=== PATIENT | male | born 1950 | race Caucasian/White ===

== ENCOUNTER → 2016-08-26 | Outpatient (CLI) | payer MEDICARE, MEDICAID ==
[2016-08-26 11:09] LABS: Basophils # (auto) 0.1 uL; Basophils % (auto) 0.9 % (0.0-2.0); Eosinophils # (auto) 0.3 uL; Eosinophils % (auto) 3.8 % (0.0-7.0); Hematocrit 42.1 % (41.0-53.0); Hemoglobin 13.3 g/dL (13.5-17.5); Lymphocytes # (auto) 1.5 uL; Lymphocytes % (auto) 18.2 % (10.0-50.0); Mean Corpuscular Hemoglobin 29.6 pg (28.0-32.0); Mean Corpuscular Hgb Conc. 31.5 g/dL (32.0-36.0); Mean Corpuscular Volume 93.8 fL (80.0-100.0); Mean Platelet Volume 7.8 fL (7.4-10.4); Monocytes # (auto) 0.8 uL; Neutrophils # (auto) 5.8 uL; Neutrophils % (auto) 68.1 % (37.0-80.0); Platelet Count (auto) 348 10^3/uL (140-450); Red Cell Distribution Width 14.5 % (11.6-16.0); White Blood Cell 8.5 10^3/uL (4.4-10.8)
[2016-08-26 11:50] LABS: Albumin 3.7 g/dL (3.4-5.0); BUN/Creatinine Ratio 9.9; Bilirubin, Total 0.2 mg/dL (0.2-1.0); Calcium 9.6 mg/dL (8.5-10.1); Potassium 4.1 mmol/L (3.5-5.1); Total Protein 7.8 g/dL (6.4-8.2)
[2016-08-26 11:52] LABS: Vitamin B12 > 2000 pg/mL (211-911)
== END | disposition home or self-care (01) ==
LOC: LAB 10:38
PROVIDERS: ATTEND Internal Medicine
DX: C61 Malignant neoplasm of prostate (principal); D61.818 Other pancytopenia
CPT/HCPCS: 36415; 80053; 82306; 82607; 83615; 84153; 85025

== ENCOUNTER → 2017-02-28 | Outpatient (CLI) | payer MEDICARE, MEDICAID ==
[~2017-02-28] MED LIST: CARB200T4 PO; CHOL20007 OR; CLOP75TA41 PO; DULO20CA PO; LEVO200I5 IV; LITH300C3 PO; LUBI24CA6 PO; NITR0.4S29 SL; RANI150C11 PO; RIS1T PO; SIMV-13 PO; TEMA30CA PO; TRIA0.5C10 TOP
[2017-02-28 09:09] LABS: Basophils # (auto) 0.1 uL; Basophils % (auto) 0.9 % (0.0-2.0); CONDITION Y; Eosinophils # (auto) 0.3 uL; Hematocrit 35.9 % (41.0-53.0); Hemoglobin 11.9 g/dL (13.5-17.5); Lymphocytes # (auto) 1.4 uL; Mean Corpuscular Hemoglobin 32.1 pg (28.0-32.0); Mean Corpuscular Hgb Conc. 33.3 g/dL (32.0-36.0); Mean Corpuscular Volume 96.5 fL (80.0-100.0); Mean Platelet Volume 8.2 fL (7.4-10.4); Monocytes # (auto) 0.6 uL; Monocytes % (auto) 8.5 % (0.0-12.0); Neutrophils # (auto) 4.3 uL; Neutrophils % (auto) 65.6 % (37.0-80.0); Platelet Count (auto) 268 10^3/uL (140-450); Red Cell Distribution Width 15.5 % (11.6-16.0); White Blood Cell 6.6 10^3/uL (4.4-10.8)
[2017-02-28 17:37] LABS: Potassium 3.8 mmol/L (3.5-5.1)
[2017-02-28 17:54] LABS: Albumin 3.4 g/dL (3.4-5.0); BUN/Creatinine Ratio 7.7; Calcium 8.8 mg/dL (8.5-10.1)
[2017-02-28 17:58] LABS: Bilirubin, Total 0.3 mg/dL (0.2-1.0); Total Protein 6.7 g/dL (6.4-8.2)
== END | disposition home or self-care (01) ==
LOC: LAB 08:11
PROVIDERS: ATTEND Internal Medicine
DX: C61 Malignant neoplasm of prostate (principal); D61.818 Other pancytopenia; E55.9 Vitamin D deficiency, unspecified
CPT/HCPCS: 36415; 80053; 82306; 83615; 84153; 85025

== ENCOUNTER → 2017-04-25 | Outpatient (CLI) | payer MEDICARE, MEDICAID | END | disposition home or self-care (01) | LOC: LAB 06:41 | PROVIDERS: ATTEND Internal Medicine | DX: C61 Malignant neoplasm of prostate (principal); D64.9 Anemia, unspecified; Z85.9 Personal history of malignant neoplasm, unspecified | CPT/HCPCS: 84153 ==

== ENCOUNTER → 2017-07-29 | Outpatient (CLI) | payer MEDICARE, MEDICAID ==
[2017-07-29 12:22] LABS: Basophils # (auto) 0.1 uL; Basophils % (auto) 0.8 % (0.0-2.0); Eosinophils # (auto) 0.1 uL; Eosinophils % (auto) 2.1 % (0.0-7.0); Hematocrit 39.6 % (41.0-53.0); Mean Corpuscular Hemoglobin 31.6 pg (28.0-32.0); Mean Corpuscular Hgb Conc. 32.8 g/dL (32.0-36.0); Mean Corpuscular Volume 96.5 fL (80.0-100.0); Monocytes # (auto) 0.7 uL; Neutrophils % (auto) 73.1 % (37.0-80.0); Platelet Count (auto) 258 10^3/uL (140-450); Red Blood Cells 4.11 10^6/uL (4.5-5.90); Red Cell Distribution Width 13.9 % (11.8-14.3); White Blood Cell 6.9 10^3/uL (4.4-10.8)
[2017-07-29 13:36] LABS: Albumin 3.6 g/dL (3.4-5.0); BUN/Creatinine Ratio 9.3; Bilirubin, Total 0.3 mg/dL (0.2-1.0); Potassium 3.9 mmol/L (3.5-5.1); Total Protein 7.6 g/dL (6.4-8.2)
== END | disposition home or self-care (01) ==
LOC: LAB 11:07
PROVIDERS: ATTEND Internal Medicine
DX: C61 Malignant neoplasm of prostate (principal)
CPT/HCPCS: 36415; 80053; 83615; 84153; 85025

== ENCOUNTER → 2017-09-27 | Outpatient (CLI) | payer MEDICARE, MEDICAID ==
[2017-09-27 08:23] LABS: Basophils # (auto) 0.1 uL; Basophils % (auto) 1.3 % (0.0-2.0); Eosinophils # (auto) 0.3 uL; Eosinophils % (auto) 6.4 % (0.0-7.0); Hematocrit 39.1 % (41.0-53.0); Hemoglobin 12.9 g/dL (13.5-17.5); Lymphocytes # (auto) 0.8 uL; Mean Corpuscular Hemoglobin 31.7 pg (28.0-32.0); Monocytes # (auto) 0.6 uL; Monocytes % (auto) 12.3 % (0.0-12.0); Neutrophils # (auto) 3.1 uL; Nucleated Red Blood Cells % 0.1 %; Platelet Count (auto) 251 10^3/uL (140-450); Red Blood Cells 4.07 10^6/uL (4.5-5.90); Red Cell Distribution Width 14.1 % (11.8-14.3); White Blood Cell 4.9 10^3/uL (4.4-10.8)
[2017-09-27 09:06] LABS: Albumin 3.5 g/dL (3.4-5.0); BUN/Creatinine Ratio 15.1; Calcium 8.9 mg/dL (8.5-10.1); Potassium 4.4 mmol/L (3.5-5.1)
[2017-09-27 09:09] LABS: Bilirubin, Total 0.2 mg/dL (0.2-1.0); Total Protein 7.2 g/dL (6.4-8.2)
== END | disposition home or self-care (01) ==
LOC: LAB 07:39
PROVIDERS: ATTEND Internal Medicine
DX: C61 Malignant neoplasm of prostate (principal); D61.818 Other pancytopenia; R79.89 Other specified abnormal findings of blood chemistry; I10 Essential (primary) hypertension; F31.9 Bipolar disorder, unspecified; Z79.899 Other long term (current) drug therapy
CPT/HCPCS: 36415; 80053; 82105; 82668; 83615; 84153; 85025

== ENCOUNTER → 2018-04-27 | Outpatient (CLI) | payer MEDICARE, MEDICAID ==
[2018-04-27 15:05] LABS: Basophils # (auto) 0.1 uL; Basophils % (auto) 1.3 % (0.0-2.0); Eosinophils # (auto) 0.2 uL; Eosinophils % (auto) 4.8 % (0.0-7.0); Hemoglobin 13.2 g/dL (13.5-17.5); Lymphocytes # (auto) 0.8 uL; Lymphocytes % (auto) 15.3 % (10.0-50.0); Mean Corpuscular Hemoglobin 32.7 pg (28.0-32.0); Mean Corpuscular Hgb Conc. 33.7 g/dL (32.0-36.0); Monocytes # (auto) 0.5 uL; Monocytes % (auto) 9.9 % (0.0-12.0); Neutrophils # (auto) 3.4 uL; Neutrophils % (auto) 68.7 % (37.0-80.0); Platelet Count (auto) 243 10^3/uL (140-450); Red Blood Cells 4.02 10^6/uL (4.5-5.90); Red Cell Distribution Width 13.3 % (11.8-14.3)
[2018-04-27 15:12] LABS: Albumin 3.6 g/dL (3.4-5.0); BUN/Creatinine Ratio 9.2; Potassium 4.3 mmol/L (3.5-5.1)
[2018-04-27 15:15] LABS: Bilirubin, Total 0.3 mg/dL (0.2-1.0); Total Protein 7.6 g/dL (6.4-8.2)
[2018-04-27 15:20] LABS: Prostate Specific Antigen 0.05 ng/mL (0.0-4.0)
== END | disposition home or self-care (01) ==
LOC: LAB 14:11
PROVIDERS: ATTEND Internal Medicine
DX: C61 Malignant neoplasm of prostate (principal)
CPT/HCPCS: 36415; 80053; 82607; 83615; 84153; 85025

== ENCOUNTER → 2018-08-30 | Outpatient (CLI) | payer MEDICARE, MEDICAID ==
[2018-08-30 13:31] LABS: Basophils # (auto) 0 uL; Eosinophils # (auto) 0.2 uL; Eosinophils % (auto) 4.1 % (0.0-7.0); Hematocrit 39.2 % (41.0-53.0); Lymphocytes # (auto) 0.9 uL; Lymphocytes % (auto) 20.2 % (10.0-50.0); Mean Corpuscular Hemoglobin 32.3 pg (28.0-32.0); Mean Corpuscular Volume 97.9 fL (80.0-100.0); Monocytes # (auto) 0.5 uL; Monocytes % (auto) 11.1 % (0.0-12.0); Neutrophils # (auto) 2.8 uL; Neutrophils % (auto) 63.6 % (37.0-80.0); Platelet Count (auto) 261 10^3/uL (140-450); Red Blood Cells 4.01 10^6/uL (4.5-5.90); Red Cell Distribution Width 13.6 % (11.8-14.3); White Blood Cell 4.4 10^3/uL (4.4-10.8)
[2018-08-30 15:15] LABS: Albumin 3.6 g/dL (3.4-5.0); Calcium 9.6 mg/dL (8.5-10.1); Potassium 4.4 mmol/L (3.5-5.1)
[2018-08-30 15:19] LABS: BUN/Creatinine Ratio 12.1; Bilirubin, Total 0.3 mg/dL (0.2-1.0); Total Protein 7.5 g/dL (6.4-8.2)
== END | disposition home or self-care (01) ==
LOC: LAB 13:17
PROVIDERS: ATTEND Internal Medicine
DX: C61 Malignant neoplasm of prostate (principal); D61.818 Other pancytopenia; G89.3 Neoplasm related pain (acute) (chronic)
CPT/HCPCS: 36415; 80053; 83615; 84153; 85025

== ENCOUNTER 2018-10-11 15:00 | Day surgery (SDC) | payer MEDICARE, MEDICAID ==
[~2018-10-11] VITALS: Ht 175.3 cm; Wt 81.6 kg
[2018-10-11] MEDS ORDERED: ATROPINE SULFATE 1 MG/1 ML VIAL ONE (15:07)
[2018-10-11] MEDS ORDERED: ANGIOMAX 250 MG VIAL IV ONE (15:07)
[2018-10-11] MEDS ORDERED: SODIUM CHL 0.9% 50 ML ONE (15:08)
[2018-10-11] MEDS ORDERED: fentaNYL CITRATE 100 MCG/2 ML VL ONE (15:08)
[2018-10-11] MEDS ORDERED: EPINEPHrine HCL 1 MG/10 ML SYRG ONE (15:08)
[2018-10-11] MEDS ORDERED: EPTIFIBATIDE INJ (2MG/ML) 10ML VIAL IV ONE (15:08)
[2018-10-11] MEDS ORDERED: DOPamine 1600MCG/ML D5W 0 ML IV ONE (15:08)
[2018-10-11] MEDS ORDERED: NITROGLYCERIN 50MG/250ML 0 ML IV ONE (15:08)
[2018-10-11] MEDS ORDERED: MIDAZOLAM HCL 1MG/1ML-2 ML VIAL ONE (15:08)
[2018-10-11] MEDS ORDERED: LIDOCAINE 2%HCL (LOCAL ANESTH.) INJ 20ML MDV ONE (15:09)
[2018-10-11] MEDS ORDERED: IOHEXOL 350 MG/ML 100ML IJ ONE (15:09)
[2018-10-11] MEDS ORDERED: MORPHINE SULFATE 4 MG/ML SYR/VIAL IV ONE (15:15)
[2018-10-11] MEDS ORDERED: HEPARIN 1,000 UNITS/ml 1ML VIAL IV ONE (15:15)
[2018-10-11 15:29] VITALS: BP 134/105
[2018-10-11 15:54] LABS: Basophils # (auto) 0 uL; Basophils % (auto) 0.8 % (0.0-2.0); Eosinophils # (auto) 0.1 uL; Eosinophils % (auto) 2.9 % (0.0-7.0); Hematocrit 34.8 % (41.0-53.0); Hemoglobin 11.7 g/dL (13.5-17.5); Lymphocytes % (auto) 19.7 % (10.0-50.0); Mean Corpuscular Hemoglobin 33.2 pg (28.0-32.0); Mean Corpuscular Hgb Conc. 33.6 g/dL (32.0-36.0); Mean Corpuscular Volume 98.7 fL (80.0-100.0); Monocytes # (auto) 0.5 uL; Monocytes % (auto) 10.8 % (0.0-12.0); Neutrophils # (auto) 3.2 uL; Neutrophils % (auto) 65.8 % (37.0-80.0); Platelet Count (auto) 229 10^3/uL (140-450); Red Blood Cells 3.53 10^6/uL (4.5-5.90); Red Cell Distribution Width 13.8 % (11.8-14.3); White Blood Cell 4.9 10^3/uL (4.4-10.8)
[2018-10-11 16:01] LABS: Chloride 108 mmol/L (98-107); Potassium 4.2 mmol/L (3.5-5.1); Sodium 139 mmol/L (136-145)
[2018-10-11 16:03] LABS: INR 0.93 (0.9-1.15); Partial Thromboplastin Time 24.9 sec (23.78-33.04)
[2018-10-11 16:14] LABS: Alanine Aminotransferase 62 U/L (16-61); Albumin 3.5 g/dL (3.4-5.0); Alkaline Phosphatase 107 U/L (45-117); Anion Gap 2 (5-15); Aspartate Aminotransferase 22 U/L (15-37); Bilirubin, Total 0.3 mg/dL (0.2-1.0); Blood Urea Nitrogen 12 mg/dL (7-18); Calcium 9.1 mg/dL (8.5-10.1); Carbon Dioxide 29 mmol/L (21-32); GFR African American 106 mL/min; GFR Non-African American 87 mL/min; Glucose 98 mg/dL (74-106); Magnesium 2.5 mg/dL (1.6-2.6)
[2018-10-11] MEDS ORDERED: SODIUM CHLORIDE 0.9% 1,000 ML IV SCH (16:40)
== END 2018-10-11 18:20 | disposition home or self-care (01) ==
LOC: EDBD 15:00 → ER 15:03 → CATH 15:18
PROVIDERS: ATTEND Internal Medicine Cardiovascular Disease
DX: I25.10 Atherosclerotic heart disease of native coronary artery without angina pectoris (principal); R29.818 Other symptoms and signs involving the nervous system; E78.00 Pure hypercholesterolemia, unspecified; I10 Essential (primary) hypertension; F41.9 Anxiety disorder, unspecified; F31.9 Bipolar disorder, unspecified; F20.89 Other schizophrenia; E11.9 Type 2 diabetes mellitus without complications; J43.8 Other emphysema; Z88.8 Allergy status to other drugs, medicaments and biological substances; Z86.73 Personal history of transient ischemic attack (TIA), and cerebral infarction without residual deficits; Z95.5 Presence of coronary angioplasty implant and graft; Z98.890 Other specified postprocedural states
CPT/HCPCS: 36415; 71045; 80053; 83735; 84484; 85025; 85610; 85730; 93458; A6257; C1760; C1887; C1894; J1644; J2270; J7030; Q9967; 99152; 99153; J0461; J2250

== ENCOUNTER → 2019-01-08 | Outpatient (CLI) | payer MEDICARE ==
[~2019-01-08] MED LIST changes: +BENZ1TAB2 PO; +DOCU-94 PO; +FERR-20 PO; +KEP500T PO; -LEVO200I5 IV; +LEVO200I5 PO; +LITH150C6 PO; +LURA40TA PO; +PERCOT PO; +VALB80CA PO
[2019-01-08 11:56] LABS: Basophils # (auto) 0.1 uL; Basophils % (auto) 1.5 % (0.0-2.0); Eosinophils # (auto) 0.1 uL; Eosinophils % (auto) 1.7 % (0.0-7.0); Hematocrit 42.4 % (41.0-53.0); Hemoglobin 14.2 g/dL (13.5-17.5); Lymphocytes % (auto) 21.8 % (10.0-50.0); Mean Corpuscular Hemoglobin 32.4 pg (28.0-32.0); Mean Corpuscular Hgb Conc. 33.5 g/dL (32.0-36.0); Mean Corpuscular Volume 96.7 fL (80.0-100.0); Monocytes # (auto) 0.3 uL; Monocytes % (auto) 7.7 % (0.0-12.0); Neutrophils # (auto) 2.9 uL; Neutrophils % (auto) 67.3 % (37.0-80.0); Platelet Count (auto) 277 10^3/uL (140-450); Red Blood Cells 4.38 10^6/uL (4.5-5.90); Red Cell Distribution Width 13.8 % (11.8-14.3); White Blood Cell 4.4 10^3/uL (4.4-10.8)
[2019-01-08 12:22] LABS: Albumin 3.5 g/dL (3.4-5.0); Calcium 9.8 mg/dL (8.5-10.1); Potassium 3.7 mmol/L (3.5-5.1)
[2019-01-08 12:25] LABS: BUN/Creatinine Ratio 10.4; Bilirubin, Total 0.3 mg/dL (0.2-1.0); Total Protein 7.2 g/dL (6.4-8.2)
== END | disposition home or self-care (01) ==
LOC: LAB 10:29
PROVIDERS: ATTEND Internal Medicine
DX: D61.818 Other pancytopenia (principal); Z85.46 Personal history of malignant neoplasm of prostate
CPT/HCPCS: 36415; 80053; 83615; 84153; 85025

== ENCOUNTER → 2019-01-29 | Outpatient (CLI) | payer MEDICARE ==
[~2019-01-29] MED LIST changes: +CYAN100056 PO; +LEUP45IN2 IM; +POLYSOL2 EACHEYE
== END | disposition home or self-care (01) ==
LOC: LAB 10:41
PROVIDERS: ATTEND Internal Medicine
DX: A04.71 Enterocolitis due to Clostridium difficile, recurrent (principal)
CPT/HCPCS: 82270; 87045; 87899

== ENCOUNTER 2019-02-02 23:13 | Inpatient (IN) | payer MEDICARE, MEDICAID | END 2019-02-09 21:37 | disposition home or self-care (01) | LOC: ER 23:13 → TELE 23:14 → CENTRAL 02-08 21:15 → TELE-CENTR 02-03 10:03 | PROC: 0DH63UZ Insertion of Feeding Device into Stomach, Percutaneous Approach (ICD-10-PCS; principal; 2019-02-07 11:07) | DX: A41.9 Sepsis, unspecified organism (principal); G93.41 Metabolic encephalopathy; N39.0 Urinary tract infection, site not specified; E87.0 Hyperosmolality and hypernatremia; G40.89 Other seizures; E44.0 Moderate protein-calorie malnutrition; E87.1 Hypo-osmolality and hyponatremia; N17.9 Acute kidney failure, unspecified; R13.10 Dysphagia, unspecified; G20 Parkinson's disease; E86.0 Dehydration; R62.7 Adult failure to thrive; E78.00 Pure hypercholesterolemia, unspecified; F31.9 Bipolar disorder, unspecified; I10 Essential (primary) hypertension; G24.01 Drug induced subacute dyskinesia; E78.5 Hyperlipidemia, unspecified; R26.9 Unspecified abnormalities of gait and mobility; T43.595A Adverse effect of other antipsychotics and neuroleptics, initial encounter; Z86.73 Personal history of transient ischemic attack (TIA), and cerebral infarction without residual deficits; E03.9 Hypothyroidism, unspecified; K44.9 Diaphragmatic hernia without obstruction or gangrene ==

== ENCOUNTER → 2019-05-01 | Outpatient (CLI) | payer MEDICARE, MEDICAID ==
[~2019-05-01] MED LIST changes: -LITH150C6 PO
[2019-05-01 10:52] LABS: Basophils # (auto) 0.1 uL; Basophils % (auto) 1.4 % (0.0-2.0); Eosinophils # (auto) 0.2 uL; Eosinophils % (auto) 3.7 % (0.0-7.0); Hematocrit 36.9 % (41.0-53.0); Hemoglobin 12.1 g/dL (13.5-17.5); Lymphocytes # (auto) 1.1 uL; Lymphocytes % (auto) 25.8 % (10.0-50.0); Mean Corpuscular Hemoglobin 32.7 pg (28.0-32.0); Mean Corpuscular Hgb Conc. 32.9 g/dL (32.0-36.0); Mean Corpuscular Volume 99.3 fL (80.0-100.0); Monocytes # (auto) 0.6 uL; Monocytes % (auto) 13.3 % (0.0-12.0); Neutrophils # (auto) 2.4 uL; Neutrophils % (auto) 55.8 % (37.0-80.0); Nucleated Red Blood Cells % 0.1 %; Platelet Count (auto) 195 10^3/uL (140-450); Red Blood Cells 3.72 10^6/uL (4.5-5.90); Red Cell Distribution Width 13.2 % (11.8-14.3); White Blood Cell 4.3 10^3/uL (4.4-10.8)
[2019-05-01 11:17] LABS: Albumin 3.4 g/dL (3.4-5.0); BUN/Creatinine Ratio 25.3; Calcium 9.1 mg/dL (8.5-10.1); Potassium 4.2 mmol/L (3.5-5.1)
[2019-05-01 11:20] LABS: Bilirubin, Total 0.1 mg/dL (0.2-1.0); Total Protein 7.3 g/dL (6.4-8.2)
[2019-05-01 11:28] LABS: Prostate Specific Antigen 0.05 ng/mL (0.0-4.0)
== END | disposition home or self-care (01) ==
LOC: LAB 10:00
PROVIDERS: ATTEND Internal Medicine
DX: C61 Malignant neoplasm of prostate (principal); D61.818 Other pancytopenia; G89.3 Neoplasm related pain (acute) (chronic)
CPT/HCPCS: 36415; 80053; 82607; 83615; 84153; 85025

== ENCOUNTER → 2019-08-28 | Outpatient (CLI) | payer MEDICARE ==
[2019-08-28 09:59] LABS: Basophils # (auto) 0.1 uL; Basophils % (auto) 1.2 % (0.0-2.0); Eosinophils # (auto) 0.5 uL; Eosinophils % (auto) 10.7 % (0.0-7.0); Hematocrit 37.7 % (41.0-53.0); Hemoglobin 12.7 g/dL (13.5-17.5); Lymphocytes % (auto) 21.9 % (10.0-50.0); Mean Corpuscular Hgb Conc. 33.7 g/dL (32.0-36.0); Mean Corpuscular Volume 97.7 fL (80.0-100.0); Monocytes # (auto) 0.5 uL; Monocytes % (auto) 10.3 % (0.0-12.0); Neutrophils # (auto) 2.6 uL; Neutrophils % (auto) 55.9 % (37.0-80.0); Nucleated Red Blood Cells % 0.1 %; Platelet Count (auto) 249 10^3/uL (140-450); Red Blood Cells 3.86 10^6/uL (4.5-5.90); Red Cell Distribution Width 13.2 % (11.8-14.3); White Blood Cell 4.6 10^3/uL (4.4-10.8)
[2019-08-28 10:24] LABS: Calcium 9.4 mg/dL (8.5-10.1); Potassium 4.1 mmol/L (3.5-5.1)
[2019-08-28 10:29] LABS: Albumin 3.4 g/dL (3.4-5.0); BUN/Creatinine Ratio 19.8; Bilirubin, Total 0.2 mg/dL (0.2-1.0); Total Protein 7.5 g/dL (6.4-8.2)
[2019-08-28 10:42] LABS: Prostate Specific Antigen 0.03 ng/mL (0.0-4.0)
== END | disposition home or self-care (01) ==
LOC: LAB 09:40
PROVIDERS: ATTEND Internal Medicine
DX: D61.818 Other pancytopenia (principal); C61 Malignant neoplasm of prostate
CPT/HCPCS: 36415; 80053; 82607; 83615; 84153; 85025

== ENCOUNTER 2020-06-25 10:34 | Emergency (ER) | payer MEDICARE, MEDICAID ==
[~2020-06-25] VITALS: Ht 180.3 cm; Wt 79.4 kg
[~2020-06-25 10:34] MED LIST changes: +TRIA0.5C TOP; -TRIA0.5C10 TOP
[2020-06-25 10:42] VITALS: BP 115/87
[2020-06-25 13:32] LABS: Basophils # (auto) 0 10 ^3/uL (0-0.2); Eosinophils # (auto) 0.1 10 ^3/uL (0-0.8); Eosinophils % (auto) 1.2 % (0.0-7.0); Hematocrit 38.3 % (41.0-53.0); Hemoglobin 12.8 g/dL (13.5-17.5); Lymphocytes # (auto) 0.6 10 ^3/uL (0.4-5.4); Lymphocytes % (auto) 13.7 % (10.0-50.0); Mean Corpuscular Hemoglobin 32.5 pg (28.0-32.0); Mean Corpuscular Hgb Conc. 33.5 g/dL (32.0-36.0); Mean Corpuscular Volume 96.9 fL (80.0-100.0); Monocytes # (auto) 0.4 10 ^3/uL (0-1.3); Monocytes % (auto) 8.9 % (0.0-12.0); Neutrophils # (auto) 3.5 10 ^3/uL (1.6-8.6); Neutrophils % (auto) 75.2 % (37.0-80.0); Platelet Count (auto) 278 10^3/uL (140-450); Red Blood Cells 3.95 10^6/uL (4.5-5.90); Red Cell Distribution Width 13.4 % (11.8-14.3); White Blood Cell 4.7 10^3/uL (4.4-10.8)
[2020-06-25 13:52] LABS: Albumin 3.4 g/dL (3.4-5.0); Calcium 9.3 mg/dL (8.5-10.1); Potassium 4.2 mmol/L (3.5-5.1)
[2020-06-25 13:56] LABS: INR 0.97 (0.9-1.15); Partial Thromboplastin Time 24.5 sec (23.0-31.2)
[2020-06-25 13:58] LABS: Bilirubin, Total 0.3 mg/dL (0.2-1.0); Total Protein 7.4 g/dL (6.4-8.2)
== END 2020-06-25 16:25 | disposition left against medical advice (07) ==
LOC: ER 10:34
DX: K94.23 Gastrostomy malfunction (principal); E11.9 Type 2 diabetes mellitus without complications; I10 Essential (primary) hypertension; Z90.49 Acquired absence of other specified parts of digestive tract; Z79.899 Other long term (current) drug therapy; Z98.61 Coronary angioplasty status; Z20.828 Contact with and (suspected) exposure to other viral communicable diseases
CPT/HCPCS: 36415; 80053; 85025; 85610; 85730; 99283; C9803; U0003

== ENCOUNTER → 2020-06-27 | Day surgery (SDC) | payer MEDICARE, MEDICAID ==
[~2020-06-27] MED LIST changes: +LIDOCAINE VISCOUS 2% 15ML UD ONE; +MIDAZOLAM HCL 5 MG/ML-1ML VIAL ONE; +SODIUM CHLORIDE LOCK 10 ML ONE; +ceFAZolin 1GM 2 GM in D5W 5% 100 ML IV ONE; +ceFAZolin 1GM/50ML 50 ML IV ONE; +diphenhdrAMINE HCL 50 MG/1 ML VL ONE; +fentaNYL CITRATE 100 MCG/2 ML VL ONE
[2020-06-27 13:50] VITALS: BP 163/64
== END | disposition home or self-care (01) ==
LOC: GI 11:27
PROVIDERS: ATTEND Internal Medicine Gastroenterology
DX: K94.23 Gastrostomy malfunction (principal); K29.50 Unspecified chronic gastritis without bleeding; G40.909 Epilepsy, unspecified, not intractable, without status epilepticus; J43.9 Emphysema, unspecified; I25.10 Atherosclerotic heart disease of native coronary artery without angina pectoris; F20.9 Schizophrenia, unspecified; F41.9 Anxiety disorder, unspecified; F17.200 Nicotine dependence, unspecified, uncomplicated; F31.9 Bipolar disorder, unspecified; Z98.890 Other specified postprocedural states; Z79.899 Other long term (current) drug therapy; Z95.5 Presence of coronary angioplasty implant and graft; Z85.46 Personal history of malignant neoplasm of prostate; Z80.0 Family history of malignant neoplasm of digestive organs; Z88.8 Allergy status to other drugs, medicaments and biological substances
CPT/HCPCS: 43239; 43246; 82962; 88305; 88342; B4087; J0690; J1200; J2250; J3010; J7030; J7060; 99153; G0500

== ENCOUNTER → 2021-10-16 | Day surgery (SDC) | payer MEDICARE, MEDICAID ==
[2021-10-14 09:14] LABS: Basophils # (auto) 0.1 10 ^3/uL (0-0.2); Eosinophils # (auto) 0.5 10 ^3/uL (0-0.8); Eosinophils % (auto) 8.5 % (0.0-7.0); Hematocrit 35.8 % (41.0-53.0); Hemoglobin 12.7 g/dL (13.5-17.5); Lymphocytes # (auto) 0.9 10 ^3/uL (0.4-5.4); Lymphocytes % (auto) 14.6 % (10.0-50.0); Mean Corpuscular Hemoglobin 33.7 pg (28.0-32.0); Mean Corpuscular Hgb Conc. 35.6 g/dL (32.0-36.0); Mean Corpuscular Volume 94.8 fL (80.0-100.0); Monocytes # (auto) 0.5 10 ^3/uL (0-1.3); Monocytes % (auto) 7.8 % (0.0-12.0); Neutrophils # (auto) 4.2 10 ^3/uL (1.6-8.6); Neutrophils % (auto) 68.1 % (37.0-80.0); Nucleated Red Blood Cells % 0.1 %; Red Blood Cells 3.78 10^6/uL (4.5-5.90); Red Cell Distribution Width 13.2 % (11.8-14.3); White Blood Cell 6.2 10^3/uL (4.4-10.8)
[2021-10-14 09:41] LABS: INR 0.94 (0.9-1.15); Partial Thromboplastin Time 24.7 sec (23.6-33.0)
[2021-10-14 09:50] LABS: Albumin 3.5 g/dL (3.4-5.0); Calcium 9.2 mg/dL (8.5-10.1); Potassium 4.4 mmol/L (3.5-5.1)
[2021-10-14 09:55] LABS: Bilirubin, Total 0.3 mg/dL (0.2-1.0); Total Protein 7.3 g/dL (6.4-8.2)
[~2021-10-16] VITALS: Ht 175.3 cm; Wt 79.8 kg
[~2021-10-16] MED LIST changes: +ARTISOL13 EACHEYE; +ATOR20TA PO; -BENZ1TAB2 PO; +CARB10TA5 PO; -CARB200T4 PO; +CARB200T5 PO; -CLOP75TA41 PO; +CLOP75TA70 PO; -DULO20CA PO; +DULO60CA PO; -FERR-20 PO; +KETO2AER3 EX; -LEUP45IN2 IM; -LIDOCAINE VISCOUS 2% 15ML UD ONE; +PANT40TA2 PO; -RANI150C11 PO; -RIS1T PO; -SIMV-13 PO; -SODIUM CHLORIDE LOCK 10 ML ONE; -TEMA30CA PO; -TRIA0.5C TOP; -ceFAZolin 1GM 2 GM in D5W 5% 100 ML IV ONE; -ceFAZolin 1GM/50ML 50 ML IV ONE
[2021-10-16 14:10] VITALS: BP 132/69
== END | disposition home or self-care (01) ==
LOC: GI 12:42
PROVIDERS: ATTEND Internal Medicine Gastroenterology
DX: R19.5 Other fecal abnormalities (principal); K59.04 Chronic idiopathic constipation; J43.9 Emphysema, unspecified; G47.30 Sleep apnea, unspecified; I25.10 Atherosclerotic heart disease of native coronary artery without angina pectoris; I25.2 Old myocardial infarction; I10 Essential (primary) hypertension; E03.9 Hypothyroidism, unspecified; F32.9 Major depressive disorder, single episode, unspecified; F41.9 Anxiety disorder, unspecified; F17.200 Nicotine dependence, unspecified, uncomplicated; Z95.5 Presence of coronary angioplasty implant and graft; Z98.890 Other specified postprocedural states; Z85.46 Personal history of malignant neoplasm of prostate; Z80.0 Family history of malignant neoplasm of digestive organs; Z20.822 Contact with and (suspected) exposure to COVID-19
CPT/HCPCS: 36415; 45330; 80053; 85025; 85610; 85730; J1200; J2250; J3010; J7030; U0003; 45378

== ENCOUNTER → 2021-11-04 | Outpatient (CLI) | payer OTHER, MEDICAID, MEDICARE ==
[~2021-11-04] MED LIST changes: -MIDAZOLAM HCL 5 MG/ML-1ML VIAL ONE; -diphenhdrAMINE HCL 50 MG/1 ML VL ONE; -fentaNYL CITRATE 100 MCG/2 ML VL ONE
[2021-11-04 11:49] LABS: Basophils # (auto) 0.1 10 ^3/uL (0-0.2); Basophils % (auto) 1.8 % (0.0-2.0); Eosinophils # (auto) 0.5 10 ^3/uL (0-0.8); Eosinophils % (auto) 7.1 % (0.0-7.0); Hematocrit 37.4 % (41.0-53.0); Hemoglobin 12.5 g/dL (13.5-17.5); Lymphocytes # (auto) 0.8 10 ^3/uL (0.4-5.4); Lymphocytes % (auto) 12.2 % (10.0-50.0); Mean Corpuscular Hemoglobin 32.2 pg (28.0-32.0); Mean Corpuscular Hgb Conc. 33.5 g/dL (32.0-36.0); Mean Corpuscular Volume 96.2 fL (80.0-100.0); Monocytes # (auto) 0.6 10 ^3/uL (0-1.3); Monocytes % (auto) 8.4 % (0.0-12.0); Neutrophils # (auto) 4.7 10 ^3/uL (1.6-8.6); Neutrophils % (auto) 70.5 % (37.0-80.0); Nucleated Red Blood Cells % 0.1 %; Red Blood Cells 3.89 10^6/uL (4.5-5.90); Red Cell Distribution Width 13.3 % (11.8-14.3); White Blood Cell 6.6 10^3/uL (4.4-10.8)
[2021-11-04 12:17] LABS: Albumin 3.6 g/dL (3.4-5.0); Calcium 9.3 mg/dL (8.5-10.1); Potassium 4.9 mmol/L (3.5-5.1)
[2021-11-04 12:22] LABS: BUN/Creatinine Ratio 16.4; Bilirubin, Total 0.4 mg/dL (0.2-1.0); Total Protein 7.7 g/dL (6.4-8.2)
== END | disposition home or self-care (01) ==
LOC: LAB 11:32
PROVIDERS: ATTEND Internal Medicine Gastroenterology
DX: K59.02 Outlet dysfunction constipation (principal); R13.19 Other dysphagia; R94.5 Abnormal results of liver function studies; Z86.010 Personal history of colon polyps
CPT/HCPCS: 36415; 80053; 82378; 85025

== ENCOUNTER 2022-02-05 12:36 | Day surgery (SDC) | payer MEDICARE, MEDICAID ==
[2022-02-02 10:23] LABS: Basophils # (auto) 0.1 10 ^3/uL (0-0.2); Eosinophils # (auto) 0.3 10 ^3/uL (0-0.8); Eosinophils % (auto) 4.8 % (0.0-7.0); Hematocrit 37.6 % (41.0-53.0); Hemoglobin 12.3 g/dL (13.5-17.5); Lymphocytes % (auto) 16.3 % (10.0-50.0); Mean Corpuscular Hgb Conc. 32.6 g/dL (32.0-36.0); Mean Corpuscular Volume 95.1 fL (80.0-100.0); Monocytes # (auto) 0.5 10 ^3/uL (0-1.3); Monocytes % (auto) 8.1 % (0.0-12.0); Neutrophils # (auto) 4.5 10 ^3/uL (1.6-8.6); Neutrophils % (auto) 69.8 % (37.0-80.0); Nucleated Red Blood Cells % 0.1 %; Red Blood Cells 3.96 10^6/uL (4.5-5.90); Red Cell Distribution Width 13.5 % (11.8-14.3); White Blood Cell 6.4 10^3/uL (4.4-10.8)
[2022-02-02 10:41] LABS: Potassium 4.3 mmol/L (3.5-5.1)
[2022-02-02 10:44] LABS: INR 0.9 (0.9-1.15); Partial Thromboplastin Time 25.5 sec (24.6-33.4)
[2022-02-02 10:49] LABS: Albumin 3.6 g/dL (3.4-5.0); BUN/Creatinine Ratio 14.8; Bilirubin, Total 0.4 mg/dL (0.2-1.0); Calcium 9.2 mg/dL (8.5-10.1); Total Protein 7.8 g/dL (6.4-8.2)
[~2022-02-05] VITALS: Ht 175.3 cm; Wt 83.0 kg
[~2022-02-05 12:36] MED LIST changes: +CLOB0.055 EX; +FLUO0.059 EX; +HYD25TP TOP; +LACT10SO3 PO; +LEV100T PO; -LEVO200I5 PO
[2022-02-05] MEDS ORDERED: FLUMAZENIL 0.1 MG/ML INJ 10ML MDV IV ONE (13:55)
[2022-02-05] MEDS ORDERED: SODIUM CHLORIDE LOCK 10 ML ONE (13:55)
[2022-02-05] MEDS ORDERED: NALOXONE HCL 0.4 MG/ML VIAL ONE (13:55)
[2022-02-05] MEDS ORDERED: diphenhdrAMINE HCL 50 MG/1 ML VL ONE (13:56)
[2022-02-05] MEDS: fentaNYL CITRATE 100 MCG/2 ML VL ONE ×3 (15:06→15:35)
[2022-02-05] MEDS: MIDAZOLAM HCL 5 MG/ML-1ML VIAL ONE ×2 (15:06→15:17)
[2022-02-05] MEDS ORDERED: ACCU-CHEK COMFORT CURVE STRIP VI ONE (16:15)
[2022-02-05 16:30] VITALS: BP 157/67
== END 2022-02-05 17:00 | disposition home or self-care (01) ==
LOC: GI 12:36
PROVIDERS: ATTEND Internal Medicine Gastroenterology
DX: R97.0 Elevated carcinoembryonic antigen [CEA] (principal); D12.3 Benign neoplasm of transverse colon; Q43.8 Other specified congenital malformations of intestine; K64.8 Other hemorrhoids; K59.09 Other constipation; I25.2 Old myocardial infarction; E11.9 Type 2 diabetes mellitus without complications; G20 Parkinson's disease; E03.9 Hypothyroidism, unspecified; J43.9 Emphysema, unspecified; G47.30 Sleep apnea, unspecified; F31.9 Bipolar disorder, unspecified; Z86.010 Personal history of colon polyps; Z98.890 Other specified postprocedural states; Z79.899 Other long term (current) drug therapy; Z88.8 Allergy status to other drugs, medicaments and biological substances; Z20.822 Contact with and (suspected) exposure to COVID-19; Z95.5 Presence of coronary angioplasty implant and graft; Z80.0 Family history of malignant neoplasm of digestive organs; Z83.42 Family history of familial hypercholesterolemia; Z82.69 Family history of other diseases of the musculoskeletal system and connective tissue; Z81.1 Family history of alcohol abuse and dependence
CPT/HCPCS: 36415; 45385; 80053; 82962; 85025; 85610; 85730; 88305; J1200; J2250; J2310; J3010; J7030; U0003; 99152; 99153

== ENCOUNTER 2022-12-28 18:30 | Inpatient (IN) | payer MEDICARE, MEDICAID ==
[~2022-12-28] VITALS: Ht 170.2 cm; Wt 94.9 kg
[~2022-12-28 18:30] MED LIST changes: +CARB-87 PO; -CARB10TA5 PO; -DULO60CA PO; +DULO60CA41 PO; +FLUO-381 EX; -FLUO0.059 EX; -LURA40TA PO; +LURA40TA2 PO
[2022-12-28 19:12] LABS: Basophils # (auto) 0.1 10 ^3/uL (0-0.2); Basophils % (auto) 0.6 % (0.0-2.0); Eosinophils # (auto) 0.4 10 ^3/uL (0-0.8); Eosinophils % (auto) 3.1 % (0.0-7.0); Hematocrit 40.3 % (41.0-53.0); Hemoglobin 12.9 g/dL (13.5-17.5); Lymphocytes # (auto) 1.2 10 ^3/uL (0.4-5.4); Lymphocytes % (auto) 10.5 % (10.0-50.0); Mean Corpuscular Hemoglobin 31.2 pg (28.0-32.0); Mean Corpuscular Volume 97.4 fL (80.0-100.0); Monocytes # (auto) 0.8 10 ^3/uL (0-1.3); Monocytes % (auto) 7.3 % (0.0-12.0); Neutrophils # (auto) 8.9 10 ^3/uL (1.6-8.6); Neutrophils % (auto) 78.5 % (37.0-80.0); Nucleated Red Blood Cells % 0.1 %; Red Blood Cells 4.14 10^6/uL (4.5-5.90); Red Cell Distribution Width 14.1 % (11.8-14.3); White Blood Cell 11.3 10^3/uL (4.4-10.8)
[2022-12-28 19:34] LABS: Albumin 3.3 g/dL (3.4-5.0); Calcium 9.9 mg/dL (8.5-10.1)
[2022-12-28 19:42] LABS: BUN/Creatinine Ratio 24.1 (10.0-20.0); Bilirubin, Total 0.4 mg/dL (0.2-1.0); Total Protein 8.1 g/dL (6.4-8.2)
[2022-12-28] MEDS ORDERED: AZITHROMYCIN 500MG/ 250ML 250 ML IV ONE (22:30)
[2022-12-28] MEDS ORDERED: cefTRIAXone 1GM/50ML D5W 50 ML IV ONE (22:30)
[2022-12-28 23:00] LABS: Lactic Acid w/Reflex 3.4 mmol/L (0.4-2.0)
[2022-12-29] MEDS ORDERED: levETIRAcetam 500 MG/5ML INJ IV ONE (01:52)
[2022-12-29 04:01] LABS: Urine Bacteria NONE SEEN /hpf (None Seen); Urine Blood 1+ /uL (Negative); Urine Hyaline Cast FEW /lpf (0 - 2); Urine Mucus FEW (None Seen); Urine Specific Gravity 1.023 (1.001-1.035); Urine WBC 3 /hpf (0 - 3)
[2022-12-29] MEDS ORDERED: ONDANSETRON HCL 4 MG/2 ML VIAL IV PRN (04:30)
[2022-12-29] MEDS ORDERED: ACETAMINOPHEN 325 MG TAB PO PRN (04:30)
[2022-12-29] MEDS ORDERED: SODIUM CHLORIDE 0.9% 1,000 ML IV ONE ×2 (04:30→14:15)
[2022-12-29] MEDS: carBAMazepine 200 MG TAB PO SCH ×3 (06:29→23:34)
[2022-12-29] MEDS: levETIRAcetam 500 MG TAB PO SCH ×3 (06:29→23:31)
[2022-12-29] MEDS: LEVOTHYROXINE SODIUM 88 MCG TAB PO SCH (09:50)
[2022-12-29] MEDS: CLOPIDOGREL BISULFATE 75 MG TAB PO SCH (09:51)
[2022-12-29] MEDS: PANTOPRAZOLE 40 MG TAB PO SCH (09:51)
[2022-12-29] MEDS: MEMANTINE HCL 5 MG TAB PO SCH ×2 (09:59→23:32)
[2022-12-29] MEDS ORDERED: LISINOPRIL 10 MG TAB PO SCH (10:00)
[2022-12-29] MEDS ORDERED: VANCOMYCIN PER PHARMACY 0 MG IV SCH (14:15)
[2022-12-29] MEDS ORDERED: VANCOMYCIN 1GM/250ML 250 ML IV ONE (14:45)
[2022-12-29] MEDS: D5W/SOD CHLO 0.9% 1,000 ML IV SCH (15:07)
[2022-12-29] MEDS: LACTULOSE 20Gm/30ML SOLN PEG SCH ×2 (18:57→23:30)
[2022-12-29] MEDS: ATORVASTATIN 20 MG TAB PO SCH (23:32)
[2022-12-30] MEDS: cefTRIAXone 1GM/50ML D5W 50 ML IV SCH ×2 (02:40→22:25)
[2022-12-30] MEDS: D5W/SOD CHLO 0.9% 1,000 ML IV SCH ×4 (02:51→22:39)
[2022-12-30] MEDS: LACTULOSE 20Gm/30ML SOLN PEG SCH ×2 (03:03→07:13)
[2022-12-30] MEDS: AZITHROMYCIN 500MG/ 250ML 250 ML IV SCH ×2 (03:03→22:26)
[2022-12-30 07:04] LABS: Basophils # (auto) 0 10 ^3/uL (0-0.2); Basophils % (auto) 0.3 % (0.0-2.0); Eosinophils # (auto) 0.2 10 ^3/uL (0-0.8); Lymphocytes # (auto) 0.8 10 ^3/uL (0.4-5.4); Mean Corpuscular Volume 103.6 fL (80.0-100.0); Neutrophils # (auto) 10.1 10 ^3/uL (1.6-8.6)
[2022-12-30 07:06] LABS: Eosinophils % (auto) 1.4 % (0.0-7.0); Hematocrit 36.6 % (41.0-53.0); Hemoglobin 10.9 g/dL (13.5-17.5); Lymphocytes % (auto) 6.2 % (10.0-50.0); Mean Corpuscular Hemoglobin 30.9 pg (28.0-32.0); Mean Corpuscular Hgb Conc. 29.8 g/dL (32.0-36.0); Monocytes # (auto) 1.3 10 ^3/uL (0-1.3); Monocytes % (auto) 10.3 % (0.0-12.0); Neutrophils % (auto) 81.8 % (37.0-80.0); Red Blood Cells 3.53 10^6/uL (4.5-5.90); Red Cell Distribution Width 15.2 % (11.8-14.3); White Blood Cell 12.4 10^3/uL (4.4-10.8)
[2022-12-30] MEDS: levETIRAcetam 500 MG TAB PO SCH ×3 (07:15→22:24)
[2022-12-30] MEDS: carBAMazepine 200 MG TAB PO SCH ×3 (07:16→22:24)
[2022-12-30] MEDS: LEVOTHYROXINE SODIUM 88 MCG TAB PO SCH (07:16)
[2022-12-30 07:39] LABS: Potassium 4.1 mmol/L (3.5-5.1)
[2022-12-30 07:56] LABS: Albumin 2.7 g/dL (3.4-5.0); BUN/Creatinine Ratio 26.8 (10.0-20.0); Bilirubin, Total 0.3 mg/dL (0.2-1.0); Calcium 8.8 mg/dL (8.5-10.1); Total Protein 6.5 g/dL (6.4-8.2)
[2022-12-30] MEDS: CLOPIDOGREL BISULFATE 75 MG TAB PO SCH (11:09)
[2022-12-30] MEDS: PANTOPRAZOLE 40 MG TAB PO SCH (11:09)
[2022-12-30] MEDS: MEMANTINE HCL 5 MG TAB PO SCH ×2 (11:09→22:24)
[2022-12-30] MEDS ORDERED: VANCOMYCIN 1GM/250ML 250 ML IV SCH (15:00)
[2022-12-30 17:26] VITALS: BP 121/67
[2022-12-30 20:00] VITALS: BP 153/61
[2022-12-30 22:00] VITALS: BP 153/61
[2022-12-30] MEDS: ATORVASTATIN 20 MG TAB PO SCH (22:24)
[2022-12-30] MEDS: LINEZOLID 600MG/300ML 300 ML IV SCH (23:03)
[2022-12-31 05:00] VITALS: BP 143/62
[2022-12-31] MEDS: carBAMazepine 200 MG TAB PO SCH ×3 (06:11→22:00)
[2022-12-31] MEDS: LEVOTHYROXINE SODIUM 88 MCG TAB PO SCH (06:12)
[2022-12-31] MEDS: D5W/SOD CHLO 0.9% 1,000 ML IV SCH (06:12)
[2022-12-31] MEDS: levETIRAcetam 500 MG TAB PO SCH (06:12)
[2022-12-31 06:31] LABS: Basophils # (auto) 0 10 ^3/uL (0-0.2); Basophils % (auto) 0.2 % (0.0-2.0); Eosinophils # (auto) 0 10 ^3/uL (0-0.8); Eosinophils % (auto) 0.2 % (0.0-7.0); Hematocrit 32.7 % (41.0-53.0); Hemoglobin 10.5 g/dL (13.5-17.5); Lymphocytes # (auto) 0.5 10 ^3/uL (0.4-5.4); Lymphocytes % (auto) 4.6 % (10.0-50.0); Mean Corpuscular Hemoglobin 31.5 pg (28.0-32.0); Mean Corpuscular Volume 98.6 fL (80.0-100.0); Monocytes # (auto) 1.4 10 ^3/uL (0-1.3); Monocytes % (auto) 11.8 % (0.0-12.0); Neutrophils # (auto) 9.8 10 ^3/uL (1.6-8.6); Neutrophils % (auto) 83.2 % (37.0-80.0); Red Blood Cells 3.32 10^6/uL (4.5-5.90); Red Cell Distribution Width 14.5 % (11.8-14.3); White Blood Cell 11.8 10^3/uL (4.4-10.8)
[2022-12-31 06:47] LABS: Calcium 9.3 mg/dL (8.5-10.1); Potassium 3.6 mmol/L (3.5-5.1)
[2022-12-31 06:50] LABS: BUN/Creatinine Ratio 22.2 (10.0-20.0)
[2022-12-31 08:00] VITALS: BP 117/65
[2022-12-31 09:00] VITALS: BP 117/65
[2022-12-31] MEDS: SOD CHL 0.45% 1,000 ML IV SCH ×2 (11:29→23:50)
[2022-12-31] MEDS: LINEZOLID 600MG/300ML 300 ML IV SCH (11:29)
[2022-12-31] MEDS: PANTOPRAZOLE 40 MG/10 ML VIAL INJ IV SCH (11:30)
[2022-12-31] MEDS: CLOPIDOGREL BISULFATE 75 MG TAB PO SCH (11:34)
[2022-12-31] MEDS: MEMANTINE HCL 5 MG TAB PO SCH ×2 (11:34→22:00)
[2022-12-31] MEDS: FREE WATER GT SCH ×3 (12:44→23:52)
[2022-12-31 13:00] VITALS: BP 147/58
[2022-12-31] MEDS: levETIRAcetam 500 MG/5ML ORAL SOLN UD GT SCH ×2 (14:00→23:52)
[2022-12-31] MEDS: Jevity 1.2 Cal/Fiber 1 Liter GT SCH (17:44)
[2022-12-31] MEDS: cefTRIAXone 1GM/50ML D5W 50 ML IV SCH (21:16)
[2022-12-31 22:00] VITALS: BP 135/59
[2022-12-31] MEDS: AZITHROMYCIN 500MG/ 250ML 250 ML IV SCH (23:53)
[2023-01-01] MEDS: ATORVASTATIN 20 MG TAB PEG SCH ×2 (00:07→22:47)
[2023-01-01] MEDS: LINEZOLID 600MG/300ML 300 ML IV SCH ×3 (00:45→10:28)
[2023-01-01] MEDS: FREE WATER GT SCH ×6 (02:10→22:46)
[2023-01-01 05:18] VITALS: BP 128/64
[2023-01-01 05:42] LABS: Albumin 2.2 g/dL (3.4-5.0); Calcium 9.4 mg/dL (8.5-10.1)
[2023-01-01 05:44] LABS: BUN/Creatinine Ratio 17.9 (10.0-20.0)
[2023-01-01 05:46] LABS: Bilirubin, Total 0.3 mg/dL (0.2-1.0); Total Protein 6.2 g/dL (6.4-8.2)
[2023-01-01] MEDS: carBAMazepine 200 MG TAB PO SCH ×3 (06:00→22:00)
[2023-01-01 06:09] LABS: Basophils # (auto) 0 10 ^3/uL (0-0.2); Basophils % (auto) 0.4 % (0.0-2.0); Eosinophils # (auto) 0.2 10 ^3/uL (0-0.8); Eosinophils % (auto) 1.8 % (0.0-7.0); Hematocrit 33.1 % (41.0-53.0); Hemoglobin 10.5 g/dL (13.5-17.5); Lymphocytes # (auto) 1.1 10 ^3/uL (0.4-5.4); Lymphocytes % (auto) 10.3 % (10.0-50.0); Mean Corpuscular Hemoglobin 31.4 pg (28.0-32.0); Mean Corpuscular Hgb Conc. 31.8 g/dL (32.0-36.0); Mean Corpuscular Volume 98.7 fL (80.0-100.0); Monocytes # (auto) 1.3 10 ^3/uL (0-1.3); Monocytes % (auto) 12.2 % (0.0-12.0); Neutrophils # (auto) 7.8 10 ^3/uL (1.6-8.6); Neutrophils % (auto) 75.3 % (37.0-80.0); Nucleated Red Blood Cells % 0.1 %; Red Blood Cells 3.36 10^6/uL (4.5-5.90); Red Cell Distribution Width 14.5 % (11.8-14.3); White Blood Cell 10.4 10^3/uL (4.4-10.8)
[2023-01-01] MEDS: LEVOTHYROXINE SODIUM 88 MCG TAB PO SCH (06:22)
[2023-01-01] MEDS: levETIRAcetam 500 MG/5ML ORAL SOLN UD GT SCH ×2 (06:23→22:46)
[2023-01-01 08:00] VITALS: BP 112/68
[2023-01-01 09:00] VITALS: BP 136/65
[2023-01-01] MEDS: MEMANTINE HCL 5 MG TAB PO SCH (10:27)
[2023-01-01] MEDS: PANTOPRAZOLE 40 MG/10 ML VIAL INJ IV SCH (10:27)
[2023-01-01] MEDS: CLOPIDOGREL BISULFATE 75 MG TAB PEG SCH (10:27)
[2023-01-01 13:00] VITALS: BP 133/64
[2023-01-01 17:00] VITALS: BP 141/70
[2023-01-01] MEDS: cefTRIAXone 1GM/50ML D5W 50 ML IV SCH (21:22)
[2023-01-01 22:00] VITALS: BP 132/66
[2023-01-01] MEDS ORDERED: ATORVASTATIN 20 MG TAB PEG SCH (22:00)
[2023-01-01] MEDS: AZITHROMYCIN 500MG/ 250ML 250 ML IV SCH (22:47)
[2023-01-01] MEDS: Jevity 1.2 Cal/Fiber 1 Liter GT SCH (23:06)
[2023-01-02] MEDS: FREE WATER GT SCH ×6 (02:00→21:40)
[2023-01-02 05:00] VITALS: BP 129/66
[2023-01-02] MEDS: carBAMazepine 200 MG TAB PO SCH (06:00)
[2023-01-02] MEDS: LEVOTHYROXINE SODIUM 88 MCG TAB PO SCH (06:17)
[2023-01-02 06:31] LABS: Alanine Aminotransferase 56 U/L (16-61); Albumin 2.1 g/dL (3.4-5.0); Anion Gap 5 (5-15); Aspartate Aminotransferase 75 U/L (15-37); BUN/Creatinine Ratio 18.4 (10.0-20.0); Blood Urea Nitrogen 18 mg/dL (7-18); Calcium 8.9 mg/dL (8.5-10.1); Carbon Dioxide 23 mmol/L (21-32); Chloride 124 mmol/L (98-107); GFR African American 97 mL/min; GFR Non-African American 80 mL/min; Glucose 99 mg/dL (74-106); Potassium 4.1 mmol/L (3.5-5.1); Sodium 152 mmol/L (136-145)
[2023-01-02 06:33] LABS: Alkaline Phosphatase 81 U/L (45-117); Bilirubin, Total 0.2 mg/dL (0.2-1.0); Total Protein 6.1 g/dL (6.4-8.2)
[2023-01-02 06:38] LABS: Basophils # (auto) 0.1 10 ^3/uL (0-0.2); Basophils % (auto) 0.8 % (0.0-2.0); Eosinophils # (auto) 0.4 10 ^3/uL (0-0.8); Eosinophils % (auto) 4.2 % (0.0-7.0); Hematocrit 31.3 % (41.0-53.0); Hemoglobin 10.2 g/dL (13.5-17.5); Lymphocytes % (auto) 11.4 % (10.0-50.0); Mean Corpuscular Hemoglobin 32.5 pg (28.0-32.0); Mean Corpuscular Hgb Conc. 32.5 g/dL (32.0-36.0); Monocytes % (auto) 10.7 % (0.0-12.0); Neutrophils # (auto) 6.6 10 ^3/uL (1.6-8.6); Neutrophils % (auto) 72.9 % (37.0-80.0); Nucleated Red Blood Cells % 0.1 %; Red Blood Cells 3.13 10^6/uL (4.5-5.90); Red Cell Distribution Width 14.9 % (11.8-14.3)
[2023-01-02 09:16] VITALS: BP 134/78
[2023-01-02] MEDS: PANTOPRAZOLE 40 MG/10 ML VIAL INJ IV SCH (09:48)
[2023-01-02] MEDS: CLOPIDOGREL BISULFATE 75 MG TAB PEG SCH (09:48)
[2023-01-02] MEDS: LINEZOLID 600MG/300ML 300 ML IV SCH ×2 (09:49→21:33)
[2023-01-02] MEDS: levETIRAcetam 500 MG/5ML ORAL SOLN UD GT SCH ×2 (09:49→21:40)
[2023-01-02 12:30] VITALS: BP 134/76
[2023-01-02] MEDS: carBAMazepine 200 MG/10 ML Ud ORAL Susp GT SCH ×2 (14:49→21:41)
[2023-01-02 17:00] VITALS: BP 128/70
[2023-01-02] MEDS: cefTRIAXone 1GM/50ML D5W 50 ML IV SCH (20:11)
[2023-01-02] MEDS: AZITHROMYCIN 500MG/ 250ML 250 ML IV SCH (21:31)
[2023-01-02] MEDS: ATORVASTATIN 20 MG TAB PEG SCH (21:39)
[2023-01-02 22:00] VITALS: BP 124/68
[2023-01-03] MEDS: FREE WATER GT SCH ×6 (01:45→22:23)
[2023-01-03 05:00] VITALS: BP 116/60
[2023-01-03] MEDS: Jevity 1.2 Cal/Fiber 1 Liter GT SCH (06:00)
[2023-01-03] MEDS: LEVOTHYROXINE SODIUM 88 MCG TAB PO SCH (06:00)
[2023-01-03 06:15] LABS: Basophils # (auto) 0.1 10 ^3/uL (0-0.2); Basophils % (auto) 0.6 % (0.0-2.0); Eosinophils # (auto) 0.5 10 ^3/uL (0-0.8); Eosinophils % (auto) 5.8 % (0.0-7.0); Hematocrit 30.1 % (41.0-53.0); Hemoglobin 9.9 g/dL (13.5-17.5); Lymphocytes # (auto) 1.3 10 ^3/uL (0.4-5.4); Lymphocytes % (auto) 13.6 % (10.0-50.0); Mean Corpuscular Hgb Conc. 32.9 g/dL (32.0-36.0); Mean Corpuscular Volume 97.1 fL (80.0-100.0); Monocytes # (auto) 0.9 10 ^3/uL (0-1.3); Monocytes % (auto) 9.4 % (0.0-12.0); Neutrophils # (auto) 6.5 10 ^3/uL (1.6-8.6); Neutrophils % (auto) 70.6 % (37.0-80.0); Nucleated Red Blood Cells % 0.1 %; Red Cell Distribution Width 14.1 % (11.8-14.3); White Blood Cell 9.2 10^3/uL (4.4-10.8)
[2023-01-03 06:33] LABS: Calcium 8.6 mg/dL (8.5-10.1); Potassium 3.8 mmol/L (3.5-5.1)
[2023-01-03 06:35] LABS: BUN/Creatinine Ratio 19.4 (10.0-20.0)
[2023-01-03] MEDS: carBAMazepine 200 MG/10 ML Ud ORAL Susp GT SCH ×3 (07:10→22:22)
[2023-01-03 09:00] VITALS: BP 134/62
[2023-01-03] MEDS: LINEZOLID 600MG/300ML 300 ML IV SCH ×2 (09:33→22:19)
[2023-01-03] MEDS: PANTOPRAZOLE 40 MG/10 ML VIAL INJ IV SCH (09:33)
[2023-01-03] MEDS: CLOPIDOGREL BISULFATE 75 MG TAB PEG SCH (09:33)
[2023-01-03] MEDS: levETIRAcetam 500 MG/5ML ORAL SOLN UD GT SCH ×3 (09:34→22:30)
[2023-01-03 12:30] VITALS: BP 143/80
[2023-01-03 16:41] VITALS: BP 146/75
[2023-01-03] MEDS: cefTRIAXone 1GM/50ML D5W 50 ML IV SCH (20:19)
[2023-01-03 22:00] VITALS: BP 137/71
[2023-01-03] MEDS: AZITHROMYCIN 500MG/ 250ML 250 ML IV SCH (22:19)
[2023-01-03] MEDS: ATORVASTATIN 20 MG TAB PEG SCH (22:21)
[2023-01-04] MEDS: Jevity 1.2 Cal/Fiber 1 Liter GT SCH ×2 (00:54→20:42)
[2023-01-04] MEDS: FREE WATER GT SCH ×6 (00:56→22:09)
[2023-01-04 05:00] VITALS: BP 132/57
[2023-01-04 05:47] LABS: Basophils # (auto) 0 10 ^3/uL (0-0.2); Basophils % (auto) 0.7 % (0.0-2.0); Eosinophils # (auto) 0.3 10 ^3/uL (0-0.8); Eosinophils % (auto) 4.3 % (0.0-7.0); Hematocrit 29.4 % (41.0-53.0); Hemoglobin 9.7 g/dL (13.5-17.5); Lymphocytes # (auto) 0.8 10 ^3/uL (0.4-5.4); Lymphocytes % (auto) 11.9 % (10.0-50.0); Mean Corpuscular Hemoglobin 31.7 pg (28.0-32.0); Mean Corpuscular Hgb Conc. 32.9 g/dL (32.0-36.0); Mean Corpuscular Volume 96.5 fL (80.0-100.0); Monocytes # (auto) 0.8 10 ^3/uL (0-1.3); Monocytes % (auto) 11.1 % (0.0-12.0); Red Blood Cells 3.05 10^6/uL (4.5-5.90); Red Cell Distribution Width 14.3 % (11.8-14.3); White Blood Cell 6.9 10^3/uL (4.4-10.8)
[2023-01-04] MEDS: LEVOTHYROXINE SODIUM 88 MCG TAB PO SCH (06:07)
[2023-01-04] MEDS: levETIRAcetam 500 MG/5ML ORAL SOLN UD GT SCH ×3 (06:13→22:09)
[2023-01-04] MEDS: carBAMazepine 200 MG/10 ML Ud ORAL Susp GT SCH ×3 (06:14→22:09)
[2023-01-04 06:17] LABS: Calcium 8.6 mg/dL (8.5-10.1); Potassium 3.9 mmol/L (3.5-5.1)
[2023-01-04 10:57] VITALS: BP 143/59
[2023-01-04] MEDS: CLOPIDOGREL BISULFATE 75 MG TAB PEG SCH (11:08)
[2023-01-04] MEDS: PANTOPRAZOLE 40 MG/10 ML VIAL INJ IV SCH (11:09)
[2023-01-04] MEDS: LINEZOLID 600MG/300ML 300 ML IV SCH ×2 (11:11→22:00)
[2023-01-04 13:00] VITALS: BP 142/82
[2023-01-04 17:00] VITALS: BP 130/73
[2023-01-04] MEDS: cefTRIAXone 1GM/50ML D5W 50 ML IV SCH (20:42)
[2023-01-04] MEDS: AZITHROMYCIN 500MG/ 250ML 250 ML IV SCH (21:59)
[2023-01-04 22:00] VITALS: BP 111/55
[2023-01-04] MEDS: ATORVASTATIN 20 MG TAB PEG SCH (22:02)
[2023-01-05] MEDS: FREE WATER GT SCH ×6 (02:26→22:05)
[2023-01-05 05:00] VITALS: BP 128/40
[2023-01-05] MEDS: carBAMazepine 200 MG/10 ML Ud ORAL Susp GT SCH ×3 (05:12→22:05)
[2023-01-05] MEDS: levETIRAcetam 500 MG/5ML ORAL SOLN UD GT SCH ×3 (05:12→22:05)
[2023-01-05 05:37] LABS: Basophils # (auto) 0.1 10 ^3/uL (0-0.2); Eosinophils # (auto) 0.5 10 ^3/uL (0-0.8); Eosinophils % (auto) 6.4 % (0.0-7.0); Hematocrit 29.7 % (41.0-53.0); Hemoglobin 9.8 g/dL (13.5-17.5); Lymphocytes # (auto) 0.9 10 ^3/uL (0.4-5.4); Lymphocytes % (auto) 10.3 % (10.0-50.0); Mean Corpuscular Hemoglobin 31.8 pg (28.0-32.0); Mean Corpuscular Volume 96.3 fL (80.0-100.0); Monocytes # (auto) 0.7 10 ^3/uL (0-1.3); Monocytes % (auto) 8.2 % (0.0-12.0); Neutrophils # (auto) 6.2 10 ^3/uL (1.6-8.6); Neutrophils % (auto) 74.1 % (37.0-80.0); Nucleated Red Blood Cells % 0.1 %; Red Blood Cells 3.09 10^6/uL (4.5-5.90); Red Cell Distribution Width 14.4 % (11.8-14.3); White Blood Cell 8.4 10^3/uL (4.4-10.8)
[2023-01-05] MEDS: LEVOTHYROXINE SODIUM 88 MCG TAB PO SCH (05:43)
[2023-01-05 05:53] LABS: Calcium 8.9 mg/dL (8.5-10.1); Potassium 4.4 mmol/L (3.5-5.1)
[2023-01-05 06:26] LABS: BUN/Creatinine Ratio 19.4 (10.0-20.0)
[2023-01-05 09:00] VITALS: BP 98/64
[2023-01-05] MEDS ORDERED: DOXY-346 GT (09:56)
[2023-01-05] MEDS: CLOPIDOGREL BISULFATE 75 MG TAB PEG SCH (10:38)
[2023-01-05] MEDS: PANTOPRAZOLE 40 MG/10 ML VIAL INJ IV SCH (10:39)
[2023-01-05] MEDS: LINEZOLID 600MG/300ML 300 ML IV SCH ×2 (10:40→22:05)
[2023-01-05 14:58] VITALS: BP 107/65
[2023-01-05 17:00] VITALS: BP 116/60
[2023-01-05 22:00] VITALS: BP 127/67
[2023-01-05] MEDS: ATORVASTATIN 20 MG TAB PEG SCH (22:05)
[2023-01-05] MEDS: cefTRIAXone 1GM/50ML D5W 50 ML IV SCH (22:05)
[2023-01-05] MEDS: AZITHROMYCIN 500MG/ 250ML 250 ML IV SCH (22:05)
[2023-01-06] MEDS: FREE WATER GT SCH ×5 (02:00→18:00)
[2023-01-06 05:00] VITALS: BP 139/65
[2023-01-06] MEDS: levETIRAcetam 500 MG/5ML ORAL SOLN UD GT SCH ×2 (06:03→14:53)
[2023-01-06] MEDS: carBAMazepine 200 MG/10 ML Ud ORAL Susp GT SCH ×2 (06:03→14:53)
[2023-01-06] MEDS: LEVOTHYROXINE SODIUM 88 MCG TAB PO SCH (06:03)
[2023-01-06 09:51] VITALS: BP 124/68
[2023-01-06] MEDS: LINEZOLID 600MG/300ML 300 ML IV SCH (11:01)
[2023-01-06] MEDS: PANTOPRAZOLE 40 MG/10 ML VIAL INJ IV SCH (11:01)
[2023-01-06] MEDS: CLOPIDOGREL BISULFATE 75 MG TAB PEG SCH (11:02)
[2023-01-06] MEDS ORDERED: GASTROGRAFIN 30 ML SOL XX ONE (12:30)
[2023-01-06 13:00] VITALS: BP 132/64
[2023-01-06] MEDS ORDERED: GASTROGRAFIN 30 ML SOL ONE (13:24)
[2023-01-06 16:42] VITALS: BP 145/61
[2023-01-06 22:00] VITALS: BP 135/66
[2023-01-07] MEDS: ATORVASTATIN 20 MG TAB PEG SCH (00:33)
[2023-01-07] MEDS: carBAMazepine 200 MG/10 ML Ud ORAL Susp GT SCH ×3 (00:34→15:01)
[2023-01-07] MEDS: levETIRAcetam 500 MG/5ML ORAL SOLN UD GT SCH ×3 (00:34→15:01)
[2023-01-07] MEDS: cefTRIAXone 1GM/50ML D5W 50 ML IV SCH (00:35)
[2023-01-07] MEDS: LINEZOLID 600MG/300ML 300 ML IV SCH ×2 (00:35→11:19)
[2023-01-07] MEDS: FREE WATER GT SCH ×6 (00:51→17:49)
[2023-01-07] MEDS: AZITHROMYCIN 500MG/ 250ML 250 ML IV SCH (01:25)
[2023-01-07] MEDS: Jevity 1.2 Cal/Fiber 1 Liter GT SCH (03:12)
[2023-01-07 05:00] VITALS: BP 133/61
[2023-01-07] MEDS: LEVOTHYROXINE SODIUM 88 MCG TAB PO SCH (07:53)
[2023-01-07 08:59] VITALS: BP 146/83
[2023-01-07] MEDS: CLOPIDOGREL BISULFATE 75 MG TAB PEG SCH (11:19)
[2023-01-07] MEDS: PANTOPRAZOLE 40 MG/10 ML VIAL INJ IV SCH (11:19)
[2023-01-07 13:00] VITALS: BP 113/74
[2023-01-07 17:00] VITALS: BP 105/76
[2023-01-07 22:00] VITALS: BP 124/58
[2023-01-08] MEDS: cefTRIAXone 1GM/50ML D5W 50 ML IV SCH ×2 (00:42→21:12)
[2023-01-08] MEDS: FREE WATER GT SCH ×7 (00:54→21:14)
[2023-01-08] MEDS: levETIRAcetam 500 MG/5ML ORAL SOLN UD GT SCH ×4 (00:55→21:13)
[2023-01-08] MEDS: carBAMazepine 200 MG/10 ML Ud ORAL Susp GT SCH ×4 (00:56→21:13)
[2023-01-08] MEDS: LINEZOLID 600MG/300ML 300 ML IV SCH ×2 (00:56→10:04)
[2023-01-08] MEDS: ATORVASTATIN 20 MG TAB PEG SCH ×2 (01:06→21:12)
[2023-01-08] MEDS: AZITHROMYCIN 500MG/ 250ML 250 ML IV SCH ×2 (01:24→22:14)
[2023-01-08] MEDS: Jevity 1.2 Cal/Fiber 1 Liter GT SCH (02:43)
[2023-01-08 05:00] VITALS: BP 116/72
[2023-01-08] MEDS: LEVOTHYROXINE SODIUM 88 MCG TAB PO SCH (08:32)
[2023-01-08 09:00] VITALS: BP 119/67
[2023-01-08] MEDS: CLOPIDOGREL BISULFATE 75 MG TAB PEG SCH (10:04)
[2023-01-08] MEDS: PANTOPRAZOLE 40 MG/10 ML VIAL INJ IV SCH (10:04)
[2023-01-08 13:03] VITALS: BP 114/53
[2023-01-08 17:00] VITALS: BP 130/65
[2023-01-08 22:00] VITALS: BP 124/53
[2023-01-09] MEDS: LINEZOLID 600MG/300ML 300 ML IV SCH ×3 (00:29→21:16)
[2023-01-09] MEDS: MORPHINE SULFATE INJ 2 MG/ml SYRG IV PRN ×2 (01:00→06:10)
[2023-01-09] MEDS: FREE WATER GT SCH ×6 (02:00→21:21)
[2023-01-09 05:00] VITALS: BP 118/72
[2023-01-09] MEDS: levETIRAcetam 500 MG/5ML ORAL SOLN UD GT SCH ×3 (06:10→21:21)
[2023-01-09] MEDS: carBAMazepine 200 MG/10 ML Ud ORAL Susp GT SCH ×3 (06:10→21:22)
[2023-01-09] MEDS: Jevity 1.2 Cal/Fiber 1 Liter GT SCH (06:10)
[2023-01-09] MEDS: LEVOTHYROXINE SODIUM 88 MCG TAB PO SCH (06:10)
[2023-01-09 09:00] VITALS: BP 118/44
[2023-01-09] MEDS: PANTOPRAZOLE 40 MG/10 ML VIAL INJ IV SCH (10:46)
[2023-01-09] MEDS: CLOPIDOGREL BISULFATE 75 MG TAB PEG SCH (10:46)
[2023-01-09 13:00] VITALS: BP 132/66
[2023-01-09 17:01] VITALS: BP 124/65
[2023-01-09] MEDS: cefTRIAXone 1GM/50ML D5W 50 ML IV SCH (20:10)
[2023-01-09] MEDS: ATORVASTATIN 20 MG TAB PEG SCH (21:16)
[2023-01-09 22:00] VITALS: BP 131/70
[2023-01-09] MEDS: AZITHROMYCIN 500MG/ 250ML 250 ML IV SCH (23:03)
[2023-01-10] MEDS: FREE WATER GT SCH ×6 (02:00→21:16)
[2023-01-10 05:00] VITALS: BP 103/65
[2023-01-10] MEDS: levETIRAcetam 500 MG/5ML ORAL SOLN UD GT SCH ×3 (05:44→21:16)
[2023-01-10] MEDS: Jevity 1.2 Cal/Fiber 1 Liter GT SCH (05:44)
[2023-01-10] MEDS: LEVOTHYROXINE SODIUM 88 MCG TAB PO SCH (05:44)
[2023-01-10] MEDS: carBAMazepine 200 MG/10 ML Ud ORAL Susp GT SCH ×3 (05:44→21:16)
[2023-01-10] MEDS: PANTOPRAZOLE 40 MG/10 ML VIAL INJ IV SCH ×2 (08:52→10:46)
[2023-01-10 09:00] VITALS: BP 125/61
[2023-01-10] MEDS: LINEZOLID 600MG/300ML 300 ML IV SCH ×2 (10:45→22:29)
[2023-01-10] MEDS: CLOPIDOGREL BISULFATE 75 MG TAB PEG SCH (10:46)
[2023-01-10 12:05] LABS: Basophils # (auto) 0.1 10 ^3/uL (0-0.2); Basophils % (auto) 1.2 % (0.0-2.0); Eosinophils # (auto) 0.3 10 ^3/uL (0-0.8); Eosinophils % (auto) 3.7 % (0.0-7.0); Hematocrit 31.5 % (41.0-53.0); Hemoglobin 10.1 g/dL (13.5-17.5); Lymphocytes # (auto) 1.2 10 ^3/uL (0.4-5.4); Lymphocytes % (auto) 16.5 % (10.0-50.0); Mean Corpuscular Hemoglobin 30.6 pg (28.0-32.0); Mean Corpuscular Hgb Conc. 32.2 g/dL (32.0-36.0); Mean Corpuscular Volume 95.1 fL (80.0-100.0); Monocytes # (auto) 0.8 10 ^3/uL (0-1.3); Monocytes % (auto) 10.7 % (0.0-12.0); Neutrophils % (auto) 67.9 % (37.0-80.0); Nucleated Red Blood Cells % 0.1 %; Red Blood Cells 3.31 10^6/uL (4.5-5.90); Red Cell Distribution Width 14.5 % (11.8-14.3); White Blood Cell 7.4 10^3/uL (4.4-10.8)
[2023-01-10 12:26] LABS: BUN/Creatinine Ratio 12.2 (10.0-20.0); Calcium 8.9 mg/dL (8.5-10.1); Potassium 4.3 mmol/L (3.5-5.1)
[2023-01-10 13:00] VITALS: BP 113/72
[2023-01-10] MEDS: OXYCODONE W/ ACETAMINOPHEN 5/325MG TABLET PO PRN (16:54)
[2023-01-10] MEDS: CARBIDOPA W LEVODOPA 25/250mg TABLET PO SCH ×2 (16:55→21:18)
[2023-01-10 17:00] VITALS: BP 133/72
[2023-01-10] MEDS: cefTRIAXone 1GM/50ML D5W 50 ML IV SCH (21:08)
[2023-01-10] MEDS: ATORVASTATIN 20 MG TAB PEG SCH (21:16)
[2023-01-10 22:00] VITALS: BP 147/94
[2023-01-10] MEDS: AZITHROMYCIN 500MG/ 250ML 250 ML IV SCH (23:57)
[2023-01-11] MEDS: FREE WATER GT SCH ×4 (02:00→18:51)
[2023-01-11 05:00] VITALS: BP 110/51
[2023-01-11] MEDS: CARBIDOPA W LEVODOPA 25/250mg TABLET PO SCH ×2 (06:14→18:50)
[2023-01-11] MEDS: carBAMazepine 200 MG/10 ML Ud ORAL Susp GT SCH ×2 (06:15→18:51)
[2023-01-11] MEDS: levETIRAcetam 500 MG/5ML ORAL SOLN UD GT SCH ×2 (06:15→18:52)
[2023-01-11] MEDS: LEVOTHYROXINE SODIUM 88 MCG TAB PO SCH (06:15)
[2023-01-11] MEDS: LINEZOLID 600MG/300ML 300 ML IV SCH (07:45)
[2023-01-11] MEDS: OXYCODONE W/ ACETAMINOPHEN 5/325MG TABLET PO PRN (07:46)
[2023-01-11] MEDS: CLOPIDOGREL BISULFATE 75 MG TAB PEG SCH (08:00)
[2023-01-11 09:00] VITALS: BP 111/64
[2023-01-11 13:00] VITALS: BP 118/77
[2023-01-11 17:00] VITALS: BP 122/62
== END 2023-01-11 19:40 | disposition home health service (06) | DRG 871 ==
LOC: ER 18:38 → OVERFLOW 12-29 05:17 → EAST 12-30 16:00
PROVIDERS: ADMIT Nurse Practitioner; ATTEND Nurse Practitioner Acute Care
DX: A41.9 Sepsis, unspecified organism (principal); G93.41 Metabolic encephalopathy; J96.01 Acute respiratory failure with hypoxia; N17.0 Acute kidney failure with tubular necrosis; J15.6 Pneumonia due to other Gram-negative bacteria; E87.1 Hypo-osmolality and hyponatremia; E11.9 Type 2 diabetes mellitus without complications; I10 Essential (primary) hypertension; E03.9 Hypothyroidism, unspecified; E78.5 Hyperlipidemia, unspecified; F20.9 Schizophrenia, unspecified; F31.9 Bipolar disorder, unspecified; G20 Parkinson's disease; G40.909 Epilepsy, unspecified, not intractable, without status epilepticus; I25.10 Atherosclerotic heart disease of native coronary artery without angina pectoris; R13.10 Dysphagia, unspecified; Z88.8 Allergy status to other drugs, medicaments and biological substances; Z86.73 Personal history of transient ischemic attack (TIA), and cerebral infarction without residual deficits; Z98.61 Coronary angioplasty status; Z82.49 Family history of ischemic heart disease and other diseases of the circulatory system; I25.2 Old myocardial infarction; Z82.0 Family history of epilepsy and other diseases of the nervous system; Z90.49 Acquired absence of other specified parts of digestive tract; Z80.0 Family history of malignant neoplasm of digestive organs; Z83.42 Family history of familial hypercholesterolemia; Z79.899 Other long term (current) drug therapy; Z79.02 Long term (current) use of antithrombotics/antiplatelets
CPT/HCPCS: 36415; 36600; 70450; 70551; 71045; 71250; 72148; 74018; 74176; 80048; 80053; 80178; 81001; 82140; 82306; 82607; 82805; 82962; 83605; 83690; 84443; 84484; 85025; 87040; 87086; 93005; 93306; 95819; 96361; 96365; 96368; 97110; 97116; 97163; 97530; C9113; G0378; J0696; J7042; J7060

== ENCOUNTER 2023-06-17 14:54 | Inpatient (IN) | payer MEDICARE, MEDICAID ==
[~2023-06-17] VITALS: Ht 175.3 cm; Wt 79.6 kg
[~2023-06-17 14:54] MED LIST changes: +DOXY-346 GT
[2023-06-17] MEDS ORDERED: ACCU-CHEK COMFORT CURVE STRIP VI ONE (15:45)
[2023-06-17 16:30] LABS: Basophils # (auto) 0.1 10 ^3/uL (0-0.2); Basophils % (auto) 0.9 % (0.0-2.0); Eosinophils # (auto) 0.3 10 ^3/uL (0-0.8); Eosinophils % (auto) 3.8 % (0.0-7.0); Hematocrit 37.3 % (41.0-53.0); Hemoglobin 12.2 g/dL (13.5-17.5); Lymphocytes # (auto) 1.5 10 ^3/uL (0.4-5.4); Lymphocytes % (auto) 19.8 % (10.0-50.0); Mean Corpuscular Hemoglobin 30.7 pg (28.0-32.0); Mean Corpuscular Hgb Conc. 32.6 g/dL (32.0-36.0); Mean Corpuscular Volume 94.4 fL (80.0-100.0); Monocytes # (auto) 0.7 10 ^3/uL (0-1.3); Monocytes % (auto) 8.9 % (0.0-12.0); Neutrophils # (auto) 4.9 10 ^3/uL (1.6-8.6); Neutrophils % (auto) 66.6 % (37.0-80.0); Nucleated Red Blood Cells % 0.1 %; Red Blood Cells 3.96 10^6/uL (4.5-5.90); Red Cell Distribution Width 14.8 % (11.8-14.3); White Blood Cell 7.3 10^3/uL (4.4-10.8)
[2023-06-17] MEDS ORDERED: SODIUM CHLORIDE 0.9% 1,000 ML IV ONE (16:45)
[2023-06-17 16:52] LABS: Alanine Aminotransferase 14 U/L (7-40); Albumin 4.6 g/dL (3.2-4.8); Alkaline Phosphatase 105 U/L (46-116); Anion Gap 5 (5-15); Aspartate Aminotransferase 54 U/L (13-40); BUN/Creatinine Ratio 12.7 (10.0-20.0); Blood Urea Nitrogen 19 mg/dL (9-23); Calcium 9.7 mg/dL (8.7-10.4); Carbon Dioxide 25 mmol/L (20-30); Chloride 106 mmol/L (98-107); Glucose 119 mg/dL (74-106); Potassium 4.5 mmol/L (3.5-5.1); Sodium 136 mmol/L (136-145)
[2023-06-17 16:53] LABS: Bilirubin, Total 0.3 mg/dL (0.2-1.0); Total Protein 7.5 g/dL (5.7-8.2)
[2023-06-17] MEDS ORDERED: HYDROcodone-ACET 5/325MG TAB PO PRN (20:30)
[2023-06-17] MEDS ORDERED: ACETAMINOPHEN 325 MG TAB PO PRN (20:30)
[2023-06-17] MEDS ORDERED: DEXTROSE (50%) 50ML SYRG IV PRN (20:30)
[2023-06-17] MEDS ORDERED: ONDANSETRON HCL 4 MG/2 ML VIAL IV PRN (20:30)
[2023-06-17] MEDS ORDERED: DOCUSATE SOD 100 MG CAP PO PRN (20:30)
[2023-06-17 20:45] VITALS: PULSE 70; RESP 14; O2SAT 96
[2023-06-17] MEDS ORDERED: ATORVASTATIN 20 MG TAB PO SCH (22:00)
[2023-06-17] MEDS ORDERED: CARBIDOPA W LEVODOPA 25/100mg TABLET PO SCH (22:00)
[2023-06-17] MEDS: SODIUM CHLORIDE 0.9% 1,000 ML IV SCH (22:37)
[2023-06-17] MEDS: ACCU-CHEK COMFORT CURVE STRIP VI SCH (22:55)
[2023-06-17] MEDS: InsuLIN REG 1unit/0.01ml Soln (100units/ml) SC SCH (22:56)
[2023-06-17] MEDS ORDERED: ATORVASTATIN 20 MG TAB GT SCH (23:15)
[2023-06-17] MEDS ORDERED: HYDROcodone-ACET 5/325MG TAB GT PRN (23:15)
[2023-06-17] MEDS: CARBIDOPA W LEVODOPA 25/100mg TABLET GT SCH (23:37)
[2023-06-17] MEDS: levETIRAcetam 500 MG TAB GT SCH (23:46)
[2023-06-18] VITALS (8 sets, daily range): BP systolic 109–123; BP diastolic 51–65; PULSE 59–64; RESP 14–20; TEMP 98.2–99.1; O2SAT 92–97
[2023-06-18] MEDS ORDERED: NITROGLYCERIN 0.4 MG SL TAB SL PRN
[2023-06-18] MEDS ORDERED: MORPHINE SULFATE INJ 2 MG/ml SYRG IV PRN
[2023-06-18 00:30] LABS: Urine Bacteria FEW /hpf (None Seen); Urine Blood Negative /uL (Negative); Urine Clarity Clear (Clear); Urine Color Yellow (Yellow); Urine Hyaline Cast FEW /lpf (0 - 2); Urine Protein, UAD Negative (Negative); Urine Specific Gravity 1.011 (1.001-1.035); Urine Urobilinogen Normal (Negative); Urine WBC 2 /hpf (0 - 3)
[2023-06-18] MEDS: levETIRAcetam 500 MG TAB GT SCH ×2 (06:23→13:17)
[2023-06-18] MEDS: CARBIDOPA W LEVODOPA 25/100mg TABLET GT SCH ×2 (06:23→13:17)
[2023-06-18] MEDS: ACCU-CHEK COMFORT CURVE STRIP VI SCH ×4 (07:00→21:58)
[2023-06-18] MEDS ORDERED: LEVOTHYROXINE SODIUM 100 MCG TAB GT SCH (07:00)
[2023-06-18] MEDS ORDERED: LEVOTHYROXINE SODIUM 100 MCG TAB PO SCH (07:00)
[2023-06-18] MEDS: InsuLIN REG 1unit/0.01ml Soln (100units/ml) SC SCH ×4 (07:00→21:58)
[2023-06-18 07:33] LABS: Alanine Aminotransferase 15 U/L (7-40); Albumin 3.8 g/dL (3.2-4.8); Alkaline Phosphatase 87 U/L (46-116); Anion Gap 5 (5-15); Aspartate Aminotransferase 41 U/L (13-40); BUN/Creatinine Ratio 14.5 (10.0-20.0); Bilirubin, Total 0.3 mg/dL (0.2-1.0); Blood Urea Nitrogen 19 mg/dL (9-23); Calcium 9.2 mg/dL (8.5-10.1); Carbon Dioxide 26 mmol/L (20-30); Chloride 107 mmol/L (98-107); Glucose 95 mg/dL (74-106); Potassium 3.9 mmol/L (3.5-5.1); Sodium 138 mmol/L (136-145); Total Protein 6.1 g/dL (5.7-8.2)
[2023-06-18 07:36] LABS: Basophils # (auto) 0.1 10 ^3/uL (0-0.2); Eosinophils # (auto) 0.2 10 ^3/uL (0-0.8); Eosinophils % (auto) 2.9 % (0.0-7.0); Hematocrit 31.3 % (41.0-53.0); Hemoglobin 10.2 g/dL (13.5-17.5); Lymphocytes # (auto) 1.2 10 ^3/uL (0.4-5.4); Lymphocytes % (auto) 20.8 % (10.0-50.0); Mean Corpuscular Hemoglobin 30.5 pg (28.0-32.0); Mean Corpuscular Hgb Conc. 32.6 g/dL (32.0-36.0); Mean Corpuscular Volume 93.4 fL (80.0-100.0); Monocytes # (auto) 0.7 10 ^3/uL (0-1.3); Monocytes % (auto) 11.3 % (0.0-12.0); Neutrophils # (auto) 3.8 10 ^3/uL (1.6-8.6); Nucleated Red Blood Cells % 0.1 %; Red Blood Cells 3.35 10^6/uL (4.5-5.90); Red Cell Distribution Width 14.6 % (11.8-14.3); White Blood Cell 5.9 10^3/uL (4.4-10.8)
[2023-06-18] MEDS ORDERED: LURA40TA2 PO (09:41)
[2023-06-18] MEDS ORDERED: HYDR2TAB3 PO (09:41)
[2023-06-18] MEDS ORDERED: CLOP75TA28 PO (09:41)
[2023-06-18] MEDS ORDERED: LUBI24CA6 PO (09:41)
[2023-06-18] MEDS ORDERED: ARTISOL13 EACHEYE (09:41)
[2023-06-18] MEDS ORDERED: PANT1INJ3 PO (09:41)
[2023-06-18] MEDS ORDERED: VALB60CA PO (09:41)
[2023-06-18] MEDS ORDERED: CYA100I PO (09:41)
[2023-06-18] MEDS ORDERED: POLYSOL2 EACHEYE (09:41)
[2023-06-18] MEDS ORDERED: DOCU-94 PO (09:41)
[2023-06-18] MEDS ORDERED: CARB25TA77 PO (09:41)
[2023-06-18] MEDS ORDERED: CHOL20007 PO (09:41)
[2023-06-18] MEDS ORDERED: LEVO88TA4 PO (09:41)
[2023-06-18] MEDS ORDERED: CARB100C3 PO (09:41)
[2023-06-18] MEDS ORDERED: DULO20CA PO (09:41)
[2023-06-18] MEDS ORDERED: KETO2CRE4 TOP (09:41)
[2023-06-18] MEDS ORDERED: FLUO-381 TOP (09:41)
[2023-06-18] MEDS ORDERED: NITR0.4S29 SL (09:41)
[2023-06-18] MEDS ORDERED: HYD25TP TOP (09:41)
[2023-06-18] MEDS ORDERED: KEP500T PO (09:41)
[2023-06-18] MEDS ORDERED: POLY335015 PO (09:41)
[2023-06-18] MEDS ORDERED: LITH300C3 PO (09:41)
[2023-06-18] MEDS ORDERED: LACT10SO3 PO (09:41)
[2023-06-18] MEDS ORDERED: ATOR20TA50 PO (09:41)
[2023-06-18] MEDS ORDERED: CLOPIDOGREL BISULFATE 75 MG TAB PO SCH (10:00)
[2023-06-18] MEDS ORDERED: CLOPIDOGREL BISULFATE 75 MG TAB GT SCH (10:00)
[2023-06-18] MEDS: SODIUM CHLORIDE 0.9% 1,000 ML IV SCH (13:10)
[2023-06-18] MEDS: LITHIUM CARBONATE 300 MG TAB PO SCH (17:29)
[2023-06-18] MEDS: HYDROcodone-ACET 5/325MG TAB PO PRN (17:29)
[2023-06-18] MEDS ORDERED: HALOPERIDOL LACTATE 5 MG/ML INJ VIAL ONE (17:54)
[2023-06-18] MEDS: ATORVASTATIN 20 MG TAB PO SCH (20:34)
[2023-06-18] MEDS: CARBIDOPA W LEVODOPA 25/100mg TABLET PO SCH (20:35)
[2023-06-18] MEDS: levETIRAcetam 500 MG TAB PO SCH (20:36)
[2023-06-18] MEDS: INGREZZA PO SCH (20:38)
[2023-06-18] MEDS: DULoxetine HCL 30 MG CAP PO SCH (20:39)
[2023-06-19] VITALS (7 sets, daily range): BP systolic 121–159; BP diastolic 50–69; PULSE 61–83; RESP 16–20; TEMP 98.1–98.9; O2SAT 93–99
[2023-06-19] MEDS: CARBIDOPA W LEVODOPA 25/100mg TABLET PO SCH ×3 (05:42→22:07)
[2023-06-19] MEDS: LEVOTHYROXINE SODIUM 100 MCG TAB PO SCH (05:43)
[2023-06-19] MEDS: DULoxetine HCL 30 MG CAP PO SCH ×3 (05:43→22:04)
[2023-06-19] MEDS: levETIRAcetam 500 MG TAB PO SCH ×3 (05:44→22:05)
[2023-06-19] MEDS: SODIUM CHLORIDE 0.9% 1,000 ML IV SCH (05:44)
[2023-06-19] MEDS: InsuLIN REG 1unit/0.01ml Soln (100units/ml) SC SCH ×4 (05:50→22:00)
[2023-06-19] MEDS: ACCU-CHEK COMFORT CURVE STRIP VI SCH ×4 (05:50→22:09)
[2023-06-19] MEDS: CLOPIDOGREL BISULFATE 75 MG TAB PO SCH (09:04)
[2023-06-19] MEDS: PANTOPRAZOLE 40 MG TAB PO SCH (09:04)
[2023-06-19] MEDS: LATUDA 60 MG PO SCH (09:05)
[2023-06-19] MEDS: carBAMazepine 200 MG TAB PO SCH (09:05)
[2023-06-19] MEDS: HYDROcodone-ACET 5/325MG TAB PO PRN (17:52)
[2023-06-19] MEDS: LITHIUM CARBONATE 300 MG TAB PO SCH (17:52)
[2023-06-19] MEDS: ATORVASTATIN 20 MG TAB PO SCH (22:06)
[2023-06-19] MEDS: INGREZZA PO SCH (22:06)
[2023-06-20] VITALS (7 sets, daily range): BP systolic 127–149; BP diastolic 61–70; PULSE 63–84; RESP 16–22; TEMP 36.7; O2SAT 93–98
[2023-06-20] MEDS: SODIUM CHLORIDE 0.9% 1,000 ML IV SCH ×2 (00:29→16:35)
[2023-06-20 05:05] LABS: Chloride 113 mmol/L (98-107); Potassium 4.3 mmol/L (3.5-5.1); Sodium 142 mmol/L (136-145)
[2023-06-20 05:06] LABS: Anion Gap 6 (5-15); Calcium 9.1 mg/dL (8.7-10.4); Carbon Dioxide 23 mmol/L (20-30)
[2023-06-20 05:11] LABS: BUN/Creatinine Ratio 11.8 (10.0-20.0); Blood Urea Nitrogen 13 mg/dL (9-23); Glucose 81 mg/dL (74-106)
[2023-06-20] MEDS: CARBIDOPA W LEVODOPA 25/100mg TABLET PO SCH ×4 (05:16→23:00)
[2023-06-20] MEDS: DULoxetine HCL 30 MG CAP PO SCH ×3 (05:17→22:59)
[2023-06-20] MEDS: LEVOTHYROXINE SODIUM 100 MCG TAB PO SCH (05:46)
[2023-06-20] MEDS: ACCU-CHEK COMFORT CURVE STRIP VI SCH ×4 (05:46→22:00)
[2023-06-20] MEDS: levETIRAcetam 500 MG TAB PO SCH ×3 (05:46→22:58)
[2023-06-20] MEDS: InsuLIN REG 1unit/0.01ml Soln (100units/ml) SC SCH ×4 (05:53→22:00)
[2023-06-20] MEDS ORDERED: GASTROGRAFIN 120 ML SOL ONE (09:05)
[2023-06-20] MEDS: LATUDA 60 MG PO SCH (10:00)
[2023-06-20] MEDS: PANTOPRAZOLE 40 MG TAB PO SCH (12:04)
[2023-06-20] MEDS: carBAMazepine 200 MG TAB PO SCH (12:04)
[2023-06-20] MEDS: CLOPIDOGREL BISULFATE 75 MG TAB PO SCH (12:04)
[2023-06-20] MEDS: LITHIUM CARBONATE 300 MG TAB PO SCH (17:32)
[2023-06-20] MEDS: ATORVASTATIN 20 MG TAB PO SCH (22:59)
[2023-06-20] MEDS: INGREZZA PO SCH (23:01)
[2023-06-21] VITALS (7 sets, daily range): BP systolic 144–162; BP diastolic 70–77; PULSE 63–85; RESP 18–22; TEMP 98.1–99.7; O2SAT 92–95
[2023-06-21 05:38] LABS: Basophils # (auto) 0 10 ^3/uL (0-0.2); Basophils % (auto) 0.6 % (0.0-2.0); Eosinophils # (auto) 0 10 ^3/uL (0-0.8); Eosinophils % (auto) 0.7 % (0.0-7.0); Hemoglobin 10.8 g/dL (13.5-17.5); Lymphocytes # (auto) 0.4 10 ^3/uL (0.4-5.4); Lymphocytes % (auto) 7.5 % (10.0-50.0); Mean Corpuscular Hemoglobin 30.8 pg (28.0-32.0); Mean Corpuscular Hgb Conc. 32.7 g/dL (32.0-36.0); Mean Corpuscular Volume 94.3 fL (80.0-100.0); Monocytes # (auto) 0.9 10 ^3/uL (0-1.3); Monocytes % (auto) 16.3 % (0.0-12.0); Neutrophils # (auto) 4.3 10 ^3/uL (1.6-8.6); Neutrophils % (auto) 74.9 % (37.0-80.0); Nucleated Red Blood Cells % 0.1 %; White Blood Cell 5.7 10^3/uL (4.4-10.8)
[2023-06-21] MEDS: CARBIDOPA W LEVODOPA 25/100mg TABLET PO SCH ×3 (06:24→22:43)
[2023-06-21] MEDS: DULoxetine HCL 30 MG CAP PO SCH ×3 (06:24→22:42)
[2023-06-21] MEDS: levETIRAcetam 500 MG TAB PO SCH ×3 (06:25→22:42)
[2023-06-21] MEDS: ACCU-CHEK COMFORT CURVE STRIP VI SCH ×3 (06:26→17:00)
[2023-06-21] MEDS: InsuLIN REG 1unit/0.01ml Soln (100units/ml) SC SCH ×4 (06:26→22:00)
[2023-06-21] MEDS: LEVOTHYROXINE SODIUM 100 MCG TAB PO SCH (06:26)
[2023-06-21] MEDS: SODIUM CHLORIDE 0.9% 1,000 ML IV SCH ×2 (07:50→09:49)
[2023-06-21] MEDS: CLOPIDOGREL BISULFATE 75 MG TAB PO SCH (09:42)
[2023-06-21] MEDS: PANTOPRAZOLE 40 MG TAB PO SCH (09:42)
[2023-06-21] MEDS: carBAMazepine 200 MG TAB PO SCH (09:42)
[2023-06-21] MEDS: LATUDA 60 MG PO SCH (09:51)
[2023-06-21 16:32] LABS: COVID19 ANTIGEN SOFIA FIA POSITIVE (NEGATIVE)
[2023-06-21] MEDS: LITHIUM CARBONATE 300 MG TAB PO SCH (18:18)
[2023-06-21] MEDS: INGREZZA PO SCH (22:42)
[2023-06-21] MEDS: ATORVASTATIN 20 MG TAB PO SCH (22:43)
[2023-06-22] MEDS: ACCU-CHEK COMFORT CURVE STRIP VI SCH ×4 (02:58→17:43)
[2023-06-22 05:00] VITALS: BP 140/69; PULSE 80; RESP 21; TEMP 98.4; O2SAT 96
[2023-06-22 06:33] LABS: Hematocrit 34.6 % (41.0-53.0); Hemoglobin 11.2 g/dL (13.5-17.5); Mean Corpuscular Hemoglobin 30.5 pg (28.0-32.0); Mean Corpuscular Hgb Conc. 32.5 g/dL (32.0-36.0); Mean Corpuscular Volume 93.6 fL (80.0-100.0); Red Blood Cells 3.69 10^6/uL (4.5-5.90); Red Cell Distribution Width 15.1 % (11.8-14.3); White Blood Cell 4.5 10^3/uL (4.4-10.8)
[2023-06-22] MEDS: levETIRAcetam 500 MG TAB PO SCH ×3 (06:38→23:42)
[2023-06-22] MEDS: LEVOTHYROXINE SODIUM 100 MCG TAB PO SCH (06:39)
[2023-06-22] MEDS: CARBIDOPA W LEVODOPA 25/100mg TABLET PO SCH ×3 (06:39→23:42)
[2023-06-22] MEDS: DULoxetine HCL 30 MG CAP PO SCH ×3 (06:39→23:49)
[2023-06-22] MEDS: InsuLIN REG 1unit/0.01ml Soln (100units/ml) SC SCH ×4 (06:56→22:00)
[2023-06-22 07:13] LABS: Band Neutrophils % (manual) 0; Basophils % (manual) 0 (0.0-2.0); Blast Cells 0; Metamyelocytes % 0; Myelocytes % 0; Promyelocytes % 0; Reactive Lymphocytes 0
[2023-06-22 09:00] VITALS: BP 146/67; PULSE 77; RESP 19; TEMP 99; O2SAT 91
[2023-06-22] MEDS: CLOPIDOGREL BISULFATE 75 MG TAB PO SCH (09:05)
[2023-06-22] MEDS: MICAFUNGIN SODIUM 100 MG in SODIUM CHL 0.9% 100 ML IV SCH (09:05)
[2023-06-22] MEDS: PANTOPRAZOLE 40 MG TAB PO SCH (09:05)
[2023-06-22] MEDS: carBAMazepine 200 MG TAB PO SCH (09:05)
[2023-06-22] MEDS: LATUDA 60 MG PO SCH (09:06)
[2023-06-22 10:04] LABS: Eosinophils % (manual) 1 (0-7); Lymphocytes % (manual) 18 (10.0-50.0); Monocytes % (manual) 14 (0-12); Platelet Estimate Adequate
[2023-06-22] MEDS ORDERED: DexAMETHasone SOD PHOS 10MG/1ML VIAL INJ IV ONE (12:00)
[2023-06-22] MEDS ORDERED: REMDESIVIR PER PHARMACY 0 ML IV SCH (12:00)
[2023-06-22 13:00] VITALS: BP 152/64; PULSE 79; RESP 19; TEMP 99.2; O2SAT 90
[2023-06-22] MEDS: CHOLECALCIFEROL (VITD3) 2,000 UNIT CAP/TAB PO SCH (14:03)
[2023-06-22] MEDS: ZINC SULFATE 220mg CAP or TAB PO SCH (14:03)
[2023-06-22] MEDS: ASCORBIC ACID 500 MG TAB PO SCH (14:08)
[2023-06-22] MEDS ORDERED: REMDESIVIR 200 MG in NS 210ml LOADING DOSE ADULT IV ONE (15:00)
[2023-06-22 17:00] VITALS: BP 151/75; PULSE 93; RESP 19; TEMP 100.5; O2SAT 99
[2023-06-22] MEDS: SODIUM CHLORIDE 0.9% 1,000 ML IV SCH (17:42)
[2023-06-22] MEDS: LITHIUM CARBONATE 300 MG TAB PO SCH (17:43)
[2023-06-22 20:00] VITALS: PULSE 93; O2SAT 92
[2023-06-22 22:00] VITALS: BP 159/81; PULSE 92; RESP 20; TEMP 99.9; O2SAT 92
[2023-06-22] MEDS: ATORVASTATIN 20 MG TAB PO SCH (23:43)
[2023-06-22] MEDS: INGREZZA PO SCH (23:53)
[2023-06-23] MEDS: ACCU-CHEK COMFORT CURVE STRIP VI SCH ×5 (02:17→21:09)
[2023-06-23 04:44] VITALS: BP 169/78; PULSE 85; RESP 14; TEMP 97.9; O2SAT 89
[2023-06-23] MEDS: InsuLIN REG 1unit/0.01ml Soln (100units/ml) SC SCH ×4 (07:00→21:09)
[2023-06-23] MEDS: CARBIDOPA W LEVODOPA 25/100mg TABLET PO SCH ×3 (07:02→21:08)
[2023-06-23] MEDS: DULoxetine HCL 30 MG CAP PO SCH ×3 (07:02→21:08)
[2023-06-23] MEDS: LEVOTHYROXINE SODIUM 100 MCG TAB PO SCH (07:02)
[2023-06-23] MEDS: levETIRAcetam 500 MG TAB PO SCH ×3 (07:02→21:08)
[2023-06-23 07:18] LABS: Basophils # (auto) 0 10 ^3/uL (0-0.2); Basophils % (auto) 0.3 % (0.0-2.0); Eosinophils # (auto) 0 10 ^3/uL (0-0.8); Hematocrit 36.8 % (41.0-53.0); Hemoglobin 12.1 g/dL (13.5-17.5); Lymphocytes # (auto) 0.8 10 ^3/uL (0.4-5.4); Lymphocytes % (auto) 10.8 % (10.0-50.0); Mean Corpuscular Hemoglobin 30.9 pg (28.0-32.0); Mean Corpuscular Hgb Conc. 32.8 g/dL (32.0-36.0); Mean Corpuscular Volume 94.1 fL (80.0-100.0); Monocytes % (auto) 14.2 % (0.0-12.0); Neutrophils # (auto) 5.4 10 ^3/uL (1.6-8.6); Neutrophils % (auto) 74.7 % (37.0-80.0); Nucleated Red Blood Cells % 0.1 %; Red Blood Cells 3.91 10^6/uL (4.5-5.90); Red Cell Distribution Width 15.3 % (11.8-14.3); White Blood Cell 7.3 10^3/uL (4.4-10.8)
[2023-06-23 07:41] LABS: Alanine Aminotransferase 47 U/L (7-40); Albumin 4.2 g/dL (3.2-4.8); Alkaline Phosphatase 74 U/L (46-116); Anion Gap 9 (5-15); Aspartate Aminotransferase 112 U/L (13-40); BUN/Creatinine Ratio 16.7 (10.0-20.0); Blood Urea Nitrogen 20 mg/dL (9-23); Calcium 9.5 mg/dL (8.5-10.1); Carbon Dioxide 21 mmol/L (20-30); Chloride 118 mmol/L (98-107); Glucose 89 mg/dL (74-106); Potassium 4.2 mmol/L (3.5-5.1)
[2023-06-23 07:42] LABS: Bilirubin, Total < 0.2 mg/dL (0.2-1.0); Total Protein 6.8 g/dL (5.7-8.2)
[2023-06-23 07:49] LABS: Sodium 148 mmol/L (136-145)
[2023-06-23 08:00] VITALS: PULSE 84
[2023-06-23] MEDS: DexAMETHasone SOD PHOS 10MG/1ML VIAL INJ IV SCH (08:57)
[2023-06-23] MEDS: ZINC SULFATE 220mg CAP or TAB PO SCH (08:59)
[2023-06-23] MEDS: carBAMazepine 200 MG TAB PO SCH (08:59)
[2023-06-23] MEDS: CLOPIDOGREL BISULFATE 75 MG TAB PO SCH (08:59)
[2023-06-23] MEDS: ASCORBIC ACID 500 MG TAB PO SCH (09:00)
[2023-06-23] MEDS: CHOLECALCIFEROL (VITD3) 2,000 UNIT CAP/TAB PO SCH (09:00)
[2023-06-23] MEDS: PANTOPRAZOLE 40 MG TAB PO SCH (09:00)
[2023-06-23] MEDS: LATUDA 60 MG PO SCH (09:01)
[2023-06-23] MEDS: MICAFUNGIN SODIUM 100 MG in SODIUM CHL 0.9% 100 ML IV SCH (09:03)
[2023-06-23] MEDS: SODIUM CHLORIDE 0.9% 1,000 ML IV SCH (09:50)
[2023-06-23] MEDS: FREE WATER GT SCH ×2 (12:00→18:00)
[2023-06-23] MEDS: ENSURE CLEAR Mixed Berry 8oz Carton GT SCH ×2 (12:00→18:00)
[2023-06-23] MEDS ORDERED: Glucerna 1.2 Cal 1Liter BOTTLE GT SCH (12:30)
[2023-06-23 13:00] VITALS: BP 147/77; PULSE 80; RESP 16; TEMP 98.8; O2SAT 98
[2023-06-23] MEDS: DOXYCYCLINE 100MG/250ML 250 ML IV SCH (13:25)
[2023-06-23] MEDS: REMDESIVIR 100mg 100 MG in SODIUM CHL 0.9% 230 ML IV SCH (16:19)
[2023-06-23 17:00] VITALS: BP 120/65; PULSE 65; RESP 16; TEMP 97.9; O2SAT 100
[2023-06-23] MEDS: LITHIUM CARBONATE 300 MG TAB PO SCH (18:00)
[2023-06-23 20:00] VITALS: PULSE 59
[2023-06-23] MEDS: ATORVASTATIN 20 MG TAB PO SCH (21:08)
[2023-06-23 22:00] VITALS: BP 144/68; PULSE 82; RESP 20; TEMP 98.9; O2SAT 94
[2023-06-24] VITALS (7 sets, daily range): BP systolic 126–146; BP diastolic 68–77; PULSE 66–80; RESP 16–20; TEMP 80.1–98.4; O2SAT 92–99
[2023-06-24] MEDS: SODIUM CHLORIDE 0.9% 1,000 ML IV SCH ×2 (02:30→21:13)
[2023-06-24] MEDS: DOXYCYCLINE 100MG/250ML 250 ML IV SCH (02:57)
[2023-06-24] MEDS: FREE WATER GT SCH ×4 (02:57→17:22)
[2023-06-24] MEDS: INGREZZA PO SCH ×2 (02:58→21:12)
[2023-06-24] MEDS: levETIRAcetam 500 MG TAB PO SCH ×3 (05:26→21:11)
[2023-06-24] MEDS: CARBIDOPA W LEVODOPA 25/100mg TABLET PO SCH ×3 (05:26→21:29)
[2023-06-24] MEDS: DULoxetine HCL 30 MG CAP PO SCH ×3 (05:26→21:12)
[2023-06-24] MEDS: InsuLIN REG 1unit/0.01ml Soln (100units/ml) SC SCH ×4 (06:21→21:31)
[2023-06-24] MEDS: ACCU-CHEK COMFORT CURVE STRIP VI SCH ×4 (06:21→21:30)
[2023-06-24 06:26] LABS: Basophils # (auto) 0 10 ^3/uL (0-0.2); Basophils % (auto) 0.2 % (0.0-2.0); Eosinophils # (auto) 0 10 ^3/uL (0-0.8); Eosinophils % (auto) 0.1 % (0.0-7.0); Hemoglobin 11.8 g/dL (13.5-17.5); Lymphocytes # (auto) 1.4 10 ^3/uL (0.4-5.4); Lymphocytes % (auto) 14.9 % (10.0-50.0); Mean Corpuscular Hemoglobin 30.7 pg (28.0-32.0); Mean Corpuscular Hgb Conc. 31.7 g/dL (32.0-36.0); Mean Corpuscular Volume 96.7 fL (80.0-100.0); Monocytes # (auto) 0.9 10 ^3/uL (0-1.3); Monocytes % (auto) 10.1 % (0.0-12.0); Neutrophils # (auto) 6.8 10 ^3/uL (1.6-8.6); Neutrophils % (auto) 74.7 % (37.0-80.0); Nucleated Red Blood Cells % 0.1 %; Red Blood Cells 3.83 10^6/uL (4.5-5.90); Red Cell Distribution Width 15.9 % (11.8-14.3); White Blood Cell 9.1 10^3/uL (4.4-10.8)
[2023-06-24 06:38] LABS: Alanine Aminotransferase 63 U/L (7-40); Alkaline Phosphatase 64 U/L (46-116); Anion Gap 8 (5-15); BUN/Creatinine Ratio 19.8 (10.0-20.0); Blood Urea Nitrogen 24 mg/dL (9-23); Calcium 9.4 mg/dL (8.7-10.4); Carbon Dioxide 23 mmol/L (20-30); Chloride 117 mmol/L (98-107); Glucose 107 mg/dL (74-106); Potassium 4.3 mmol/L (3.5-5.1); Sodium 148 mmol/L (136-145)
[2023-06-24 06:39] LABS: Albumin 3.8 g/dL (3.2-4.8); Aspartate Aminotransferase 82 U/L (13-40); Bilirubin, Total < 0.2 mg/dL (0.2-1.0); Total Protein 6.3 g/dL (5.7-8.2)
[2023-06-24] MEDS: LEVOTHYROXINE SODIUM 100 MCG TAB PO SCH (07:01)
[2023-06-24] MEDS: ENSURE CLEAR Mixed Berry 8oz Carton GT SCH ×3 (08:00→17:22)
[2023-06-24] MEDS: carBAMazepine 200 MG TAB PO SCH (09:09)
[2023-06-24] MEDS: DexAMETHasone SOD PHOS 10MG/1ML VIAL INJ IV SCH (09:09)
[2023-06-24] MEDS: ASCORBIC ACID 500 MG TAB PO SCH (09:09)
[2023-06-24] MEDS: ZINC SULFATE 220mg CAP or TAB PO SCH (09:09)
[2023-06-24] MEDS: PANTOPRAZOLE 40 MG TAB PO SCH (09:10)
[2023-06-24] MEDS: CLOPIDOGREL BISULFATE 75 MG TAB PO SCH (09:10)
[2023-06-24] MEDS: MICAFUNGIN SODIUM 100 MG in SODIUM CHL 0.9% 100 ML IV SCH (09:10)
[2023-06-24] MEDS: CHOLECALCIFEROL (VITD3) 2,000 UNIT CAP/TAB PO SCH (09:15)
[2023-06-24] MEDS: LATUDA 60 MG PO SCH (10:00)
[2023-06-24] MEDS: ENOXAPARIN SOD 40 MG/0.4 ML SYRINGE SC SCH (14:37)
[2023-06-24] MEDS: REMDESIVIR 100mg 100 MG in SODIUM CHL 0.9% 230 ML IV SCH (17:12)
[2023-06-24] MEDS: LITHIUM CARBONATE 300 MG TAB PO SCH (17:22)
[2023-06-24] MEDS: ATORVASTATIN 20 MG TAB PO SCH (21:11)
[2023-06-24] MEDS: HYDROcodone-ACET 5/325MG TAB PO PRN (21:30)
[2023-06-25] MEDS: FREE WATER GT SCH ×4 (00:27→17:31)
[2023-06-25 01:40] VITALS: BP 124/73; PULSE 59; RESP 18; O2SAT 100
[2023-06-25 05:00] VITALS: BP 137/74; PULSE 59; RESP 15; TEMP 97.9; O2SAT 100
[2023-06-25 05:45] LABS: Urine Bacteria NONE SEEN /hpf (None Seen); Urine Blood Negative /uL (Negative); Urine Clarity Clear (Clear); Urine Color Colorless (Yellow); Urine Protein, UAD Negative (Negative); Urine Specific Gravity 1.009 (1.001-1.035); Urine Urobilinogen Normal (Negative); Urine WBC 1 /hpf (0 - 3)
[2023-06-25] MEDS: CARBIDOPA W LEVODOPA 25/100mg TABLET PO SCH ×3 (06:16→20:56)
[2023-06-25] MEDS: LEVOTHYROXINE SODIUM 100 MCG TAB PO SCH (06:16)
[2023-06-25] MEDS: ACCU-CHEK COMFORT CURVE STRIP VI SCH ×4 (06:16→20:57)
[2023-06-25] MEDS: levETIRAcetam 500 MG TAB PO SCH ×3 (06:16→20:56)
[2023-06-25] MEDS: DULoxetine HCL 30 MG CAP PO SCH ×3 (06:16→20:57)
[2023-06-25] MEDS: SODIUM CHLORIDE 0.9% 1,000 ML IV SCH (06:43)
[2023-06-25] MEDS: InsuLIN REG 1unit/0.01ml Soln (100units/ml) SC SCH ×4 (06:44→21:45)
[2023-06-25] MEDS: ENSURE CLEAR Mixed Berry 8oz Carton GT SCH ×3 (07:42→17:31)
[2023-06-25 08:00] VITALS: BP 123/55; PULSE 65; PULSE 66; RESP 18; TEMP 98.3; O2SAT 98
[2023-06-25 09:00] VITALS: BP 123/55; PULSE 66; RESP 18; TEMP 98.3; O2SAT 98
[2023-06-25] MEDS: MICAFUNGIN SODIUM 100 MG in SODIUM CHL 0.9% 100 ML IV SCH (10:10)
[2023-06-25] MEDS: ENOXAPARIN SOD 40 MG/0.4 ML SYRINGE SC SCH (10:11)
[2023-06-25] MEDS: DexAMETHasone SOD PHOS 10MG/1ML VIAL INJ IV SCH (10:11)
[2023-06-25] MEDS: CHOLECALCIFEROL (VITD3) 2,000 UNIT CAP/TAB PO SCH (10:11)
[2023-06-25] MEDS: PANTOPRAZOLE 40 MG TAB PO SCH (10:11)
[2023-06-25] MEDS: CLOPIDOGREL BISULFATE 75 MG TAB PO SCH (10:11)
[2023-06-25] MEDS: LATUDA 60 MG PO SCH (10:11)
[2023-06-25] MEDS: ZINC SULFATE 220mg CAP or TAB PO SCH (10:11)
[2023-06-25] MEDS: carBAMazepine 200 MG TAB PO SCH (10:11)
[2023-06-25] MEDS: ASCORBIC ACID 500 MG TAB PO SCH (10:11)
[2023-06-25 10:41] LABS: Basophils # (auto) 0 10 ^3/uL (0-0.2); Basophils % (auto) 0.3 % (0.0-2.0); Eosinophils # (auto) 0.1 10 ^3/uL (0-0.8); Eosinophils % (auto) 1.6 % (0.0-7.0); Hematocrit 35.9 % (41.0-53.0); Hemoglobin 11.4 g/dL (13.5-17.5); Lymphocytes # (auto) 1.4 10 ^3/uL (0.4-5.4); Lymphocytes % (auto) 25.8 % (10.0-50.0); Mean Corpuscular Hemoglobin 30.2 pg (28.0-32.0); Mean Corpuscular Hgb Conc. 31.7 g/dL (32.0-36.0); Mean Corpuscular Volume 95.2 fL (80.0-100.0); Monocytes # (auto) 0.4 10 ^3/uL (0-1.3); Monocytes % (auto) 7.8 % (0.0-12.0); Neutrophils # (auto) 3.4 10 ^3/uL (1.6-8.6); Neutrophils % (auto) 64.5 % (37.0-80.0); Red Blood Cells 3.78 10^6/uL (4.5-5.90); Red Cell Distribution Width 15.2 % (11.8-14.3); White Blood Cell 5.3 10^3/uL (4.4-10.8)
[2023-06-25 11:07] LABS: Alanine Aminotransferase 37 U/L (7-40); Alkaline Phosphatase 60 U/L (46-116); Anion Gap 7 (5-15); Aspartate Aminotransferase 58 U/L (13-40); BUN/Creatinine Ratio 25.5 (10.0-20.0); Blood Urea Nitrogen 28 mg/dL (9-23); Calcium 9.3 mg/dL (8.5-10.1); Carbon Dioxide 26 mmol/L (20-30); Chloride 113 mmol/L (98-107); Glucose 90 mg/dL (74-106); Potassium 4.3 mmol/L (3.5-5.1); Sodium 146 mmol/L (136-145)
[2023-06-25 11:08] LABS: Albumin 3.6 g/dL (3.2-4.8); Bilirubin, Total < 0.2 mg/dL (0.2-1.0); Total Protein 5.9 g/dL (5.7-8.2)
[2023-06-25 11:16] LABS: CRP High Sensitivity 3.95 mg/dL (<1.0)
[2023-06-25 12:59] VITALS: BP 127/47; PULSE 115; RESP 16; TEMP 97.6; O2SAT 90
[2023-06-25] MEDS: REMDESIVIR 100mg 100 MG in SODIUM CHL 0.9% 230 ML IV SCH (15:51)
[2023-06-25] MEDS: LITHIUM CARBONATE 300 MG TAB PO SCH (17:50)
[2023-06-25 20:00] VITALS: PULSE 68; RESP 20; O2SAT 96
[2023-06-25] MEDS: ATORVASTATIN 20 MG TAB PO SCH (20:56)
[2023-06-25] MEDS: INGREZZA PO SCH (20:57)
[2023-06-26] MEDS: FREE WATER GT SCH ×4 (00:14→17:37)
[2023-06-26] MEDS: SODIUM CHLORIDE 0.9% 1,000 ML IV SCH ×2 (00:19→21:10)
[2023-06-26 04:40] LABS: Basophils # (auto) 0 10 ^3/uL (0-0.2); Basophils % (auto) 0.3 % (0.0-2.0); Eosinophils # (auto) 0 10 ^3/uL (0-0.8); Eosinophils % (auto) 0.9 % (0.0-7.0); Hematocrit 35.2 % (41.0-53.0); Hemoglobin 11.1 g/dL (13.5-17.5); Lymphocytes # (auto) 1.2 10 ^3/uL (0.4-5.4); Mean Corpuscular Hemoglobin 29.6 pg (28.0-32.0); Mean Corpuscular Hgb Conc. 31.5 g/dL (32.0-36.0); Mean Corpuscular Volume 93.7 fL (80.0-100.0); Monocytes # (auto) 0.4 10 ^3/uL (0-1.3); Monocytes % (auto) 8.4 % (0.0-12.0); Neutrophils # (auto) 3.4 10 ^3/uL (1.6-8.6); Neutrophils % (auto) 66.4 % (37.0-80.0); Nucleated Red Blood Cells % 0.3 %; Red Blood Cells 3.76 10^6/uL (4.5-5.90); White Blood Cell 5.2 10^3/uL (4.4-10.8)
[2023-06-26 05:00] VITALS: BP 141/75; PULSE 68; RESP 16; TEMP 97.6; O2SAT 100
[2023-06-26 05:02] LABS: Albumin 3.5 g/dL (3.2-4.8); Alkaline Phosphatase 60 U/L (46-116); Anion Gap 5 (5-15); Aspartate Aminotransferase 44 U/L (13-40); BUN/Creatinine Ratio 24.8 (10.0-20.0); Bilirubin, Total < 0.2 mg/dL (0.2-1.0); Blood Urea Nitrogen 25 mg/dL (9-23); Calcium 8.7 mg/dL (8.7-10.4); Carbon Dioxide 27 mmol/L (20-30); Chloride 115 mmol/L (98-107); Glucose 89 mg/dL (74-106); Potassium 4.1 mmol/L (3.5-5.1); Sodium 147 mmol/L (136-145); Total Protein 5.8 g/dL (5.7-8.2)
[2023-06-26] MEDS: levETIRAcetam 500 MG TAB PO SCH ×3 (05:38→22:05)
[2023-06-26] MEDS: ACCU-CHEK COMFORT CURVE STRIP VI SCH ×4 (05:39→22:04)
[2023-06-26] MEDS: CARBIDOPA W LEVODOPA 25/100mg TABLET PO SCH ×3 (05:39→22:05)
[2023-06-26] MEDS: LEVOTHYROXINE SODIUM 100 MCG TAB PO SCH (05:39)
[2023-06-26] MEDS: DULoxetine HCL 30 MG CAP PO SCH ×3 (05:39→22:05)
[2023-06-26] MEDS: InsuLIN REG 1unit/0.01ml Soln (100units/ml) SC SCH ×4 (05:59→22:00)
[2023-06-26 06:18] LABS: Alanine Aminotransferase 40 U/L (7-40)
[2023-06-26] MEDS: ENSURE CLEAR Mixed Berry 8oz Carton GT SCH ×3 (07:55→17:37)
[2023-06-26 08:00] VITALS: BP 142/66; PULSE 67; PULSE 68; RESP 18; TEMP 98.1; O2SAT 99
[2023-06-26] MEDS: ZINC SULFATE 220mg CAP or TAB PO SCH (09:34)
[2023-06-26] MEDS: ENOXAPARIN SOD 40 MG/0.4 ML SYRINGE SC SCH (09:34)
[2023-06-26] MEDS: DexAMETHasone SOD PHOS 10MG/1ML VIAL INJ IV SCH (09:34)
[2023-06-26] MEDS: carBAMazepine 200 MG TAB PO SCH (09:34)
[2023-06-26] MEDS: CLOPIDOGREL BISULFATE 75 MG TAB PO SCH (09:34)
[2023-06-26] MEDS: ASCORBIC ACID 500 MG TAB PO SCH (09:34)
[2023-06-26] MEDS: CHOLECALCIFEROL (VITD3) 2,000 UNIT CAP/TAB PO SCH (09:34)
[2023-06-26] MEDS: MICAFUNGIN SODIUM 100 MG in SODIUM CHL 0.9% 100 ML IV SCH (09:34)
[2023-06-26] MEDS: PANTOPRAZOLE 40 MG TAB PO SCH (09:35)
[2023-06-26] MEDS: LATUDA 60 MG PO SCH (09:35)
[2023-06-26 12:00] VITALS: BP 144/67; PULSE 65; RESP 18; TEMP 98.2; O2SAT 100
[2023-06-26 16:00] VITALS: BP 153/75; PULSE 67; RESP 18; TEMP 98.9; O2SAT 99
[2023-06-26] MEDS: REMDESIVIR 100mg 100 MG in SODIUM CHL 0.9% 230 ML IV SCH (16:21)
[2023-06-26] MEDS: LITHIUM CARBONATE 300 MG TAB PO SCH (17:37)
[2023-06-26 20:00] VITALS: PULSE 64; RESP 19; O2SAT 98
[2023-06-26 22:00] VITALS: BP 168/77; PULSE 64; RESP 16; TEMP 98.5; O2SAT 99
[2023-06-26] MEDS: INGREZZA PO SCH (22:05)
[2023-06-26] MEDS: ATORVASTATIN 20 MG TAB PO SCH (22:05)
[2023-06-27 05:00] VITALS: BP 145/75; PULSE 68; RESP 16; TEMP 97.3; O2SAT 94
[2023-06-27] MEDS: CARBIDOPA W LEVODOPA 25/100mg TABLET PO SCH ×3 (06:03→23:19)
[2023-06-27] MEDS: DULoxetine HCL 30 MG CAP PO SCH ×3 (06:03→23:18)
[2023-06-27] MEDS: levETIRAcetam 500 MG TAB PO SCH ×3 (06:04→23:17)
[2023-06-27] MEDS: ACCU-CHEK COMFORT CURVE STRIP VI SCH ×4 (06:04→23:20)
[2023-06-27] MEDS: FREE WATER GT SCH ×5 (06:04→23:32)
[2023-06-27] MEDS: LEVOTHYROXINE SODIUM 100 MCG TAB PO SCH (06:04)
[2023-06-27] MEDS: InsuLIN REG 1unit/0.01ml Soln (100units/ml) SC SCH ×4 (06:23→22:00)
[2023-06-27 07:05] LABS: Basophils # (auto) 0 10 ^3/uL (0-0.2); Basophils % (auto) 0.3 % (0.0-2.0); Eosinophils # (auto) 0.1 10 ^3/uL (0-0.8); Eosinophils % (auto) 1.3 % (0.0-7.0); Hematocrit 35.9 % (41.0-53.0); Hemoglobin 11.6 g/dL (13.5-17.5); Lymphocytes # (auto) 1.1 10 ^3/uL (0.4-5.4); Lymphocytes % (auto) 23.2 % (10.0-50.0); Mean Corpuscular Hemoglobin 30.3 pg (28.0-32.0); Mean Corpuscular Hgb Conc. 32.4 g/dL (32.0-36.0); Mean Corpuscular Volume 93.4 fL (80.0-100.0); Monocytes # (auto) 0.5 10 ^3/uL (0-1.3); Monocytes % (auto) 10.5 % (0.0-12.0); Neutrophils # (auto) 3.2 10 ^3/uL (1.6-8.6); Neutrophils % (auto) 64.7 % (37.0-80.0); Nucleated Red Blood Cells % 0.1 %; Red Blood Cells 3.84 10^6/uL (4.5-5.90); Red Cell Distribution Width 15.3 % (11.8-14.3); White Blood Cell 4.9 10^3/uL (4.4-10.8)
[2023-06-27] MEDS: ENSURE CLEAR Mixed Berry 8oz Carton GT SCH ×3 (07:23→17:44)
[2023-06-27 08:00] VITALS: BP 135/64; PULSE 63; RESP 18; TEMP 97.9; O2SAT 99
[2023-06-27] MEDS: CLOPIDOGREL BISULFATE 75 MG TAB PO SCH (09:36)
[2023-06-27] MEDS: ZINC SULFATE 220mg CAP or TAB PO SCH (09:36)
[2023-06-27] MEDS: ASCORBIC ACID 500 MG TAB PO SCH (09:36)
[2023-06-27] MEDS: CHOLECALCIFEROL (VITD3) 2,000 UNIT CAP/TAB PO SCH (09:36)
[2023-06-27] MEDS: PANTOPRAZOLE 40 MG TAB PO SCH (09:36)
[2023-06-27] MEDS: carBAMazepine 200 MG TAB PO SCH (09:36)
[2023-06-27] MEDS: DexAMETHasone SOD PHOS 10MG/1ML VIAL INJ IV SCH (09:36)
[2023-06-27] MEDS: MICAFUNGIN SODIUM 100 MG in SODIUM CHL 0.9% 100 ML IV SCH (09:37)
[2023-06-27] MEDS: LATUDA 60 MG PO SCH (09:37)
[2023-06-27] MEDS: ENOXAPARIN SOD 40 MG/0.4 ML SYRINGE SC SCH (09:41)
[2023-06-27] MEDS: SODIUM CHLORIDE 0.9% 1,000 ML IV SCH ×2 (11:36→17:45)
[2023-06-27 12:00] VITALS: BP 154/94; PULSE 80; RESP 18; TEMP 99; O2SAT 97
[2023-06-27 16:00] VITALS: BP 147/88; PULSE 58; RESP 18; TEMP 99.4; O2SAT 98
[2023-06-27] MEDS: LITHIUM CARBONATE 300 MG TAB PO SCH (17:45)
[2023-06-27 20:00] VITALS: BP 152/77; PULSE 60; PULSE 70; RESP 16; TEMP 98.9
[2023-06-27 22:00] VITALS: BP 152/77; PULSE 70; RESP 16; TEMP 98.9; O2SAT 97
[2023-06-27] MEDS: HYDROcodone-ACET 5/325MG TAB PO PRN (23:17)
[2023-06-27] MEDS: ATORVASTATIN 20 MG TAB PO SCH (23:19)
[2023-06-27] MEDS: INGREZZA PO SCH (23:23)
[2023-06-28] VITALS (7 sets, daily range): BP systolic 128–151; BP diastolic 66–80; PULSE 59–79; RESP 16–20; TEMP 97.4–98.6; O2SAT 93–99
[2023-06-28] MEDS: levETIRAcetam 500 MG TAB PO SCH ×3 (06:51→21:43)
[2023-06-28] MEDS: DULoxetine HCL 30 MG CAP PO SCH ×3 (06:51→21:43)
[2023-06-28] MEDS: CARBIDOPA W LEVODOPA 25/100mg TABLET PO SCH ×3 (06:52→21:43)
[2023-06-28] MEDS: ACCU-CHEK COMFORT CURVE STRIP VI SCH ×4 (06:52→21:43)
[2023-06-28] MEDS: LEVOTHYROXINE SODIUM 100 MCG TAB PO SCH (06:52)
[2023-06-28] MEDS: FREE WATER GT SCH ×3 (06:53→18:26)
[2023-06-28 06:57] LABS: Basophils # (auto) 0 10 ^3/uL (0-0.2); Basophils % (auto) 0.4 % (0.0-2.0); Eosinophils # (auto) 0.2 10 ^3/uL (0-0.8); Eosinophils % (auto) 3.4 % (0.0-7.0); Hematocrit 36.2 % (41.0-53.0); Hemoglobin 11.9 g/dL (13.5-17.5); Lymphocytes # (auto) 1.2 10 ^3/uL (0.4-5.4); Lymphocytes % (auto) 18.6 % (10.0-50.0); Mean Corpuscular Hemoglobin 30.8 pg (28.0-32.0); Mean Corpuscular Volume 93.2 fL (80.0-100.0); Monocytes # (auto) 0.6 10 ^3/uL (0-1.3); Monocytes % (auto) 9.3 % (0.0-12.0); Neutrophils # (auto) 4.3 10 ^3/uL (1.6-8.6); Neutrophils % (auto) 68.3 % (37.0-80.0); Nucleated Red Blood Cells % 0.1 %; Red Blood Cells 3.88 10^6/uL (4.5-5.90); Red Cell Distribution Width 14.9 % (11.8-14.3); White Blood Cell 6.3 10^3/uL (4.4-10.8)
[2023-06-28] MEDS: InsuLIN REG 1unit/0.01ml Soln (100units/ml) SC SCH ×4 (07:00→21:44)
[2023-06-28 07:09] LABS: Anion Gap 3 (5-15); Carbon Dioxide 31 mmol/L (20-30); Chloride 111 mmol/L (98-107); Potassium 5.4 mmol/L (3.5-5.1); Sodium 145 mmol/L (136-145)
[2023-06-28 07:10] LABS: Calcium 9.3 mg/dL (8.7-10.4)
[2023-06-28 07:15] LABS: BUN/Creatinine Ratio 19.6 (10.0-20.0); Blood Urea Nitrogen 20 mg/dL (9-23); Glucose 98 mg/dL (74-106)
[2023-06-28] MEDS: ENSURE CLEAR Mixed Berry 8oz Carton GT SCH (08:00)
[2023-06-28] MEDS: DexAMETHasone SOD PHOS 10MG/1ML VIAL INJ IV SCH (11:17)
[2023-06-28] MEDS: ENOXAPARIN SOD 40 MG/0.4 ML SYRINGE SC SCH (11:17)
[2023-06-28] MEDS: LATUDA 60 MG PO SCH (11:17)
[2023-06-28] MEDS: CHOLECALCIFEROL (VITD3) 2,000 UNIT CAP/TAB PO SCH (11:18)
[2023-06-28] MEDS: ZINC SULFATE 220mg CAP or TAB PO SCH (11:18)
[2023-06-28] MEDS: ASCORBIC ACID 500 MG TAB PO SCH (11:18)
[2023-06-28] MEDS: CLOPIDOGREL BISULFATE 75 MG TAB PO SCH (11:18)
[2023-06-28] MEDS: PANTOPRAZOLE 40 MG TAB PO SCH (11:18)
[2023-06-28] MEDS: carBAMazepine 200 MG TAB PO SCH (11:18)
[2023-06-28] MEDS ORDERED: SODIUM ZIRCONIUM CYCL 10 GM PAK PO ONE (13:00)
[2023-06-28] MEDS: LITHIUM CARBONATE 300 MG TAB PO SCH (18:00)
[2023-06-28] MEDS: INGREZZA PO SCH (21:43)
[2023-06-28] MEDS: ATORVASTATIN 20 MG TAB PO SCH (21:43)
[2023-06-29] MEDS: FREE WATER GT SCH ×3 (00:34→11:30)
[2023-06-29 05:00] VITALS: BP 126/64; PULSE 87; RESP 17; TEMP 98.8; O2SAT 92
[2023-06-29] MEDS: DULoxetine HCL 30 MG CAP PO SCH ×2 (05:48→14:00)
[2023-06-29] MEDS: levETIRAcetam 500 MG TAB PO SCH ×2 (05:48→14:00)
[2023-06-29] MEDS: CARBIDOPA W LEVODOPA 25/100mg TABLET PO SCH ×2 (05:48→14:00)
[2023-06-29 06:23] LABS: Basophils # (auto) 0 10 ^3/uL (0-0.2); Basophils % (auto) 0.3 % (0.0-2.0); Eosinophils # (auto) 0.3 10 ^3/uL (0-0.8); Eosinophils % (auto) 3.5 % (0.0-7.0); Hematocrit 35.3 % (41.0-53.0); Hemoglobin 11.4 g/dL (13.5-17.5); Lymphocytes % (auto) 13.1 % (10.0-50.0); Mean Corpuscular Hemoglobin 30.2 pg (28.0-32.0); Mean Corpuscular Hgb Conc. 32.4 g/dL (32.0-36.0); Monocytes # (auto) 0.7 10 ^3/uL (0-1.3); Monocytes % (auto) 8.4 % (0.0-12.0); Neutrophils # (auto) 5.9 10 ^3/uL (1.6-8.6); Neutrophils % (auto) 74.7 % (37.0-80.0); Red Blood Cells 3.79 10^6/uL (4.5-5.90); Red Cell Distribution Width 15.1 % (11.8-14.3); White Blood Cell 7.9 10^3/uL (4.4-10.8)
[2023-06-29] MEDS: LEVOTHYROXINE SODIUM 100 MCG TAB PO SCH (06:26)
[2023-06-29] MEDS: ACCU-CHEK COMFORT CURVE STRIP VI SCH ×2 (06:26→11:30)
[2023-06-29] MEDS: InsuLIN REG 1unit/0.01ml Soln (100units/ml) SC SCH ×2 (06:27→11:30)
[2023-06-29 06:35] LABS: Anion Gap 7 (5-15); Carbon Dioxide 26 mmol/L (20-30); Chloride 111 mmol/L (98-107); Sodium 144 mmol/L (136-145)
[2023-06-29 06:36] LABS: Calcium 9.4 mg/dL (8.5-10.1)
[2023-06-29 06:41] LABS: BUN/Creatinine Ratio 17.1 (10.0-20.0); Blood Urea Nitrogen 18 mg/dL (9-23); Glucose 110 mg/dL (74-106)
[2023-06-29 08:30] VITALS: PULSE 88; PULSE 89; RESP 16
[2023-06-29 09:00] VITALS: BP 142/74; PULSE 78; RESP 18; TEMP 98.4; O2SAT 94
[2023-06-29] MEDS: LATUDA 60 MG PO SCH (09:47)
[2023-06-29] MEDS: ENOXAPARIN SOD 40 MG/0.4 ML SYRINGE SC SCH (10:15)
[2023-06-29] MEDS: ASCORBIC ACID 500 MG TAB PO SCH (10:15)
[2023-06-29] MEDS: CLOPIDOGREL BISULFATE 75 MG TAB PO SCH (10:15)
[2023-06-29] MEDS: carBAMazepine 200 MG TAB PO SCH (10:15)
[2023-06-29] MEDS: PANTOPRAZOLE 40 MG TAB PO SCH (10:15)
[2023-06-29] MEDS: CHOLECALCIFEROL (VITD3) 2,000 UNIT CAP/TAB PO SCH (10:15)
[2023-06-29] MEDS: ZINC SULFATE 220mg CAP or TAB PO SCH (10:15)
[2023-06-29] MEDS ORDERED: NUTR-1405 PO (12:31)
[2023-06-29 13:00] VITALS: BP 155/82; PULSE 81; RESP 18; TEMP 98.4; O2SAT 94
== END 2023-06-29 15:30 | disposition home health service (06) | DRG 444 ==
LOC: ER 14:54 → TELE 23:49 → TELE-WESTW 06-18 03:05
PROVIDERS: ADMIT Nurse Practitioner Family; ATTEND Nurse Practitioner Acute Care
PROC: 05HD33Z Insertion of Infusion Device into Right Cephalic Vein, Percutaneous Approach (ICD-10-PCS; 2023-06-19)
PROC: B54MZZA Ultrasonography of Right Upper Extremity Veins, Guidance (ICD-10-PCS; 2023-06-19)
PROC: XW033E5 Introduction of Remdesivir Anti-infective into Peripheral Vein, Percutaneous Approach, New Technology Group 5 (ICD-10-PCS; principal; 2023-06-22)
DX: K80.21 Calculus of gallbladder without cholecystitis with obstruction (principal); U07.1 COVID-19; I69.359 Hemiplegia and hemiparesis following cerebral infarction affecting unspecified side; N17.9 Acute kidney failure, unspecified; N39.0 Urinary tract infection, site not specified; G40.909 Epilepsy, unspecified, not intractable, without status epilepticus; G20.A1 Parkinson's disease without dyskinesia, without mention of fluctuations; I10 Essential (primary) hypertension; D64.9 Anemia, unspecified; E11.9 Type 2 diabetes mellitus without complications; Z80.0 Family history of malignant neoplasm of digestive organs; I25.2 Old myocardial infarction; Z88.8 Allergy status to other drugs, medicaments and biological substances; Z82.0 Family history of epilepsy and other diseases of the nervous system; Z82.49 Family history of ischemic heart disease and other diseases of the circulatory system; Z85.46 Personal history of malignant neoplasm of prostate; Z90.49 Acquired absence of other specified parts of digestive tract
CPT/HCPCS: 36415; 71045; 74021; 74176; 74181; 80048; 80053; 80178; 81001; 82728; 82962; 83605; 83880; 84132; 84443; 84484; 85007; 85025; 85027; 86141; 87040; 87077; 87205; 87426; 93005; G0378; J1100; J2248; J3490

== ENCOUNTER 2023-07-03 11:18 | Inpatient (IN) | payer MEDICARE, MEDICAID ==
[~2023-07-03] VITALS: Ht 175.3 cm; Wt 76.2 kg
[~2023-07-03 11:18] MED LIST changes: -ATOR20TA PO; +ATOR20TA50 PO; -CARB-87 PO; +CARB100C3 PO; -CARB200T5 PO; +CARB25TA77 PO; -CHOL20007 OR; +CHOL20007 PO; -CLOB0.055 EX; +CLOP75TA28 PO; -CLOP75TA70 PO; +CYA100I PO; -CYAN100056 PO; -DOXY-346 GT; +DULO20CA PO; -DULO60CA41 PO; -FLUO-381 EX; +FLUO-381 TOP; +HYDR2TAB3 PO; -KETO2AER3 EX; +KETO2CRE4 TOP; -LEV100T PO; +LEVO88TA4 PO; +NUTR-1405 PO; +PANT1INJ3 PO; -PANT40TA2 PO; -PERCOT PO; +POLY335015 PO; +VALB60CA PO; -VALB80CA PO
[2023-07-03 13:27] LABS: Basophils # (auto) 0 10 ^3/uL (0-0.2); Basophils % (auto) 0.1 % (0.0-2.0); Eosinophils # (auto) 0 10 ^3/uL (0-0.8); Hematocrit 42.3 % (41.0-53.0); Hemoglobin 13.4 g/dL (13.5-17.5); Lymphocytes # (auto) 0.8 10 ^3/uL (0.4-5.4); Lymphocytes % (auto) 4.1 % (10.0-50.0); Mean Corpuscular Hemoglobin 30.1 pg (28.0-32.0); Mean Corpuscular Hgb Conc. 31.7 g/dL (32.0-36.0); Mean Corpuscular Volume 95.1 fL (80.0-100.0); Monocytes # (auto) 1.4 10 ^3/uL (0-1.3); Monocytes % (auto) 7.1 % (0.0-12.0); Neutrophils # (auto) 17.9 10 ^3/uL (1.6-8.6); Neutrophils % (auto) 88.7 % (37.0-80.0); Red Blood Cells 4.45 10^6/uL (4.5-5.90); Red Cell Distribution Width 16.4 % (11.8-14.3); White Blood Cell 20.1 10^3/uL (4.4-10.8)
[2023-07-03 13:38] LABS: INR 1.01 (0.9-1.15); Partial Thromboplastin Time 28.8 SEC (24.5-34.5); Prothrombin Time 10.6 sec (9.3-11.8)
[2023-07-03 13:51] LABS: Alanine Aminotransferase 18 U/L (7-40); Albumin 4.3 g/dL (3.2-4.8); Alkaline Phosphatase 68 U/L (46-116); Anion Gap 9 (5-15); Aspartate Aminotransferase 52 U/L (13-40); BUN/Creatinine Ratio 19.1 (10.0-20.0); Blood Alcohol < 3.0 mg/dL (<10); Blood Urea Nitrogen 35 mg/dL (9-23); Calcium 10.1 mg/dL (8.7-10.4); Carbon Dioxide 26 mmol/L (20-30); Chloride 117 mmol/L (98-107); Glucose 127 mg/dL (74-106); Potassium 4.7 mmol/L (3.5-5.1)
[2023-07-03 13:52] LABS: Bilirubin, Total 0.2 mg/dL (0.2-1.0); Total Protein 7.2 g/dL (5.7-8.2)
[2023-07-03 13:53] LABS: Lactic Acid w/Reflex 2.7 mmol/L (0.4-2.0)
[2023-07-03 14:00] LABS: Base Excess -0.7 mmol/L (-2.0-2.0)
[2023-07-03] MEDS ORDERED: cefTRIAXone 1GM/50ML D5W 50 ML IV ONE (14:00)
[2023-07-03 14:02] LABS: Sodium 152 mmol/L (136-145)
[2023-07-03] MEDS ORDERED: VANCOMYCIN 1GM/200ML 250 ML IV ONE (14:45)
[2023-07-03 15:42] LABS: Urine Bacteria NONE SEEN /hpf (None Seen); Urine Blood Negative /uL (Negative); Urine Clarity HAZY (Clear); Urine Color Yellow (Yellow); Urine Mucus FEW (None Seen); Urine Protein, UAD 2+ (Negative); Urine Specific Gravity 1.022 (1.001-1.035); Urine WBC 42 /hpf (0 - 3)
[2023-07-03] MEDS ORDERED: levETIRAcetam 1000 mg/100ml 100 ML IV ONE (18:45)
[2023-07-03 19:04] VITALS: PULSE 115; RESP 19; O2SAT 92
[2023-07-03 20:05] VITALS: O2SAT 94
[2023-07-03] MEDS ORDERED: ACETAMINOPHEN 500 MG TAB PO ONE (20:30)
[2023-07-03] MEDS ORDERED: ACETAMINOPHEN 650 MG RECT SUPP PR ONE (22:30)
[2023-07-03] MEDS ORDERED: PIPERACILLIN-TAZOB 3.375GM 100 ML IV ONE (23:15)
[2023-07-03] MEDS ORDERED: ETOMIDATE (2MG/ML) 20ML VIAL IV ONE (23:15)
[2023-07-03] MEDS ORDERED: LACTATED RINGER'S 2,300 ML IV ONE (23:15)
[2023-07-03] MEDS ORDERED: ROCURONIUM 10MG/ML 10ML VIAL IV ONE (23:15)
[2023-07-03] MEDS: MIDAZOLAM DRIP 50 mg/50mL 50 ML IV SCH (23:45)
[2023-07-04] VITALS (70 sets, daily range): BP systolic 87–156; BP diastolic 48–107; PULSE 71–203; RESP 17–24; TEMP 98.1–99; O2SAT 93–100
[2023-07-04 00:46] LABS: Base Excess -3.1 mmol/L (-2.0-2.0)
[2023-07-04] MEDS ORDERED: ACETAMINOPHEN 325 MG TAB PO PRN (05:30)
[2023-07-04] MEDS ORDERED: ONDANSETRON HCL 4 MG/2 ML VIAL IV PRN (05:30)
[2023-07-04] MEDS ORDERED: NITROGLYCERIN 0.4 MG SL TAB SL PRN (05:30)
[2023-07-04] MEDS ORDERED: MORPHINE SULFATE INJ 2 MG/ml SYRG IV PRN (05:30)
[2023-07-04 06:11] LABS: Base Excess 0.3 mmol/L (-2.0-2.0)
[2023-07-04] MEDS: CARBIDOPA W LEVODOPA 25/100mg TABLET PO SCH ×3 (06:36→22:13)
[2023-07-04 07:02] LABS: Chloride 120 mmol/L (98-107); Potassium 4.1 mmol/L (3.5-5.1); Sodium 152 mmol/L (136-145)
[2023-07-04 07:03] LABS: Anion Gap 6 (5-15); Calcium 9.2 mg/dL (8.7-10.4); Carbon Dioxide 26 mmol/L (20-30)
[2023-07-04 07:08] LABS: BUN/Creatinine Ratio 17.2 (10.0-20.0); Blood Urea Nitrogen 34 mg/dL (9-23); Glucose 113 mg/dL (74-106)
[2023-07-04] MEDS: LEVOTHYROXINE SODIUM 88 MCG TAB PO SCH (07:09)
[2023-07-04] MEDS ORDERED: cefTRIAXone 1GM/50ML D5W 50 ML IV SCH ×2 (09:00→15:00)
[2023-07-04] MEDS: MIDAZOLAM DRIP 50 mg/50mL 50 ML IV SCH ×2 (09:50→22:49)
[2023-07-04] MEDS ORDERED: CLOPIDOGREL BISULFATE 75 MG TAB PO SCH (10:00)
[2023-07-04] MEDS ORDERED: AZITHROMYCIN 500MG/ 250ML 250 ML IV SCH (10:00)
[2023-07-04] MEDS: ENOXAPARIN SOD 30 MG/0.3 ML SYRINGE SC SCH (10:11)
[2023-07-04] MEDS: levETIRAcetam 500 MG TAB PO SCH ×2 (10:11→22:13)
[2023-07-04] MEDS: LINEZOLID 600MG/300ML 300 ML IV SCH ×2 (10:12→22:09)
[2023-07-04] MEDS: SODIUM CHLORIDE 0.9% 1,000 ML IV SCH ×2 (10:13→19:51)
[2023-07-04] MEDS: fentaNYL Drip 2500mCg/250mlNS 250 ML IV SCH (10:30)
[2023-07-04] MEDS: LITHIUM CARBONATE 300 MG TAB PO SCH ×2 (10:57→22:13)
[2023-07-04] MEDS: NOREPINEPHRINE 8 MG/250ML KIT 250 ML IV SCH (13:16)
[2023-07-04] MEDS: PIPERACILLIN-TAZOB 3.375GM 100 ML IV SCH ×2 (13:49→22:05)
[2023-07-04] MEDS ORDERED: metroNIDAZOLE 500MG/100ML 100 ML IV SCH (14:00)
[2023-07-04] MEDS: carBAMazepine 200 MG TAB PO SCH ×2 (14:30→22:13)
[2023-07-04] MEDS: ALBUTEROL SULF 2.5 MG/0.5ML(0.5%) NEB SOLN NEB PRN (19:30)
[2023-07-05] VITALS (106 sets, daily range): BP systolic 86–159; BP diastolic 32–75; PULSE 58–83; RESP 13–24; TEMP 97.7–99.1; O2SAT 64–100
[2023-07-05] MEDS: SODIUM CHLORIDE 0.9% 1,000 ML IV SCH ×2 (01:45→06:02)
[2023-07-05 04:32] LABS: Basophils # (auto) 0 10 ^3/uL (0-0.2); Basophils % (auto) 0.1 % (0.0-2.0); Eosinophils # (auto) 0 10 ^3/uL (0-0.8); Eosinophils % (auto) 0.1 % (0.0-7.0); Hemoglobin 9.7 g/dL (13.5-17.5); Lymphocytes % (auto) 7.9 % (10.0-50.0); Mean Corpuscular Hemoglobin 29.4 pg (28.0-32.0); Mean Corpuscular Hgb Conc. 31.3 g/dL (32.0-36.0); Monocytes # (auto) 0.7 10 ^3/uL (0-1.3); Monocytes % (auto) 5.3 % (0.0-12.0); Neutrophils # (auto) 10.7 10 ^3/uL (1.6-8.6); Neutrophils % (auto) 86.6 % (37.0-80.0); Red Cell Distribution Width 16.1 % (11.8-14.3); White Blood Cell 12.4 10^3/uL (4.4-10.8)
[2023-07-05 04:43] LABS: Albumin 3.4 g/dL (3.2-4.8); Alkaline Phosphatase 47 U/L (46-116); Anion Gap 8 (5-15); Aspartate Aminotransferase 62 U/L (13-40); BUN/Creatinine Ratio 19.6 (10.0-20.0); Blood Urea Nitrogen 30 mg/dL (9-23); Calcium 8.8 mg/dL (8.7-10.4); Carbon Dioxide 23 mmol/L (20-30); Chloride 122 mmol/L (98-107); Glucose 89 mg/dL (74-106); Potassium 3.7 mmol/L (3.5-5.1); Sodium 153 mmol/L (136-145)
[2023-07-05 04:44] LABS: Bilirubin, Total 0.2 mg/dL (0.2-1.0)
[2023-07-05 04:54] LABS: Alanine Aminotransferase 9 U/L (7-40)
[2023-07-05] MEDS: CARBIDOPA W LEVODOPA 25/100mg TABLET PO SCH ×3 (06:02→22:00)
[2023-07-05] MEDS: carBAMazepine 200 MG TAB PO SCH (06:02)
[2023-07-05] MEDS: LEVOTHYROXINE SODIUM 88 MCG TAB PO SCH (06:03)
[2023-07-05] MEDS: PIPERACILLIN-TAZOB 3.375GM 100 ML IV SCH ×3 (06:03→22:00)
[2023-07-05 08:37] LABS: Base Excess -3.9 mmol/L (-2.0-2.0)
[2023-07-05] MEDS ORDERED: Jevity 1.2 Cal/Fiber 1 Liter GT SCH (09:15)
[2023-07-05] MEDS: LINEZOLID 600MG/300ML 300 ML IV SCH ×2 (09:35→22:00)
[2023-07-05] MEDS: PANTOPRAZOLE 40 MG/10 ML VIAL INJ IV SCH (09:36)
[2023-07-05] MEDS: ENOXAPARIN SOD 30 MG/0.3 ML SYRINGE SC SCH (09:36)
[2023-07-05] MEDS: CHOLECALCIFEROL (VITD3) 2,000 UNIT CAP/TAB PO SCH (09:36)
[2023-07-05] MEDS: levETIRAcetam 500 MG TAB PO SCH ×2 (09:36→22:00)
[2023-07-05] MEDS: LITHIUM CARBONATE 300 MG TAB PO SCH ×2 (09:36→22:00)
[2023-07-05] MEDS: SOD CHL 0.45% 1,000 ML IV SCH ×2 (09:58→19:50)
[2023-07-05] MEDS: fentaNYL Drip 2500mCg/250mlNS 250 ML IV SCH (10:30)
[2023-07-05] MEDS: FREE WATER GT SCH ×2 (12:44→18:00)
[2023-07-05] MEDS: NOREPINEPHRINE 8 MG/250ML KIT 250 ML IV SCH (12:45)
[2023-07-05] MEDS: MIDAZOLAM DRIP 50 mg/50mL 50 ML IV SCH (14:29)
[2023-07-05] MEDS: carBAMazepine 200 MG/10 ML Ud ORAL Susp NG SCH ×2 (14:54→22:00)
[2023-07-05] MEDS ORDERED: VALB60CA PO (15:09)
[2023-07-05] MEDS ORDERED: CARB200T4 PO (15:15)
[2023-07-05] MEDS ORDERED: DULO1CAP5 PO (15:18)
[2023-07-05] MEDS ORDERED: LEVE100020 PO (15:22)
[2023-07-06] VITALS (103 sets, daily range): BP systolic 85–166; BP diastolic 42–73; PULSE 45–89; RESP 15–22; TEMP 97.7–99.9; O2SAT 97–100
[2023-07-06] MEDS: FREE WATER GT SCH ×5 (00:45→23:46)
[2023-07-06 02:47] LABS: Basophils # (auto) 0 10 ^3/uL (0-0.2); Basophils % (auto) 0.2 % (0.0-2.0); Eosinophils # (auto) 0.1 10 ^3/uL (0-0.8); Eosinophils % (auto) 0.8 % (0.0-7.0); Hematocrit 29.1 % (41.0-53.0); Hemoglobin 9.2 g/dL (13.5-17.5); Lymphocytes # (auto) 0.8 10 ^3/uL (0.4-5.4); Mean Corpuscular Hemoglobin 30.2 pg (28.0-32.0); Mean Corpuscular Hgb Conc. 31.7 g/dL (32.0-36.0); Mean Corpuscular Volume 95.3 fL (80.0-100.0); Monocytes # (auto) 0.5 10 ^3/uL (0-1.3); Monocytes % (auto) 5.6 % (0.0-12.0); Neutrophils # (auto) 7.7 10 ^3/uL (1.6-8.6); Neutrophils % (auto) 84.4 % (37.0-80.0); Red Blood Cells 3.05 10^6/uL (4.5-5.90); Red Cell Distribution Width 16.3 % (11.8-14.3); White Blood Cell 9.1 10^3/uL (4.4-10.8)
[2023-07-06 03:05] LABS: Anion Gap 5 (5-15); Carbon Dioxide 24 mmol/L (20-30); Chloride 121 mmol/L (98-107); Potassium 3.3 mmol/L (3.5-5.1); Sodium 150 mmol/L (136-145)
[2023-07-06 03:06] LABS: Calcium 8.6 mg/dL (8.7-10.4)
[2023-07-06 03:11] LABS: BUN/Creatinine Ratio 17.8 (10.0-20.0); Blood Urea Nitrogen 23 mg/dL (9-23); Glucose 100 mg/dL (74-106)
[2023-07-06] MEDS: SOD CHL 0.45% 1,000 ML IV SCH ×3 (05:15→13:42)
[2023-07-06] MEDS: PIPERACILLIN-TAZOB 3.375GM 100 ML IV SCH ×3 (06:13→22:45)
[2023-07-06] MEDS: carBAMazepine 200 MG/10 ML Ud ORAL Susp NG SCH ×3 (06:14→22:46)
[2023-07-06] MEDS: LEVOTHYROXINE SODIUM 88 MCG TAB PO SCH (06:14)
[2023-07-06] MEDS: CARBIDOPA W LEVODOPA 25/100mg TABLET PO SCH ×3 (06:14→22:47)
[2023-07-06 06:43] LABS: Base Excess -4.5 mmol/L (-2.0-2.0)
[2023-07-06] MEDS: NOREPINEPHRINE 8 MG/250ML KIT 250 ML IV SCH (09:00)
[2023-07-06] MEDS: PANTOPRAZOLE 40 MG/10 ML VIAL INJ IV SCH (11:00)
[2023-07-06] MEDS: ENOXAPARIN SOD 30 MG/0.3 ML SYRINGE SC SCH (11:00)
[2023-07-06] MEDS: LITHIUM CARBONATE 300 MG TAB PO SCH ×2 (11:00→22:46)
[2023-07-06] MEDS: CHOLECALCIFEROL (VITD3) 2,000 UNIT CAP/TAB PO SCH (11:00)
[2023-07-06] MEDS: LINEZOLID 600MG/300ML 300 ML IV SCH ×2 (11:00→22:46)
[2023-07-06] MEDS: levETIRAcetam 500 MG TAB PO SCH ×2 (11:00→22:46)
[2023-07-06] MEDS: fentaNYL Drip 2500mCg/250mlNS 250 ML IV SCH (11:13)
[2023-07-06] MEDS: MIDAZOLAM DRIP 50 mg/50mL 50 ML IV SCH (13:30)
[2023-07-06] MEDS ORDERED: Jevity 1.2 Cal/Fiber 1 Liter GT SCH (13:45)
[2023-07-06] MEDS ORDERED: DOPamine 1600MCG/ML D5W 250 ML IV ONE (15:48)
[2023-07-06] MEDS: DOPamine 1600MCG/ML D5W 250 ML IV SCH (16:02)
[2023-07-06] MEDS ORDERED: MORPHINE SULFATE INJ 2 MG/ml SYRG ONE (18:05)
[2023-07-06] MEDS ORDERED: ATROPINE SULFATE 1 MG/1 ML VIAL ONE (23:55)
[2023-07-07] VITALS (105 sets, daily range): BP systolic 80–201; BP diastolic 46–78; PULSE 46–99; RESP 14–22; TEMP 97.3–99.5; O2SAT 97–100
[2023-07-07 02:00] LABS: Basophils # (auto) 0 10 ^3/uL (0-0.2); Basophils % (auto) 0.4 % (0.0-2.0); Eosinophils # (auto) 0.1 10 ^3/uL (0-0.8); Eosinophils % (auto) 1.1 % (0.0-7.0); Hemoglobin 10.5 g/dL (13.5-17.5); Lymphocytes # (auto) 0.8 10 ^3/uL (0.4-5.4); Lymphocytes % (auto) 11.7 % (10.0-50.0); Mean Corpuscular Hemoglobin 30.3 pg (28.0-32.0); Mean Corpuscular Volume 94.9 fL (80.0-100.0); Monocytes # (auto) 0.5 10 ^3/uL (0-1.3); Monocytes % (auto) 6.8 % (0.0-12.0); Neutrophils # (auto) 5.4 10 ^3/uL (1.6-8.6); Red Blood Cells 3.48 10^6/uL (4.5-5.90); Red Cell Distribution Width 16.2 % (11.8-14.3); White Blood Cell 6.8 10^3/uL (4.4-10.8)
[2023-07-07 02:10] LABS: Alanine Aminotransferase 14 U/L (7-40); Albumin 3.5 g/dL (3.2-4.8); Alkaline Phosphatase 90 U/L (46-116); Anion Gap 7 (5-15); Aspartate Aminotransferase 91 U/L (13-40); BUN/Creatinine Ratio 12.6 (10.0-20.0); Bilirubin, Total 0.3 mg/dL (0.2-1.0); Blood Urea Nitrogen 15 mg/dL (9-23); Carbon Dioxide 24 mmol/L (20-30); Chloride 123 mmol/L (98-107); Glucose 117 mg/dL (74-106); Potassium 3.6 mmol/L (3.5-5.1); Sodium 154 mmol/L (136-145); Total Protein 6.2 g/dL (5.7-8.2)
[2023-07-07] MEDS: SOD CHL 0.45% 1,000 ML IV SCH (03:05)
[2023-07-07] MEDS ORDERED: ATROPINE SULFATE 1 MG/1 ML VIAL ONE (03:21)
[2023-07-07] MEDS ORDERED: ATROPINE SULF 1 MG/10ml SYR IV PRN (04:00)
[2023-07-07] MEDS ORDERED: ATROPINE SULFATE 1 MG/1 ML VIAL IV PRN (04:30)
[2023-07-07] MEDS: FREE WATER GT SCH ×4 (06:15→23:03)
[2023-07-07] MEDS: PIPERACILLIN-TAZOB 3.375GM 100 ML IV SCH (06:15)
[2023-07-07] MEDS: carBAMazepine 200 MG/10 ML Ud ORAL Susp NG SCH ×3 (06:15→21:25)
[2023-07-07] MEDS: LEVOTHYROXINE SODIUM 88 MCG TAB PO SCH (06:15)
[2023-07-07] MEDS: CARBIDOPA W LEVODOPA 25/100mg TABLET PO SCH ×3 (06:15→21:24)
[2023-07-07 07:53] LABS: Base Excess -2.9 mmol/L (-2.0-2.0)
[2023-07-07] MEDS: D5W 5% 1,000 ML IV SCH ×3 (09:36→21:44)
[2023-07-07] MEDS: LINEZOLID 600MG/300ML 300 ML IV SCH (09:38)
[2023-07-07] MEDS: LITHIUM CARBONATE 300 MG TAB PO SCH ×2 (09:38→21:25)
[2023-07-07] MEDS: POTASSIUM EFFERVESENT TAB 25 MEQ PO SCH (09:38)
[2023-07-07] MEDS: PANTOPRAZOLE 40 MG/10 ML VIAL INJ IV SCH (09:38)
[2023-07-07] MEDS: levETIRAcetam 500 MG TAB PO SCH ×2 (09:39→21:24)
[2023-07-07] MEDS: CHOLECALCIFEROL (VITD3) 2,000 UNIT CAP/TAB PO SCH (09:39)
[2023-07-07] MEDS ORDERED: ENOXAPARIN SOD 30 MG/0.3 ML SYRINGE SC SCH (10:00)
[2023-07-07] MEDS: MIDAZOLAM DRIP 50 mg/50mL 50 ML IV SCH (10:21)
[2023-07-07] MEDS: fentaNYL Drip 2500mCg/250mlNS 250 ML IV SCH (10:30)
[2023-07-07] MEDS: NOREPINEPHRINE 8 MG/250ML KIT 250 ML IV SCH ×2 (12:45→17:09)
[2023-07-07] MEDS: DOPamine 1600MCG/ML D5W 250 ML IV SCH ×2 (15:45→21:12)
[2023-07-07] MEDS: AMPICILLIN SOD 2 GM in SODIUM CHL 0.9% 100 ML IV SCH ×2 (18:41→23:03)
[2023-07-08] VITALS (76 sets, daily range): BP systolic 88–155; BP diastolic 45–68; PULSE 51–92; RESP 10–23; TEMP 97.9–99.7; O2SAT 93–100
[2023-07-08 04:13] LABS: Basophils # (auto) 0 10 ^3/uL (0-0.2); Basophils % (auto) 0.3 % (0.0-2.0); Eosinophils # (auto) 0.1 10 ^3/uL (0-0.8); Eosinophils % (auto) 1.8 % (0.0-7.0); Hematocrit 28.5 % (41.0-53.0); Hemoglobin 9.1 g/dL (13.5-17.5); Lymphocytes # (auto) 0.7 10 ^3/uL (0.4-5.4); Mean Corpuscular Hemoglobin 30.2 pg (28.0-32.0); Mean Corpuscular Volume 94.2 fL (80.0-100.0); Monocytes # (auto) 0.5 10 ^3/uL (0-1.3); Monocytes % (auto) 6.8 % (0.0-12.0); Neutrophils # (auto) 6.5 10 ^3/uL (1.6-8.6); Neutrophils % (auto) 82.1 % (37.0-80.0); Red Blood Cells 3.02 10^6/uL (4.5-5.90); Red Cell Distribution Width 15.9 % (11.8-14.3)
[2023-07-08 04:29] LABS: Anion Gap 8 (5-15); Calcium 8.8 mg/dL (8.7-10.4); Carbon Dioxide 24 mmol/L (20-30); Chloride 121 mmol/L (98-107); Potassium 3.3 mmol/L (3.5-5.1); Sodium 153 mmol/L (136-145)
[2023-07-08 04:35] LABS: BUN/Creatinine Ratio 8.5 (10.0-20.0); Blood Urea Nitrogen 9 mg/dL (9-23); Glucose 114 mg/dL (74-106)
[2023-07-08] MEDS: CARBIDOPA W LEVODOPA 25/100mg TABLET PO SCH ×3 (05:04→21:36)
[2023-07-08] MEDS: FREE WATER GT SCH ×5 (05:05→21:41)
[2023-07-08] MEDS: AMPICILLIN SOD 2 GM in SODIUM CHL 0.9% 100 ML IV SCH ×5 (05:05→23:09)
[2023-07-08] MEDS: carBAMazepine 200 MG/10 ML Ud ORAL Susp NG SCH ×3 (05:09→21:38)
[2023-07-08] MEDS: LEVOTHYROXINE SODIUM 88 MCG TAB PO SCH (05:50)
[2023-07-08] MEDS: D5W 5% 1,000 ML IV SCH ×2 (06:01→17:35)
[2023-07-08] MEDS ORDERED: POTASSIUM CHL 20MEQ/100ML 100 ML IV ONE (07:30)
[2023-07-08] MEDS: ENOXAPARIN SOD 40 MG/0.4 ML SYRINGE SC SCH (09:58)
[2023-07-08] MEDS: levETIRAcetam 500 MG TAB PO SCH ×2 (09:58→21:35)
[2023-07-08] MEDS: POTASSIUM EFFERVESENT TAB 25 MEQ PO SCH (09:58)
[2023-07-08] MEDS: LITHIUM CARBONATE 300 MG TAB PO SCH ×2 (09:58→21:37)
[2023-07-08] MEDS: CHOLECALCIFEROL (VITD3) 2,000 UNIT CAP/TAB PO SCH (10:00)
[2023-07-08] MEDS: PANTOPRAZOLE 40 MG/10 ML VIAL INJ IV SCH (10:08)
[2023-07-08] MEDS: fentaNYL Drip 2500mCg/250mlNS 250 ML IV SCH (10:30)
[2023-07-08] MEDS: NOREPINEPHRINE 8 MG/250ML KIT 250 ML IV SCH (16:00)
[2023-07-08] MEDS: ALBUTEROL SULF 2.5 MG/0.5ML(0.5%) NEB SOLN NEB PRN (21:09)
[2023-07-08] MEDS: MIDAZOLAM DRIP 50 mg/50mL 50 ML IV SCH (23:08)
[2023-07-09] VITALS (32 sets, daily range): BP systolic 90–131; BP diastolic 42–67; PULSE 54–91; RESP 11–23; TEMP 98.4–100.4; O2SAT 96–100
[2023-07-09] MEDS: FREE WATER GT SCH ×6 (03:38→22:16)
[2023-07-09 04:34] LABS: Basophils # (auto) 0 10 ^3/uL (0-0.2); Basophils % (auto) 0.3 % (0.0-2.0); Eosinophils # (auto) 0.1 10 ^3/uL (0-0.8); Eosinophils % (auto) 1.8 % (0.0-7.0); Hematocrit 25.6 % (41.0-53.0); Hemoglobin 8.2 g/dL (13.5-17.5); Lymphocytes # (auto) 0.7 10 ^3/uL (0.4-5.4); Lymphocytes % (auto) 8.3 % (10.0-50.0); Mean Corpuscular Hemoglobin 30.1 pg (28.0-32.0); Mean Corpuscular Hgb Conc. 31.9 g/dL (32.0-36.0); Mean Corpuscular Volume 94.4 fL (80.0-100.0); Monocytes # (auto) 0.6 10 ^3/uL (0-1.3); Monocytes % (auto) 7.4 % (0.0-12.0); Neutrophils # (auto) 6.6 10 ^3/uL (1.6-8.6); Neutrophils % (auto) 82.2 % (37.0-80.0); Red Blood Cells 2.71 10^6/uL (4.5-5.90); Red Cell Distribution Width 15.5 % (11.8-14.3)
[2023-07-09 04:43] LABS: Anion Gap 7 (5-15); Carbon Dioxide 23 mmol/L (20-30); Chloride 115 mmol/L (98-107); Potassium 3.6 mmol/L (3.5-5.1)
[2023-07-09 04:45] LABS: Calcium 8.2 mg/dL (8.7-10.4)
[2023-07-09 04:49] LABS: BUN/Creatinine Ratio 7.7 (10.0-20.0); Blood Urea Nitrogen 7 mg/dL (9-23); Glucose 82 mg/dL (74-106)
[2023-07-09 04:56] LABS: Sodium 145 mmol/L (136-145)
[2023-07-09] MEDS: CARBIDOPA W LEVODOPA 25/100mg TABLET PO SCH ×3 (05:26→22:14)
[2023-07-09] MEDS: AMPICILLIN SOD 2 GM in SODIUM CHL 0.9% 100 ML IV SCH ×3 (05:26→17:39)
[2023-07-09] MEDS: LEVOTHYROXINE SODIUM 88 MCG TAB PO SCH (05:26)
[2023-07-09] MEDS: carBAMazepine 200 MG/10 ML Ud ORAL Susp NG SCH ×3 (05:27→22:16)
[2023-07-09] MEDS: CHOLECALCIFEROL (VITD3) 2,000 UNIT CAP/TAB PO SCH (09:56)
[2023-07-09] MEDS: PANTOPRAZOLE 40 MG/10 ML VIAL INJ IV SCH (09:56)
[2023-07-09] MEDS: levETIRAcetam 500 MG TAB PO SCH ×2 (09:57→22:14)
[2023-07-09] MEDS: POTASSIUM EFFERVESENT TAB 25 MEQ PO SCH (09:58)
[2023-07-09] MEDS: LITHIUM CARBONATE 300 MG TAB PO SCH ×2 (09:58→22:15)
[2023-07-09] MEDS: ENOXAPARIN SOD 40 MG/0.4 ML SYRINGE SC SCH (09:58)
[2023-07-09] MEDS: fentaNYL Drip 2500mCg/250mlNS 250 ML IV SCH (10:30)
[2023-07-09] MEDS: D5W 5% 1,000 ML IV SCH (11:15)
[2023-07-09] MEDS: CIPROFLOXACIN HCL 500 MG TAB PO SCH (22:00)
[2023-07-10] VITALS (28 sets, daily range): BP systolic 109–140; BP diastolic 44–69; PULSE 75–95; RESP 11–21; TEMP 98.3–99.9; O2SAT 84–100
[2023-07-10] MEDS: AMPICILLIN SOD 2 GM in SODIUM CHL 0.9% 100 ML IV SCH ×4 (00:04→18:58)
[2023-07-10] MEDS: FREE WATER GT SCH ×4 (02:00→14:23)
[2023-07-10] MEDS: MORPHINE SULFATE INJ 2 MG/ml SYRG IV PRN ×2 (03:24→11:03)
[2023-07-10 03:58] LABS: Basophils # (auto) 0 10 ^3/uL (0-0.2); Basophils % (auto) 0.5 % (0.0-2.0); Eosinophils # (auto) 0.2 10 ^3/uL (0-0.8); Eosinophils % (auto) 2.8 % (0.0-7.0); Hematocrit 27.1 % (41.0-53.0); Hemoglobin 8.7 g/dL (13.5-17.5); Lymphocytes % (auto) 13.6 % (10.0-50.0); Mean Corpuscular Hemoglobin 29.8 pg (28.0-32.0); Mean Corpuscular Volume 93.3 fL (80.0-100.0); Monocytes # (auto) 0.6 10 ^3/uL (0-1.3); Monocytes % (auto) 8.1 % (0.0-12.0); Neutrophils # (auto) 5.8 10 ^3/uL (1.6-8.6); Red Cell Distribution Width 15.5 % (11.8-14.3); White Blood Cell 7.7 10^3/uL (4.4-10.8)
[2023-07-10 04:17] LABS: Alanine Aminotransferase 11 U/L (7-40); Albumin 3.3 g/dL (3.2-4.8); Alkaline Phosphatase 52 U/L (46-116); Anion Gap 7 (5-15); Aspartate Aminotransferase 29 U/L (13-40); BUN/Creatinine Ratio 6.6 (10.0-20.0); Blood Urea Nitrogen 7 mg/dL (9-23); Calcium 8.5 mg/dL (8.7-10.4); Carbon Dioxide 25 mmol/L (20-30); Chloride 118 mmol/L (98-107); Glucose 86 mg/dL (74-106); Magnesium 1.9 mg/dL (1.6-2.6)
[2023-07-10 04:18] LABS: Bilirubin, Total 0.2 mg/dL (0.2-1.0); Phosphorus 2.5 mg/dL (2.4-5.1); Sodium 150 mmol/L (136-145); Total Protein 5.7 g/dL (5.7-8.2)
[2023-07-10] MEDS: CARBIDOPA W LEVODOPA 25/100mg TABLET PO SCH ×3 (06:00→22:06)
[2023-07-10] MEDS: LEVOTHYROXINE SODIUM 88 MCG TAB PO SCH (06:01)
[2023-07-10] MEDS: carBAMazepine 200 MG/10 ML Ud ORAL Susp NG SCH ×3 (09:44→22:07)
[2023-07-10] MEDS: POTASSIUM EFFERVESENT TAB 25 MEQ PO SCH (10:38)
[2023-07-10] MEDS: LITHIUM CARBONATE 300 MG TAB PO SCH ×2 (10:38→22:05)
[2023-07-10] MEDS: CIPROFLOXACIN HCL 500 MG TAB PO SCH ×2 (10:39→22:06)
[2023-07-10] MEDS: CHOLECALCIFEROL (VITD3) 2,000 UNIT CAP/TAB PO SCH (10:39)
[2023-07-10] MEDS: ENOXAPARIN SOD 40 MG/0.4 ML SYRINGE SC SCH (10:39)
[2023-07-10] MEDS: PANTOPRAZOLE 40 MG/10 ML VIAL INJ IV SCH (10:40)
[2023-07-10] MEDS: levETIRAcetam 500 MG TAB PO SCH ×2 (10:52→22:06)
[2023-07-10] MEDS: D5W 5% 1,000 ML IV SCH ×2 (12:30→22:11)
[2023-07-11] VITALS (7 sets, daily range): BP systolic 126–139; BP diastolic 57–77; PULSE 79–102; RESP 17–20; TEMP 98.3–99.9; O2SAT 93–96
[2023-07-11] MEDS: AMPICILLIN SOD 2 GM in SODIUM CHL 0.9% 100 ML IV SCH ×5 (01:25→23:25)
[2023-07-11 02:00] LABS: Hematocrit 30.3 % (41.0-53.0); Hemoglobin 9.7 g/dL (13.5-17.5)
[2023-07-11] MEDS: carBAMazepine 200 MG/10 ML Ud ORAL Susp NG SCH (05:01)
[2023-07-11] MEDS: CARBIDOPA W LEVODOPA 25/100mg TABLET PO SCH ×3 (05:01→21:46)
[2023-07-11] MEDS: LEVOTHYROXINE SODIUM 88 MCG TAB PO SCH (06:02)
[2023-07-11 06:37] LABS: Chloride 117 mmol/L (98-107); Potassium 3.6 mmol/L (3.5-5.1); Sodium 148 mmol/L (136-145)
[2023-07-11 06:38] LABS: Anion Gap 9 (5-15); Carbon Dioxide 22 mmol/L (20-30)
[2023-07-11 06:39] LABS: Calcium 8.8 mg/dL (8.7-10.4)
[2023-07-11 06:43] LABS: BUN/Creatinine Ratio 4.4 (10.0-20.0); Blood Urea Nitrogen 5 mg/dL (9-23); Glucose 107 mg/dL (74-106)
[2023-07-11] MEDS: D5W 5% 1,000 ML IV SCH ×2 (08:30→18:30)
[2023-07-11] MEDS: POTASSIUM EFFERVESENT TAB 25 MEQ PO SCH (11:43)
[2023-07-11] MEDS: ENOXAPARIN SOD 40 MG/0.4 ML SYRINGE SC SCH (11:43)
[2023-07-11] MEDS: PANTOPRAZOLE 40 MG/10 ML VIAL INJ IV SCH (11:43)
[2023-07-11] MEDS: CHOLECALCIFEROL (VITD3) 2,000 UNIT CAP/TAB PO SCH (11:45)
[2023-07-11] MEDS: CIPROFLOXACIN HCL 500 MG TAB PO SCH ×2 (11:46→21:46)
[2023-07-11] MEDS: levETIRAcetam 500 MG TAB PO SCH ×2 (11:46→21:46)
[2023-07-11] MEDS: LITHIUM CARBONATE 300 MG TAB PO SCH ×2 (11:47→21:46)
[2023-07-11] MEDS: carBAMazepine 200 MG/10 ML Ud ORAL Susp PO SCH ×2 (14:12→21:47)
[2023-07-12] VITALS (8 sets, daily range): BP systolic 101–142; BP diastolic 55–73; PULSE 82–130; RESP 17–20; TEMP 97.5–98.8; O2SAT 90–98
[2023-07-12] MEDS: D5W 5% 1,000 ML IV SCH ×2 (04:30→14:30)
[2023-07-12] MEDS: AMPICILLIN SOD 2 GM in SODIUM CHL 0.9% 100 ML IV SCH ×3 (06:11→18:52)
[2023-07-12] MEDS: LEVOTHYROXINE SODIUM 88 MCG TAB PO SCH (06:11)
[2023-07-12] MEDS: CARBIDOPA W LEVODOPA 25/100mg TABLET PO SCH ×3 (06:11→21:41)
[2023-07-12] MEDS: carBAMazepine 200 MG/10 ML Ud ORAL Susp PO SCH ×3 (06:11→21:36)
[2023-07-12 06:32] LABS: Anion Gap 6 (5-15); Carbon Dioxide 26 mmol/L (20-30); Chloride 120 mmol/L (98-107); Potassium 3.8 mmol/L (3.5-5.1); Sodium 152 mmol/L (136-145)
[2023-07-12 06:34] LABS: Calcium 9.2 mg/dL (8.7-10.4)
[2023-07-12 06:35] LABS: Basophils # (auto) 0 10 ^3/uL (0-0.2); Basophils % (auto) 0.6 % (0.0-2.0); Eosinophils # (auto) 0.1 10 ^3/uL (0-0.8); Eosinophils % (auto) 2.5 % (0.0-7.0); Hematocrit 27.5 % (41.0-53.0); Hemoglobin 8.8 g/dL (13.5-17.5); Lymphocytes # (auto) 0.7 10 ^3/uL (0.4-5.4); Lymphocytes % (auto) 12.3 % (10.0-50.0); Mean Corpuscular Hemoglobin 30.5 pg (28.0-32.0); Mean Corpuscular Hgb Conc. 31.9 g/dL (32.0-36.0); Mean Corpuscular Volume 95.5 fL (80.0-100.0); Monocytes # (auto) 0.5 10 ^3/uL (0-1.3); Neutrophils # (auto) 4.2 10 ^3/uL (1.6-8.6); Neutrophils % (auto) 75.6 % (37.0-80.0); Nucleated Red Blood Cells % 0.1 %; Red Blood Cells 2.88 10^6/uL (4.5-5.90); Red Cell Distribution Width 16.2 % (11.8-14.3); White Blood Cell 5.5 10^3/uL (4.4-10.8)
[2023-07-12 06:38] LABS: Glucose 110 mg/dL (74-106)
[2023-07-12 06:39] LABS: BUN/Creatinine Ratio 5.7 (10.0-20.0); Blood Urea Nitrogen 7 mg/dL (9-23); Magnesium 2.1 mg/dL (1.6-2.6)
[2023-07-12 06:41] LABS: Phosphorus 3.8 mg/dL (2.4-5.1)
[2023-07-12] MEDS: CHOLECALCIFEROL (VITD3) 2,000 UNIT CAP/TAB PO SCH (10:00)
[2023-07-12] MEDS: levETIRAcetam 500 MG TAB PO SCH ×2 (11:06→21:35)
[2023-07-12] MEDS: ENOXAPARIN SOD 40 MG/0.4 ML SYRINGE SC SCH (11:06)
[2023-07-12] MEDS: POTASSIUM EFFERVESENT TAB 25 MEQ PO SCH (11:07)
[2023-07-12] MEDS: PANTOPRAZOLE 40 MG TAB PO SCH (11:11)
[2023-07-12] MEDS: CIPROFLOXACIN HCL 500 MG TAB PO SCH ×2 (11:12→21:35)
[2023-07-12] MEDS: LITHIUM CARBONATE 300 MG TAB PO SCH ×2 (18:52→21:35)
[2023-07-13] VITALS (9 sets, daily range): BP systolic 113–156; BP diastolic 58–71; PULSE 82–103; RESP 14–18; TEMP 96.7–98.5; O2SAT 92–98
[2023-07-13] MEDS: AMPICILLIN SOD 2 GM in SODIUM CHL 0.9% 100 ML IV SCH ×4 (00:17→18:05)
[2023-07-13] MEDS: D5W 5% 1,000 ML IV SCH ×3 (00:19→20:30)
[2023-07-13] MEDS: LEVOTHYROXINE SODIUM 88 MCG TAB PO SCH (06:01)
[2023-07-13] MEDS: CARBIDOPA W LEVODOPA 25/100mg TABLET PO SCH ×3 (06:01→21:29)
[2023-07-13] MEDS: carBAMazepine 200 MG/10 ML Ud ORAL Susp PO SCH ×3 (06:01→21:30)
[2023-07-13] MEDS: PANTOPRAZOLE 40 MG TAB PO SCH (10:00)
[2023-07-13] MEDS: POTASSIUM EFFERVESENT TAB 25 MEQ PO SCH (10:00)
[2023-07-13] MEDS: CIPROFLOXACIN HCL 500 MG TAB PO SCH ×2 (10:00→21:28)
[2023-07-13] MEDS: CHOLECALCIFEROL (VITD3) 2,000 UNIT CAP/TAB PO SCH (10:00)
[2023-07-13] MEDS: LITHIUM CARBONATE 300 MG TAB PO SCH ×2 (10:23→21:29)
[2023-07-13] MEDS: levETIRAcetam 500 MG TAB PO SCH ×2 (10:24→21:28)
[2023-07-13] MEDS: ENOXAPARIN SOD 40 MG/0.4 ML SYRINGE SC SCH (10:25)
[2023-07-13] MEDS ORDERED: ENSURE CLEAR Mixed Berry 8oz Carton PO SCH (18:00)
[2023-07-14 05:00] VITALS: BP 146/76; PULSE 87; RESP 19; TEMP 98.7; O2SAT 100
[2023-07-14] MEDS: AMPICILLIN SOD 2 GM in SODIUM CHL 0.9% 100 ML IV SCH ×3 (06:00)
[2023-07-14] MEDS: carBAMazepine 200 MG/10 ML Ud ORAL Susp PO SCH (06:12)
[2023-07-14] MEDS: LEVOTHYROXINE SODIUM 88 MCG TAB PO SCH (06:12)
[2023-07-14] MEDS: CARBIDOPA W LEVODOPA 25/100mg TABLET PO SCH (06:12)
[2023-07-14] MEDS: D5W 5% 1,000 ML IV SCH (06:17)
== END 2023-07-14 07:14 | disposition home or self-care (01) | DRG 870 ==
LOC: ER 11:18 → TELE 07-04 05:25 → ICU WEST 07-04 08:43 → TELE-EAST 07-10 17:49 → EAST 07-11 19:33
PROVIDERS: ADMIT Nurse Practitioner; ATTEND Nurse Practitioner Acute Care
PROC: 5A1955Z Respiratory Ventilation, Greater than 96 Consecutive Hours (ICD-10-PCS; principal; 2023-07-04)
PROC: 0BH17EZ Insertion of Endotracheal Airway into Trachea, Via Natural or Artificial Opening (ICD-10-PCS; 2023-07-04)
PROC: 02HV33Z Insertion of Infusion Device into Superior Vena Cava, Percutaneous Approach (ICD-10-PCS; 2023-07-04)
PROC: B548ZZA Ultrasonography of Superior Vena Cava, Guidance (ICD-10-PCS; 2023-07-04)
DX: A41.89 Other specified sepsis (principal); G93.41 Metabolic encephalopathy; J96.01 Acute respiratory failure with hypoxia; N17.0 Acute kidney failure with tubular necrosis; J15.0 Pneumonia due to Klebsiella pneumoniae; E86.0 Dehydration; G20.A1 Parkinson's disease without dyskinesia, without mention of fluctuations; E87.8 Other disorders of electrolyte and fluid balance, not elsewhere classified; G40.909 Epilepsy, unspecified, not intractable, without status epilepticus; I10 Essential (primary) hypertension; K83.8 Other specified diseases of biliary tract; R65.20 Severe sepsis without septic shock; E11.42 Type 2 diabetes mellitus with diabetic polyneuropathy; B95.2 Enterococcus as the cause of diseases classified elsewhere; Z93.1 Gastrostomy status; N30.90 Cystitis, unspecified without hematuria; K59.00 Constipation, unspecified; Z80.0 Family history of malignant neoplasm of digestive organs; Z82.0 Family history of epilepsy and other diseases of the nervous system; Z82.49 Family history of ischemic heart disease and other diseases of the circulatory system; Z86.16 Personal history of COVID-19; Z86.73 Personal history of transient ischemic attack (TIA), and cerebral infarction without residual deficits; Z87.01 Personal history of pneumonia (recurrent); Z90.49 Acquired absence of other specified parts of digestive tract; E78.5 Hyperlipidemia, unspecified; I25.2 Old myocardial infarction
CPT/HCPCS: 36415; 36600; 70450; 70490; 71045; 74181; 80048; 80053; 80178; 80320; 81001; 82805; 82962; 83605; 83735; 84100; 84484; 85014; 85018; 85025; 85610; 85730; 87040; 87070; 87077; 87081; 87086; 87088; 87186; 87205; 92610; 94003; 94640; 96361; 96365; 96367; 97110; 97116; 97163; 99291; C9113; G0378; J0461; J2250; J2543; J3480; J7042

== ENCOUNTER 2023-07-14 15:45 | Inpatient (IN) | payer MEDICARE, MEDICAID ==
[~2023-07-14] VITALS: Ht 165.1 cm; Wt 76.7 kg
[~2023-07-14 15:45] MED LIST changes: -CARB100C3 PO; +CARB200T4 PO; +DULO1CAP5 PO; -DULO20CA PO; -KEP500T PO; +LEVE100020 PO
[2023-07-14] MEDS ORDERED: ACETAMINOPHEN 500 MG TAB PO PRN (16:00)
[2023-07-14] MEDS ORDERED: NITROGLYCERIN 0.4 MG SL TAB SL PRN (16:00)
[2023-07-14] MEDS ORDERED: ONDANSETRON HCL 4 MG/2 ML VIAL IV PRN (16:00)
[2023-07-14] MEDS ORDERED: HYDROcodone-ACET 5/325MG TAB PO PRN (16:00)
[2023-07-14] MEDS ORDERED: MORPHINE SULFATE INJ 2 MG/ml SYRG IV PRN ×2 (16:00)
[2023-07-14] MEDS: Glucerna Carbsteady SHAKE Vanilla 8oz PO SCH ×2 (18:00→21:52)
[2023-07-14] MEDS ORDERED: LITHIUM CARBONATE PO SCH (18:00)
[2023-07-14 20:00] VITALS: RESP 18; O2SAT 94
[2023-07-14] MEDS: AMPICILLIN SOD 2GM INJ 2 GM in SODIUM CHL 0.9% 100 ML IV SCH (21:34)
[2023-07-14] MEDS: DULoxetine HCL 30 MG CAP PO SCH (21:35)
[2023-07-14] MEDS: CARBIDOPA W LEVODOPA CR 25/100mg TABLET PO SCH (21:46)
[2023-07-14 22:00] VITALS: BP 142/61; PULSE 78; RESP 19; TEMP 98.2; O2SAT 97
[2023-07-14] MEDS ORDERED: LITHIUM CARBONATE 300 MG TAB PO SCH (22:00)
[2023-07-14] MEDS ORDERED: DOCUSATE SOD 100 MG CAP PO SCH (22:00)
[2023-07-14] MEDS ORDERED: carBAMazepine 200 MG TAB PO SCH (22:00)
[2023-07-15] VITALS (7 sets, daily range): BP systolic 124–155; BP diastolic 59–85; PULSE 65–83; RESP 17–19; TEMP 98.1–98.9; O2SAT 92–100
[2023-07-15] MEDS: AMPICILLIN SOD 2GM INJ 2 GM in SODIUM CHL 0.9% 100 ML IV SCH ×4 (03:26→20:20)
[2023-07-15 05:08] LABS: Basophils # (auto) 0.1 10 ^3/uL (0-0.2); Basophils % (auto) 0.9 % (0.0-2.0); Eosinophils # (auto) 0.1 10 ^3/uL (0-0.8); Eosinophils % (auto) 1.3 % (0.0-7.0); Hematocrit 29.8 % (41.0-53.0); Hemoglobin 9.4 g/dL (13.5-17.5); Lymphocytes # (auto) 0.7 10 ^3/uL (0.4-5.4); Lymphocytes % (auto) 11.3 % (10.0-50.0); Mean Corpuscular Hemoglobin 30.6 pg (28.0-32.0); Mean Corpuscular Hgb Conc. 31.5 g/dL (32.0-36.0); Mean Corpuscular Volume 97.1 fL (80.0-100.0); Monocytes # (auto) 0.4 10 ^3/uL (0-1.3); Monocytes % (auto) 6.7 % (0.0-12.0); Neutrophils # (auto) 4.6 10 ^3/uL (1.6-8.6); Neutrophils % (auto) 79.8 % (37.0-80.0); Red Blood Cells 3.07 10^6/uL (4.5-5.90); Red Cell Distribution Width 16.7 % (11.8-14.3); White Blood Cell 5.8 10^3/uL (4.4-10.8)
[2023-07-15 05:28] LABS: Alanine Aminotransferase 20 U/L (7-40); Albumin 3.5 g/dL (3.2-4.8); Alkaline Phosphatase 56 U/L (46-116); Anion Gap 9 (5-15); Aspartate Aminotransferase 49 U/L (13-40); BUN/Creatinine Ratio 11.1 (10.0-20.0); Bilirubin, Total 0.2 mg/dL (0.2-1.0); Blood Urea Nitrogen 17 mg/dL (9-23); Calcium 9.1 mg/dL (8.7-10.4); Carbon Dioxide 26 mmol/L (20-30); Chloride 129 mmol/L (98-107); Glucose 85 mg/dL (74-106); Potassium 4.1 mmol/L (3.5-5.1)
[2023-07-15] MEDS: Glucerna Carbsteady SHAKE Vanilla 8oz PO SCH ×4 (06:00→23:10)
[2023-07-15] MEDS: LEVOTHYROXINE SODIUM 88 MCG TAB PO SCH (06:09)
[2023-07-15] MEDS: carBAMazepine 200 MG TAB PO SCH ×3 (06:09→23:10)
[2023-07-15] MEDS: DULoxetine HCL 30 MG CAP PO SCH ×3 (06:09→23:09)
[2023-07-15 06:11] LABS: Sodium 164 mmol/L (136-145)
[2023-07-15] MEDS: CARBIDOPA W LEVODOPA CR 25/100mg TABLET PO SCH ×3 (06:11→23:09)
[2023-07-15] MEDS ORDERED: D5W 5% 1,000 ML IV SCH (09:30)
[2023-07-15] MEDS: LITHIUM CARBONATE 300 MG TAB PO SCH ×2 (10:24→23:10)
[2023-07-15] MEDS: ATORVASTATIN 20 MG TAB PO SCH (10:24)
[2023-07-15] MEDS: FREE WATER GT SCH ×4 (10:25→23:22)
[2023-07-15] MEDS: D5W 5% 1,000 ML IV SCH ×2 (13:48→20:29)
[2023-07-15] MEDS ORDERED: SODIUM CHLORIDE 0.9% 1,000 ML IV ONE (15:45)
[2023-07-16] VITALS (8 sets, daily range): BP systolic 110–131; BP diastolic 57–65; PULSE 66–76; RESP 16–20; TEMP 97.9–98.7; O2SAT 91–98
[2023-07-16] MEDS: FREE WATER GT SCH ×6 (02:40→21:07)
[2023-07-16] MEDS: AMPICILLIN SOD 2GM INJ 2 GM in SODIUM CHL 0.9% 100 ML IV SCH ×4 (03:24→21:05)
[2023-07-16 05:36] LABS: Basophils # (auto) 0.1 10 ^3/uL (0-0.2); Monocytes # (auto) 0.5 10 ^3/uL (0-1.3)
[2023-07-16 05:40] LABS: Anion Gap 7 (5-15); Basophils % (auto) 0.8 % (0.0-2.0); Carbon Dioxide 25 mmol/L (20-30); Chloride 123 mmol/L (98-107); Eosinophils # (auto) 0.2 10 ^3/uL (0-0.8); Eosinophils % (auto) 2.6 % (0.0-7.0); Hematocrit 25.9 % (41.0-53.0); Hemoglobin 8.2 g/dL (13.5-17.5); Lymphocytes # (auto) 0.7 10 ^3/uL (0.4-5.4); Lymphocytes % (auto) 10.2 % (10.0-50.0); Mean Corpuscular Hemoglobin 30.6 pg (28.0-32.0); Mean Corpuscular Hgb Conc. 31.8 g/dL (32.0-36.0); Mean Corpuscular Volume 96.3 fL (80.0-100.0); Monocytes % (auto) 7.4 % (0.0-12.0); Potassium 3.4 mmol/L (3.5-5.1); Red Blood Cells 2.69 10^6/uL (4.5-5.90); Red Cell Distribution Width 16.3 % (11.8-14.3); White Blood Cell 6.4 10^3/uL (4.4-10.8)
[2023-07-16 05:41] LABS: Calcium 8.7 mg/dL (8.7-10.4)
[2023-07-16 05:46] LABS: BUN/Creatinine Ratio 8.7 (10.0-20.0); Blood Urea Nitrogen 12 mg/dL (9-23); Glucose 94 mg/dL (74-106)
[2023-07-16 06:07] LABS: Sodium 155 mmol/L (136-145)
[2023-07-16] MEDS: LEVOTHYROXINE SODIUM 88 MCG TAB PO SCH (06:08)
[2023-07-16] MEDS: carBAMazepine 200 MG TAB PO SCH ×3 (06:08→21:06)
[2023-07-16] MEDS: DULoxetine HCL 30 MG CAP PO SCH ×3 (06:08→21:06)
[2023-07-16] MEDS: D5W 5% 1,000 ML IV SCH ×3 (06:08→22:18)
[2023-07-16] MEDS: Glucerna Carbsteady SHAKE Vanilla 8oz PO SCH ×4 (06:08→21:07)
[2023-07-16] MEDS: CARBIDOPA W LEVODOPA CR 25/100mg TABLET PO SCH ×3 (09:10→21:06)
[2023-07-16] MEDS: ATORVASTATIN 20 MG TAB PO SCH (09:32)
[2023-07-16] MEDS: LITHIUM CARBONATE 300 MG TAB PO SCH ×2 (09:32→21:24)
[2023-07-16] MEDS: DOCUSATE ORAL LIQUID 100 MG/10 ML UD GT SCH (09:32)
[2023-07-17] VITALS (8 sets, daily range): BP systolic 118–132; BP diastolic 61–84; PULSE 66–75; RESP 16–18; TEMP 97.8–99.2; O2SAT 94–100
[2023-07-17] MEDS: FREE WATER GT SCH ×6 (02:13→23:07)
[2023-07-17] MEDS: AMPICILLIN SOD 2GM INJ 2 GM in SODIUM CHL 0.9% 100 ML IV SCH ×4 (02:13→21:58)
[2023-07-17] MEDS: carBAMazepine 200 MG TAB PO SCH ×3 (05:33→21:51)
[2023-07-17] MEDS: DULoxetine HCL 30 MG CAP PO SCH ×3 (05:33→21:51)
[2023-07-17] MEDS: LEVOTHYROXINE SODIUM 88 MCG TAB PO SCH (05:34)
[2023-07-17] MEDS: Glucerna Carbsteady SHAKE Vanilla 8oz PO SCH ×4 (06:00→21:51)
[2023-07-17 06:05] LABS: Basophils # (auto) 0.1 10 ^3/uL (0-0.2); Eosinophils # (auto) 0.2 10 ^3/uL (0-0.8); Eosinophils % (auto) 2.8 % (0.0-7.0); Hematocrit 26.6 % (41.0-53.0); Hemoglobin 8.6 g/dL (13.5-17.5); Lymphocytes # (auto) 1.1 10 ^3/uL (0.4-5.4); Lymphocytes % (auto) 18.1 % (10.0-50.0); Mean Corpuscular Hemoglobin 30.6 pg (28.0-32.0); Mean Corpuscular Hgb Conc. 32.3 g/dL (32.0-36.0); Mean Corpuscular Volume 94.9 fL (80.0-100.0); Monocytes # (auto) 0.4 10 ^3/uL (0-1.3); Neutrophils # (auto) 4.4 10 ^3/uL (1.6-8.6); Neutrophils % (auto) 71.1 % (37.0-80.0); White Blood Cell 6.2 10^3/uL (4.4-10.8)
[2023-07-17 06:13] LABS: Anion Gap 9 (5-15); Carbon Dioxide 23 mmol/L (20-30); Chloride 119 mmol/L (98-107); Potassium 3.6 mmol/L (3.5-5.1); Sodium 151 mmol/L (136-145)
[2023-07-17 06:19] LABS: BUN/Creatinine Ratio 7.4 (10.0-20.0); Blood Urea Nitrogen 9 mg/dL (9-23); Glucose 96 mg/dL (74-106)
[2023-07-17 06:37] LABS: Calcium 8.4 mg/dL (8.7-10.4)
[2023-07-17] MEDS: CARBIDOPA W LEVODOPA CR 25/100mg TABLET PO SCH ×3 (06:48→21:51)
[2023-07-17] MEDS: ATORVASTATIN 20 MG TAB PO SCH (09:33)
[2023-07-17] MEDS: LITHIUM CARBONATE 300 MG TAB PO SCH ×2 (09:33→21:51)
[2023-07-17] MEDS: DOCUSATE ORAL LIQUID 100 MG/10 ML UD GT SCH (09:33)
[2023-07-17] MEDS: D5W 5% 1,000 ML IV SCH (13:24)
[2023-07-18] VITALS (8 sets, daily range): BP systolic 118–133; BP diastolic 55–93; PULSE 64–76; RESP 16–19; TEMP 98.1–99.8; O2SAT 94–97
[2023-07-18] MEDS: D5W 5% 1,000 ML IV SCH ×3 (00:55→17:25)
[2023-07-18] MEDS: FREE WATER GT SCH ×6 (02:21→21:44)
[2023-07-18] MEDS: AMPICILLIN SOD 2GM INJ 2 GM in SODIUM CHL 0.9% 100 ML IV SCH ×2 (02:28→08:32)
[2023-07-18] MEDS: LEVOTHYROXINE SODIUM 88 MCG TAB PO SCH (05:50)
[2023-07-18] MEDS: CARBIDOPA W LEVODOPA CR 25/100mg TABLET PO SCH ×3 (05:50→21:36)
[2023-07-18] MEDS: DULoxetine HCL 30 MG CAP PO SCH ×3 (05:50→21:36)
[2023-07-18] MEDS: carBAMazepine 200 MG TAB PO SCH ×3 (05:50→21:36)
[2023-07-18] MEDS: Glucerna Carbsteady SHAKE Vanilla 8oz PO SCH ×4 (05:51→21:44)
[2023-07-18 06:52] LABS: Chloride 118 mmol/L (98-107); Potassium 3.6 mmol/L (3.5-5.1); Sodium 149 mmol/L (136-145)
[2023-07-18 06:53] LABS: Anion Gap 9 (5-15); Calcium 8.2 mg/dL (8.7-10.4); Carbon Dioxide 22 mmol/L (20-30)
[2023-07-18 06:58] LABS: BUN/Creatinine Ratio 7.2 (10.0-20.0); Blood Urea Nitrogen 8 mg/dL (9-23); Glucose 107 mg/dL (74-106)
[2023-07-18] MEDS: ATORVASTATIN 20 MG TAB PO SCH (09:34)
[2023-07-18] MEDS: DOCUSATE ORAL LIQUID 100 MG/10 ML UD GT SCH (09:34)
[2023-07-18] MEDS: LITHIUM CARBONATE 300 MG TAB PO SCH ×2 (09:35→21:44)
[2023-07-18 12:00] LABS: Urine Bacteria FEW /hpf (None Seen); Urine Blood Negative /uL (Negative); Urine Clarity Clear (Clear); Urine Color Colorless (Yellow); Urine Protein, UAD Negative (Negative); Urine Specific Gravity 1.003 (1.001-1.035); Urine Urobilinogen Normal (Negative); Urine WBC <1 /hpf (0 - 3)
[2023-07-19] MEDS: FREE WATER GT SCH ×4 (01:58→13:34)
[2023-07-19] MEDS: D5W 5% 1,000 ML IV SCH ×2 (01:58→13:34)
[2023-07-19 05:00] VITALS: BP 121/73; PULSE 71; RESP 19; TEMP 97.9; O2SAT 95
[2023-07-19] MEDS: carBAMazepine 200 MG TAB PO SCH ×2 (05:34→13:30)
[2023-07-19] MEDS: CARBIDOPA W LEVODOPA CR 25/100mg TABLET PO SCH ×2 (05:34→13:30)
[2023-07-19] MEDS: DULoxetine HCL 30 MG CAP PO SCH ×2 (05:34→13:30)
[2023-07-19] MEDS: LEVOTHYROXINE SODIUM 88 MCG TAB PO SCH (05:35)
[2023-07-19] MEDS: Glucerna Carbsteady SHAKE Vanilla 8oz PO SCH ×2 (05:35→13:29)
[2023-07-19 05:56] LABS: Anion Gap 6 (5-15); Calcium 8.8 mg/dL (8.7-10.4); Carbon Dioxide 25 mmol/L (20-30); Chloride 117 mmol/L (98-107); Potassium 4.2 mmol/L (3.5-5.1); Sodium 148 mmol/L (136-145)
[2023-07-19 06:02] LABS: BUN/Creatinine Ratio 8.2 (10.0-20.0); Blood Urea Nitrogen 9 mg/dL (9-23); Glucose 102 mg/dL (74-106)
[2023-07-19 08:20] VITALS: RESP 18; O2SAT 94
[2023-07-19 08:35] VITALS: BP 140/61; PULSE 66; RESP 18; TEMP 98.5; O2SAT 97
[2023-07-19] MEDS: DOCUSATE ORAL LIQUID 100 MG/10 ML UD GT SCH (09:07)
[2023-07-19] MEDS ORDERED: levoFLOXacin 500 MG TAB PO SCH (10:00)
[2023-07-19] MEDS: ATORVASTATIN 20 MG TAB PO SCH (10:40)
[2023-07-19] MEDS: LITHIUM CARBONATE 300 MG TAB PO SCH (10:40)
[2023-07-19 12:35] VITALS: BP 141/58; PULSE 76; RESP 17; TEMP 97.6; O2SAT 97
[2023-07-19 15:35] VITALS: TEMP 36.4
[2023-07-19 16:30] VITALS: BP_SYST 109; BP_SYST 123; BP_DIAS 72; BP_DIAS 74; PULSE 103; PULSE 76; RESP 17; RESP 18; TEMP 98.4; TEMP 99.8; O2SAT 96; O2SAT 99
== END 2023-07-19 18:30 | disposition home health service (06) | DRG 871 ==
LOC: EAST 18:00
PROVIDERS: ADMIT Nurse Practitioner Acute Care; ATTEND Nurse Practitioner Acute Care
DX: A41.9 Sepsis, unspecified organism (principal); G93.41 Metabolic encephalopathy; J15.0 Pneumonia due to Klebsiella pneumoniae; J96.01 Acute respiratory failure with hypoxia; N17.0 Acute kidney failure with tubular necrosis; E87.0 Hyperosmolality and hypernatremia; E87.1 Hypo-osmolality and hyponatremia; I13.0 Hypertensive heart and chronic kidney disease with heart failure and stage 1 through stage 4 chronic kidney disease, or unspecified chronic kidney disease; B95.2 Enterococcus as the cause of diseases classified elsewhere; E78.5 Hyperlipidemia, unspecified; E87.6 Hypokalemia; N18.2 Chronic kidney disease, stage 2 (mild); I50.9 Heart failure, unspecified; G20.A1 Parkinson's disease without dyskinesia, without mention of fluctuations; G40.909 Epilepsy, unspecified, not intractable, without status epilepticus; J43.9 Emphysema, unspecified; N30.90 Cystitis, unspecified without hematuria; K83.8 Other specified diseases of biliary tract; R65.20 Severe sepsis without septic shock; I25.2 Old myocardial infarction; Z88.8 Allergy status to other drugs, medicaments and biological substances; Z82.0 Family history of epilepsy and other diseases of the nervous system; Z80.0 Family history of malignant neoplasm of digestive organs; Z81.1 Family history of alcohol abuse and dependence; Z83.42 Family history of familial hypercholesterolemia; Z95.5 Presence of coronary angioplasty implant and graft
CPT/HCPCS: 36415; 71045; 80048; 80053; 80156; 80178; 81001; 83930; 83935; 84295; 85025; 97110; 97116; 97163; 97530; G0378; J7042

== ENCOUNTER 2023-07-22 02:23 | Inpatient (IN) | payer MEDICARE, MEDICAID ==
[~2023-07-22] VITALS: Ht 175.3 cm; Wt 98.5 kg
[2023-07-22 02:40] VITALS: PULSE 115; RESP 26; O2SAT 97
[2023-07-22 03:48] LABS: Basophils # (auto) 0 10 ^3/uL (0-0.2); Basophils % (auto) 0.4 % (0.0-2.0); Eosinophils # (auto) 0 10 ^3/uL (0-0.8); Eosinophils % (auto) 0.2 % (0.0-7.0); Hematocrit 30.8 % (41.0-53.0); Lymphocytes # (auto) 0.3 10 ^3/uL (0.4-5.4); Lymphocytes % (auto) 4.1 % (10.0-50.0); Mean Corpuscular Hemoglobin 31.3 pg (28.0-32.0); Mean Corpuscular Hgb Conc. 32.4 g/dL (32.0-36.0); Mean Corpuscular Volume 96.5 fL (80.0-100.0); Monocytes # (auto) 0.6 10 ^3/uL (0-1.3); Monocytes % (auto) 6.9 % (0.0-12.0); Neutrophils # (auto) 7.3 10 ^3/uL (1.6-8.6); Neutrophils % (auto) 88.4 % (37.0-80.0); Nucleated Red Blood Cells % 0.1 %; Red Blood Cells 3.19 10^6/uL (4.5-5.90); Red Cell Distribution Width 16.8 % (11.8-14.3); White Blood Cell 8.3 10^3/uL (4.4-10.8)
[2023-07-22 03:51] LABS: Alanine Aminotransferase 14 U/L (7-40); Albumin 4.2 g/dL (3.2-4.8); Alkaline Phosphatase 62 U/L (46-116); Anion Gap 9 (5-15); Aspartate Aminotransferase 26 U/L (13-40); BUN/Creatinine Ratio 7.7 (10.0-20.0); Blood Urea Nitrogen 12 mg/dL (9-23); Calcium 9.5 mg/dL (8.7-10.4); Carbon Dioxide 25 mmol/L (20-30); Chloride 113 mmol/L (98-107); Glucose 120 mg/dL (74-106); Potassium 4.1 mmol/L (3.5-5.1); Sodium 147 mmol/L (136-145)
[2023-07-22 03:52] LABS: Bilirubin, Total 0.2 mg/dL (0.2-1.0); Total Protein 7.4 g/dL (5.7-8.2)
[2023-07-22 04:12] LABS: Blood Alcohol < 3.0 mg/dL (<10)
[2023-07-22 04:25] LABS: INR 1.01 (0.9-1.15); Prothrombin Time 10.6 sec (9.3-11.8)
[2023-07-22] MEDS ORDERED: SODIUM CHLORIDE 0.9% 5,000 ML IV ONE (05:00)
[2023-07-22] MEDS ORDERED: PIPERACILLIN-TAZO 4.5GM 100 ML IV ONE (05:00)
[2023-07-22] MEDS ORDERED: VANCOMYCIN 1GM/200ML 200 ML IV ONE (05:00)
[2023-07-22] MEDS ORDERED: DOCUSATE SOD 100 MG CAP PO PRN (05:15)
[2023-07-22] MEDS ORDERED: ONDANSETRON HCL 4 MG/2 ML VIAL IV PRN (05:15)
[2023-07-22] MEDS ORDERED: MAALOX PLUS or MAALOX 30 ML PO PRN (05:15)
[2023-07-22] MEDS ORDERED: SOD CHL 0.45% 1,000 ML IV ONE (05:15)
[2023-07-22 05:18] LABS: Base Excess 0.3 mmol/L (-2.0-2.0)
[2023-07-22] MEDS ORDERED: AMIODARONE HCL (50 MG/ ML) 3 ML VIAL IV ONE (05:54)
[2023-07-22] MEDS ORDERED: AMIODARONE BOLUS KIT 100 ML IV ONE (06:00)
[2023-07-22 06:54] LABS: Urine Epithelial Cast None Seen /hpf (<5)
[2023-07-22 07:20] LABS: Urine Bacteria NONE SEEN /hpf (None Seen); Urine Blood Negative /uL (Negative); Urine Clarity HAZY (Clear); Urine Color Yellow (Yellow); Urine Protein, UAD Negative (Negative); Urine Specific Gravity 1.009 (1.001-1.035); Urine Urobilinogen Normal (Negative); Urine WBC 1 /hpf (0 - 3)
[2023-07-22 07:54] LABS: COVID19 ANTIGEN SOFIA FIA NEGATIVE (NEGATIVE); Rapid Influenza A Negative (Negative); Rapid Influenza B Negative (Negative)
[2023-07-22 09:00] VITALS: BP 141/69; PULSE 97; RESP 20; TEMP 101.3; O2SAT 95
[2023-07-22] MEDS: ACETAMINOPHEN 325 MG TAB PO PRN ×2 (11:21→12:31)
[2023-07-22 13:00] VITALS: BP 127/51; PULSE 102; RESP 22; TEMP 102.9; O2SAT 94
[2023-07-22] MEDS: levETIRAcetam 500 mg/100ml 100 ML IV SCH (13:53)
[2023-07-22 16:54] VITALS: BP 133/61; PULSE 89; RESP 20; TEMP 99.9; O2SAT 95
[2023-07-22 20:00] VITALS: BP 127/65; PULSE 86; RESP 19; TEMP 98.3; O2SAT 100
[2023-07-22] MEDS ORDERED: VANCOMYCIN PER PHARMACY 0 MG IV SCH (20:30)
[2023-07-22] MEDS: PIPERACILLIN-TAZOB 3.375GM 100 ML IV SCH (21:48)
[2023-07-22 21:50] VITALS: BP 127/65; PULSE 86; RESP 19; TEMP 98.3; O2SAT 100
[2023-07-23 05:00] VITALS: BP 146/70; PULSE 82; RESP 20; TEMP 98.4; O2SAT 100
[2023-07-23] MEDS: PIPERACILLIN-TAZOB 3.375GM 100 ML IV SCH ×3 (06:07→20:45)
[2023-07-23 06:10] LABS: Basophils # (auto) 0 10 ^3/uL (0-0.2); Eosinophils # (auto) 0 10 ^3/uL (0-0.8); Lymphocytes # (auto) 0.6 10 ^3/uL (0.4-5.4); Neutrophils # (auto) 3.9 10 ^3/uL (1.6-8.6); White Blood Cell 5.3 10^3/uL (4.4-10.8)
[2023-07-23 06:12] LABS: Basophils % (auto) 0.6 % (0.0-2.0); Hematocrit 26.6 % (41.0-53.0); Hemoglobin 8.3 g/dL (13.5-17.5); Lymphocytes % (auto) 11.2 % (10.0-50.0); Mean Corpuscular Hemoglobin 30.3 pg (28.0-32.0); Mean Corpuscular Hgb Conc. 31.1 g/dL (32.0-36.0); Mean Corpuscular Volume 97.3 fL (80.0-100.0); Monocytes # (auto) 0.8 10 ^3/uL (0-1.3); Monocytes % (auto) 14.5 % (0.0-12.0); Neutrophils % (auto) 73.7 % (37.0-80.0); Red Blood Cells 2.74 10^6/uL (4.5-5.90)
[2023-07-23 06:22] LABS: Anion Gap 5 (5-15); Carbon Dioxide 27 mmol/L (20-30); Chloride 122 mmol/L (98-107); Potassium 4.7 mmol/L (3.5-5.1)
[2023-07-23 06:23] LABS: Calcium 9.2 mg/dL (8.7-10.4)
[2023-07-23 06:27] LABS: Glucose 120 mg/dL (74-106)
[2023-07-23 06:28] LABS: BUN/Creatinine Ratio 13.5 (10.0-20.0); Blood Urea Nitrogen 19 mg/dL (9-23); Sodium 154 mmol/L (136-145)
[2023-07-23 08:00] VITALS: BP 127/65; PULSE 86; RESP 18; RESP 19; TEMP 98.3; O2SAT 100
[2023-07-23] MEDS: levETIRAcetam 500 mg/100ml 100 ML IV SCH (08:29)
[2023-07-23 09:00] VITALS: BP 139/77; PULSE 79; RESP 18; TEMP 98.9; O2SAT 100
[2023-07-23] MEDS ORDERED: VANCOMYCIN 1GM/200ML 200 ML IV ONE (13:00)
[2023-07-23 16:11] LABS: Basophils # (auto) 0 10 ^3/uL (0-0.2); Basophils % (auto) 0.7 % (0.0-2.0); Eosinophils # (auto) 0 10 ^3/uL (0-0.8); Hematocrit 25.4 % (41.0-53.0); Lymphocytes # (auto) 0.8 10 ^3/uL (0.4-5.4); Lymphocytes % (auto) 13.9 % (10.0-50.0); Mean Corpuscular Hemoglobin 30.1 pg (28.0-32.0); Mean Corpuscular Hgb Conc. 31.4 g/dL (32.0-36.0); Mean Corpuscular Volume 95.8 fL (80.0-100.0); Monocytes # (auto) 0.9 10 ^3/uL (0-1.3); Monocytes % (auto) 15.2 % (0.0-12.0); Neutrophils # (auto) 3.9 10 ^3/uL (1.6-8.6); Neutrophils % (auto) 70.2 % (37.0-80.0); Nucleated Red Blood Cells % 0.1 %; Red Blood Cells 2.66 10^6/uL (4.5-5.90); White Blood Cell 5.6 10^3/uL (4.4-10.8)
[2023-07-23 16:16] LABS: Chloride 121 mmol/L (98-107); Potassium 4.4 mmol/L (3.5-5.1); Sodium 154 mmol/L (136-145)
[2023-07-23 16:17] LABS: Anion Gap 8 (5-15); Calcium 8.9 mg/dL (8.7-10.4); Carbon Dioxide 25 mmol/L (20-30)
[2023-07-23 16:22] LABS: BUN/Creatinine Ratio 17.6 (10.0-20.0); Blood Urea Nitrogen 23 mg/dL (9-23); Glucose 96 mg/dL (74-106); Magnesium 2.4 mg/dL (1.6-2.6)
[2023-07-23 17:00] VITALS: BP 150/69; PULSE 87; RESP 17; TEMP 97.2; O2SAT 99
[2023-07-23 20:00] VITALS: BP 127/67; PULSE 83; RESP 18; TEMP 98.8; O2SAT 100
[2023-07-23 22:00] VITALS: BP 127/67; PULSE 83; RESP 18; TEMP 98.8; O2SAT 100
[2023-07-24] VITALS (9 sets, daily range): BP systolic 113–148; BP diastolic 56–65; PULSE 78–96; RESP 16–20; TEMP 98.3–98.4; O2SAT 97–100
[2023-07-24] MEDS: PIPERACILLIN-TAZOB 3.375GM 100 ML IV SCH ×3 (06:00→21:31)
[2023-07-24 06:23] LABS: Basophils # (auto) 0 10 ^3/uL (0-0.2); Eosinophils # (auto) 0 10 ^3/uL (0-0.8); Hemoglobin 8.2 g/dL (13.5-17.5); Lymphocytes # (auto) 0.7 10 ^3/uL (0.4-5.4); Neutrophils # (auto) 3.7 10 ^3/uL (1.6-8.6); White Blood Cell 5.1 10^3/uL (4.4-10.8)
[2023-07-24 06:25] LABS: Basophils % (auto) 0.7 % (0.0-2.0); Eosinophils % (auto) 0.2 % (0.0-7.0); Hematocrit 26.3 % (41.0-53.0); Lymphocytes % (auto) 13.6 % (10.0-50.0); Mean Corpuscular Hemoglobin 30.3 pg (28.0-32.0); Mean Corpuscular Hgb Conc. 31.1 g/dL (32.0-36.0); Mean Corpuscular Volume 97.4 fL (80.0-100.0); Monocytes # (auto) 0.7 10 ^3/uL (0-1.3); Monocytes % (auto) 13.1 % (0.0-12.0); Neutrophils % (auto) 72.4 % (37.0-80.0); Red Cell Distribution Width 16.9 % (11.8-14.3)
[2023-07-24 06:40] LABS: Alanine Aminotransferase 23 U/L (7-40); Alkaline Phosphatase 44 U/L (46-116); Anion Gap 9 (5-15); Aspartate Aminotransferase 33 U/L (13-40); BUN/Creatinine Ratio 19.5 (10.0-20.0); Blood Urea Nitrogen 25 mg/dL (9-23); Carbon Dioxide 23 mmol/L (20-30); Chloride 122 mmol/L (98-107); Glucose 91 mg/dL (74-106); Potassium 4.2 mmol/L (3.5-5.1); Sodium 154 mmol/L (136-145)
[2023-07-24 06:41] LABS: Albumin 3.5 g/dL (3.2-4.8)
[2023-07-24 06:42] LABS: Bilirubin, Total < 0.2 mg/dL (0.2-1.0); Total Protein 6.1 g/dL (5.7-8.2)
[2023-07-24] MEDS: levETIRAcetam 500 mg/100ml 100 ML IV SCH (10:01)
[2023-07-24] MEDS: PANTOPRAZOLE 40 MG/10 ML VIAL INJ IV SCH ×2 (10:01→21:31)
[2023-07-24 11:09] LABS: % Iron Saturation 12.6 % (20-55)
[2023-07-24] MEDS: THIAMINE 100mg/ml INJ (200mg/2ml VIAL) IV SCH (11:11)
[2023-07-24] MEDS: D5W 5% 1,000 ML IV SCH (11:11)
[2023-07-24] MEDS: FOLIC ACID 1 MG in D5W 5% 50 ML INJ SCH (12:36)
[2023-07-24] MEDS: VANCOMYCIN 1GM/200ML 200 ML IV SCH (13:00)
[2023-07-24] MEDS: ATORVASTATIN 20 MG TAB PO SCH (22:13)
[2023-07-24] MEDS: carBAMazepine 200 MG TAB PO SCH (22:14)
[2023-07-25] MEDS: D5W 5% 1,000 ML IV SCH (02:37)
[2023-07-25] MEDS: levETIRAcetam 500 mg/100ml 100 ML IV SCH ×4 (05:33→21:21)
[2023-07-25] MEDS: carBAMazepine 200 MG TAB PO SCH ×3 (05:44→21:22)
[2023-07-25 06:01] LABS: Basophils # (auto) 0 10 ^3/uL (0-0.2); Eosinophils # (auto) 0 10 ^3/uL (0-0.8); Hemoglobin 7.8 g/dL (13.5-17.5); Lymphocytes # (auto) 0.8 10 ^3/uL (0.4-5.4); Monocytes # (auto) 0.5 10 ^3/uL (0-1.3); Neutrophils # (auto) 2.1 10 ^3/uL (1.6-8.6); Red Cell Distribution Width 16.9 % (11.8-14.3); White Blood Cell 3.5 10^3/uL (4.4-10.8)
[2023-07-25 06:04] LABS: Basophils % (auto) 1.1 % (0.0-2.0); Eosinophils % (auto) 1.3 % (0.0-7.0); Lymphocytes % (auto) 23.1 % (10.0-50.0); Mean Corpuscular Hemoglobin 30.1 pg (28.0-32.0); Mean Corpuscular Hgb Conc. 31.2 g/dL (32.0-36.0); Mean Corpuscular Volume 96.6 fL (80.0-100.0); Monocytes % (auto) 14.9 % (0.0-12.0); Neutrophils % (auto) 59.6 % (37.0-80.0); Nucleated Red Blood Cells % 0.1 %; Red Blood Cells 2.59 10^6/uL (4.5-5.90)
[2023-07-25 06:09] LABS: Anion Gap 9 (5-15); Carbon Dioxide 23 mmol/L (20-30); Chloride 121 mmol/L (98-107); Potassium 3.4 mmol/L (3.5-5.1); Sodium 153 mmol/L (136-145)
[2023-07-25 06:15] LABS: BUN/Creatinine Ratio 19.1 (10.0-20.0); Blood Urea Nitrogen 25 mg/dL (9-23); Glucose 86 mg/dL (74-106)
[2023-07-25] MEDS: PIPERACILLIN-TAZOB 3.375GM 100 ML IV SCH ×4 (06:30→22:23)
[2023-07-25 08:00] VITALS: RESP 20
[2023-07-25 09:00] VITALS: BP 150/69; PULSE 82; RESP 18; O2SAT 99
[2023-07-25] MEDS: THIAMINE 100mg/ml INJ (200mg/2ml VIAL) IV SCH (09:15)
[2023-07-25] MEDS: FOLIC ACID 1 MG in D5W 5% 50 ML INJ SCH (09:15)
[2023-07-25] MEDS: CLOPIDOGREL BISULFATE 75 MG TAB PO SCH (09:16)
[2023-07-25] MEDS: PANTOPRAZOLE 40 MG/10 ML VIAL INJ IV SCH ×2 (09:16→21:21)
[2023-07-25] MEDS: ACETAMINOPHEN 325 MG TAB PO PRN ×2 (09:48→16:31)
[2023-07-25] MEDS: POTASSIUM CHLORIDE 20 MEQ in D5W 5% 1,000 ML IV SCH ×2 (12:54→19:35)
[2023-07-25 13:00] VITALS: BP_SYST 116; BP_SYST 135; BP_DIAS 67; BP_DIAS 71; PULSE 62; PULSE 70; RESP 17; TEMP 98; O2SAT 100; O2SAT 99
[2023-07-25 13:11] LABS: Creatinine, Urine 39.83 mg/dL (30.0-125.0)
[2023-07-25] MEDS: VANCOMYCIN 1GM/200ML 200 ML IV SCH (13:33)
[2023-07-25 13:47] LABS: Urine Protein/Creatinine Ratio 1.21
[2023-07-25 17:00] VITALS: BP 116/67; PULSE 62; RESP 17; O2SAT 100
[2023-07-25 20:00] VITALS: PULSE 75; PULSE 76; RESP 16
[2023-07-25] MEDS: ATORVASTATIN 20 MG TAB PO SCH (21:22)
[2023-07-25 22:00] VITALS: BP 114/55; PULSE 75; RESP 18; TEMP 98.1; O2SAT 99
[2023-07-26] VITALS (8 sets, daily range): BP systolic 96–114; BP diastolic 48–62; PULSE 60–71; RESP 16–19; TEMP 97.8–98.6; O2SAT 95–100
[2023-07-26] MEDS: POTASSIUM CHLORIDE 20 MEQ in D5W 5% 1,000 ML IV SCH ×3 (02:42→22:31)
[2023-07-26] MEDS: ACETAMINOPHEN 325 MG TAB PO PRN ×2 (02:47→22:11)
[2023-07-26] MEDS: carBAMazepine 200 MG TAB PO SCH ×3 (05:37→22:10)
[2023-07-26] MEDS: PIPERACILLIN-TAZOB 3.375GM 100 ML IV SCH ×3 (05:37→22:31)
[2023-07-26] MEDS: levETIRAcetam 500 mg/100ml 100 ML IV SCH ×3 (05:38→22:11)
[2023-07-26] MEDS: PANTOPRAZOLE 40 MG/10 ML VIAL INJ IV SCH ×2 (09:04→22:11)
[2023-07-26] MEDS: FOLIC ACID 1 MG in D5W 5% 50 ML INJ SCH (09:05)
[2023-07-26] MEDS: THIAMINE 100mg/ml INJ (200mg/2ml VIAL) IV SCH (09:07)
[2023-07-26] MEDS: CLOPIDOGREL BISULFATE 75 MG TAB PO SCH (09:08)
[2023-07-26] MEDS: VANCOMYCIN 1GM/200ML 200 ML IV SCH (14:21)
[2023-07-26] MEDS: CARBIDOPA W LEVODOPA 25/100mg TABLET PO SCH (22:10)
[2023-07-26] MEDS: ATORVASTATIN 20 MG TAB PO SCH (22:10)
[2023-07-27] VITALS (8 sets, daily range): BP systolic 107–129; BP diastolic 61–69; PULSE 62–76; RESP 16–19; TEMP 97.2–98; O2SAT 93–100
[2023-07-27] MEDS: POTASSIUM CHLORIDE 20 MEQ in D5W 5% 1,000 ML IV SCH ×3 (03:55→20:05)
[2023-07-27 06:13] LABS: Alanine Aminotransferase 10 U/L (7-40); Albumin 3.2 g/dL (3.2-4.8); Alkaline Phosphatase 36 U/L (46-116); Anion Gap 9 (5-15); Aspartate Aminotransferase 33 U/L (13-40); BUN/Creatinine Ratio 9.7 (10.0-20.0); Bilirubin, Total < 0.2 mg/dL (0.2-1.0); Blood Urea Nitrogen 12 mg/dL (9-23); Calcium 8.3 mg/dL (8.5-10.1); Carbon Dioxide 20 mmol/L (20-30); Chloride 116 mmol/L (98-107); Glucose 103 mg/dL (74-106); Potassium 3.8 mmol/L (3.5-5.1); Sodium 145 mmol/L (136-145); Total Protein 5.6 g/dL (5.7-8.2)
[2023-07-27] MEDS: CARBIDOPA W LEVODOPA 25/100mg TABLET PO SCH ×3 (06:24→22:06)
[2023-07-27] MEDS: carBAMazepine 200 MG TAB PO SCH ×3 (06:24→22:06)
[2023-07-27] MEDS: levETIRAcetam 500 mg/100ml 100 ML IV SCH ×3 (06:25→21:58)
[2023-07-27] MEDS: PIPERACILLIN-TAZOB 3.375GM 100 ML IV SCH ×3 (06:35→22:16)
[2023-07-27] MEDS: PANTOPRAZOLE 40 MG/10 ML VIAL INJ IV SCH ×2 (10:02→22:03)
[2023-07-27] MEDS: CLOPIDOGREL BISULFATE 75 MG TAB PO SCH (10:02)
[2023-07-27] MEDS: THIAMINE 100mg/ml INJ (200mg/2ml VIAL) IV SCH (10:02)
[2023-07-27] MEDS: FOLIC ACID 1 MG in D5W 5% 50 ML INJ SCH (10:03)
[2023-07-27 12:00] LABS: Basophils # (auto) 0 10 ^3/uL (0-0.2); Eosinophils # (auto) 0.2 10 ^3/uL (0-0.8); Nucleated Red Blood Cells % 0.2 %
[2023-07-27 12:02] LABS: Basophils % (auto) 0.8 % (0.0-2.0); Eosinophils % (auto) 4.1 % (0.0-7.0); Hematocrit 29.9 % (41.0-53.0); Lymphocytes # (auto) 1.6 10 ^3/uL (0.4-5.4); Lymphocytes % (auto) 27.6 % (10.0-50.0); Mean Corpuscular Hemoglobin 30.3 pg (28.0-32.0); Mean Corpuscular Hgb Conc. 30.1 g/dL (32.0-36.0); Mean Corpuscular Volume 100.6 fL (80.0-100.0); Monocytes # (auto) 0.5 10 ^3/uL (0-1.3); Monocytes % (auto) 9.3 % (0.0-12.0); Neutrophils # (auto) 3.4 10 ^3/uL (1.6-8.6); Neutrophils % (auto) 58.2 % (37.0-80.0); Red Blood Cells 2.97 10^6/uL (4.5-5.90); Red Cell Distribution Width 17.7 % (11.8-14.3); White Blood Cell 5.8 10^3/uL (4.4-10.8)
[2023-07-27 12:22] LABS: Chloride 118 mmol/L (98-107); Sodium 146 mmol/L (136-145)
[2023-07-27 12:23] LABS: Anion Gap 8 (5-15); Calcium 8.6 mg/dL (8.5-10.1); Carbon Dioxide 20 mmol/L (20-30)
[2023-07-27 12:28] LABS: BUN/Creatinine Ratio 7.8 (10.0-20.0); Blood Urea Nitrogen 9 mg/dL (9-23); Glucose 91 mg/dL (74-106)
[2023-07-27] MEDS: VANCOMYCIN 1GM/200ML 200 ML IV SCH (12:57)
[2023-07-27] MEDS: ATORVASTATIN 20 MG TAB PO SCH (22:06)
[2023-07-27] MEDS: ACETAMINOPHEN 325 MG TAB PO PRN (22:06)
[2023-07-28] VITALS (7 sets, daily range): BP systolic 105–153; BP diastolic 45–115; PULSE 64–89; RESP 16–19; TEMP 97.1–98; O2SAT 91–99
[2023-07-28] MEDS: PIPERACILLIN-TAZOB 3.375GM 100 ML IV SCH ×3 (05:45→21:51)
[2023-07-28] MEDS: POTASSIUM CHLORIDE 20 MEQ in D5W 5% 1,000 ML IV SCH ×2 (05:47→12:40)
[2023-07-28] MEDS: carBAMazepine 200 MG TAB PO SCH ×3 (05:47→21:52)
[2023-07-28] MEDS: levETIRAcetam 500 mg/100ml 100 ML IV SCH ×3 (05:47→21:51)
[2023-07-28] MEDS: CARBIDOPA W LEVODOPA 25/100mg TABLET PO SCH ×3 (05:47→21:52)
[2023-07-28 06:37] LABS: Albumin 3.4 g/dL (3.2-4.8); Alkaline Phosphatase 43 U/L (46-116); Anion Gap 8 (5-15); BUN/Creatinine Ratio 7.3 (10.0-20.0); Blood Urea Nitrogen 8 mg/dL (9-23); Calcium 8.7 mg/dL (8.5-10.1); Carbon Dioxide 20 mmol/L (20-30); Chloride 117 mmol/L (98-107); Glucose 80 mg/dL (74-106); Potassium 4.4 mmol/L (3.5-5.1); Sodium 145 mmol/L (136-145)
[2023-07-28 06:38] LABS: Aspartate Aminotransferase 28 U/L (13-40); Bilirubin, Total 0.2 mg/dL (0.2-1.0)
[2023-07-28 06:44] LABS: Alanine Aminotransferase < 9 U/L (7-40)
[2023-07-28] MEDS: PANTOPRAZOLE 40 MG/10 ML VIAL INJ IV SCH ×2 (09:48→21:51)
[2023-07-28] MEDS: THIAMINE 100mg/ml INJ (200mg/2ml VIAL) IV SCH (09:49)
[2023-07-28] MEDS: FOLIC ACID 1 MG in D5W 5% 50 ML INJ SCH (09:49)
[2023-07-28] MEDS: CLOPIDOGREL BISULFATE 75 MG TAB PO SCH (09:49)
[2023-07-28] MEDS: D5W 5% 1,000 ML IV SCH (17:44)
[2023-07-28] MEDS: ATORVASTATIN 20 MG TAB PO SCH (21:52)
[2023-07-29] VITALS (7 sets, daily range): BP systolic 121–143; BP diastolic 67–79; PULSE 78–97; RESP 16–20; TEMP 98.2–98.9; O2SAT 92–99
[2023-07-29] MEDS: D5W 5% 1,000 ML IV SCH ×3 (03:30→23:30)
[2023-07-29] MEDS: carBAMazepine 200 MG TAB PO SCH ×3 (05:52→22:32)
[2023-07-29] MEDS: levETIRAcetam 500 mg/100ml 100 ML IV SCH ×3 (05:52→22:34)
[2023-07-29] MEDS: CARBIDOPA W LEVODOPA 25/100mg TABLET PO SCH ×3 (05:52→22:32)
[2023-07-29] MEDS: PIPERACILLIN-TAZOB 3.375GM 100 ML IV SCH ×4 (05:52→17:55)
[2023-07-29 07:32] LABS: Alanine Aminotransferase < 9 U/L (7-40); Albumin 3.5 g/dL (3.2-4.8); Alkaline Phosphatase 50 U/L (46-116); Anion Gap 10 (5-15); Aspartate Aminotransferase 19 U/L (13-40); BUN/Creatinine Ratio 11.8 (10.0-20.0); Bilirubin, Total < 0.2 mg/dL (0.2-1.0); Blood Urea Nitrogen 13 mg/dL (9-23); Calcium 8.6 mg/dL (8.7-10.4); Carbon Dioxide 20 mmol/L (20-30); Chloride 117 mmol/L (98-107); Glucose 99 mg/dL (74-106); Potassium 3.7 mmol/L (3.5-5.1); Sodium 147 mmol/L (136-145); Total Protein 6.3 g/dL (5.7-8.2)
[2023-07-29] MEDS: FOLIC ACID 1 MG in D5W 5% 50 ML INJ SCH (10:08)
[2023-07-29] MEDS: PANTOPRAZOLE 40 MG/10 ML VIAL INJ IV SCH ×2 (10:11→22:34)
[2023-07-29] MEDS: CLOPIDOGREL BISULFATE 75 MG TAB PO SCH (10:11)
[2023-07-29] MEDS: THIAMINE 100mg/ml INJ (200mg/2ml VIAL) IV SCH (10:14)
[2023-07-29] MEDS ORDERED: LOPERAMIDE HCL 2 MG CAP/TAB PO PRN (22:15)
[2023-07-29] MEDS: ATORVASTATIN 20 MG TAB PO SCH (22:32)
[2023-07-30] VITALS (7 sets, daily range): BP systolic 109–124; BP diastolic 56–71; PULSE 61–89; RESP 17–20; TEMP 98–98.8; O2SAT 93–100
[2023-07-30] MEDS: D5W 5% 1,000 ML IV SCH ×2 (02:41→22:53)
[2023-07-30] MEDS: PIPERACILLIN-TAZOB 3.375GM 100 ML IV SCH (05:41)
[2023-07-30] MEDS: carBAMazepine 200 MG TAB PO SCH ×3 (05:41→22:32)
[2023-07-30] MEDS: CARBIDOPA W LEVODOPA 25/100mg TABLET PO SCH ×3 (05:41→22:31)
[2023-07-30] MEDS: levETIRAcetam 500 mg/100ml 100 ML IV SCH ×3 (05:41→22:33)
[2023-07-30] MEDS: THIAMINE 100mg/ml INJ (200mg/2ml VIAL) IV SCH (12:25)
[2023-07-30] MEDS: PANTOPRAZOLE 40 MG/10 ML VIAL INJ IV SCH ×2 (12:25→22:31)
[2023-07-30] MEDS: FOLIC ACID 1 MG in D5W 5% 50 ML INJ SCH (12:42)
[2023-07-30] MEDS: CLOPIDOGREL BISULFATE 75 MG TAB PO SCH (12:43)
[2023-07-30] MEDS: cefTRIAXone 1GM/50ML D5W 50 ML IV SCH (15:23)
[2023-07-30] MEDS: ACETAMINOPHEN 325 MG TAB PO PRN (22:31)
[2023-07-30] MEDS: ATORVASTATIN 20 MG TAB PO SCH (22:32)
[2023-07-31 05:00] VITALS: BP 121/69; PULSE 77; RESP 18; O2SAT 97
[2023-07-31] MEDS: CARBIDOPA W LEVODOPA 25/100mg TABLET PO SCH ×3 (05:28→21:31)
[2023-07-31] MEDS: carBAMazepine 200 MG TAB PO SCH ×3 (05:28→21:31)
[2023-07-31] MEDS: levETIRAcetam 500 mg/100ml 100 ML IV SCH ×3 (05:28→21:33)
[2023-07-31] MEDS: D5W 5% 1,000 ML IV SCH ×3 (05:30→22:46)
[2023-07-31 08:15] VITALS: PULSE 86; RESP 18; O2SAT 97
[2023-07-31 09:00] VITALS: BP 140/65; PULSE 83; RESP 18; O2SAT 95
[2023-07-31] MEDS: cefTRIAXone 1GM/50ML D5W 50 ML IV SCH (10:34)
[2023-07-31] MEDS: CLOPIDOGREL BISULFATE 75 MG TAB PO SCH (10:34)
[2023-07-31] MEDS: PANTOPRAZOLE 40 MG/10 ML VIAL INJ IV SCH ×2 (10:35→21:33)
[2023-07-31] MEDS: THIAMINE 100mg/ml INJ (200mg/2ml VIAL) IV SCH (10:35)
[2023-07-31] MEDS: FOLIC ACID 1 MG in D5W 5% 50 ML INJ SCH (10:36)
[2023-07-31 13:00] VITALS: BP 132/66; PULSE 76; RESP 18; TEMP 99.1; O2SAT 94
[2023-07-31 17:00] VITALS: BP 120/54; PULSE 85; RESP 18; TEMP 98.4; O2SAT 96
[2023-07-31] MEDS: ATORVASTATIN 20 MG TAB PO SCH (21:31)
[2023-07-31] MEDS: ACETAMINOPHEN 325 MG TAB PO PRN (21:40)
[2023-07-31 22:00] VITALS: BP 106/61; PULSE 86; RESP 18; O2SAT 95
[2023-08-01 05:00] VITALS: BP 110/68; PULSE 84; RESP 18; O2SAT 96
[2023-08-01] MEDS: levETIRAcetam 500 mg/100ml 100 ML IV SCH ×3 (05:32→22:08)
[2023-08-01] MEDS: CARBIDOPA W LEVODOPA 25/100mg TABLET PO SCH ×3 (05:35→21:08)
[2023-08-01] MEDS: carBAMazepine 200 MG TAB PO SCH ×3 (05:35→21:08)
[2023-08-01 08:10] VITALS: PULSE 79; O2SAT 95
[2023-08-01 09:00] VITALS: BP 122/68; PULSE 80; RESP 18; TEMP 98.4; O2SAT 97
[2023-08-01] MEDS: cefTRIAXone 1GM/50ML D5W 50 ML IV SCH (09:19)
[2023-08-01] MEDS: FOLIC ACID 1 MG in D5W 5% 50 ML INJ SCH (09:20)
[2023-08-01] MEDS: PANTOPRAZOLE 40 MG/10 ML VIAL INJ IV SCH ×2 (09:20→21:09)
[2023-08-01] MEDS: THIAMINE 100mg/ml INJ (200mg/2ml VIAL) IV SCH (09:21)
[2023-08-01] MEDS: CLOPIDOGREL BISULFATE 75 MG TAB PO SCH (09:21)
[2023-08-01] MEDS: D5W 5% 1,000 ML IV SCH (11:30)
[2023-08-01 13:00] VITALS: BP 124/59; PULSE 80; RESP 18; TEMP 98.2; O2SAT 95
[2023-08-01] MEDS ORDERED: GOLYTELY 4L KIT PO ONE (16:00)
[2023-08-01] MEDS: ACETAMINOPHEN 325 MG TAB PO PRN (19:49)
[2023-08-01 20:00] VITALS: PULSE 111
[2023-08-01] MEDS: ATORVASTATIN 20 MG TAB PO SCH (21:08)
[2023-08-01 22:00] VITALS: BP 106/58; PULSE 86; RESP 18; TEMP 98.4; O2SAT 95
[2023-08-02] VITALS (7 sets, daily range): BP systolic 91–133; BP diastolic 55–64; PULSE 75–95; RESP 18; TEMP 97.7–98; O2SAT 92–98
[2023-08-02] MEDS: D5W 5% 1,000 ML IV SCH ×2 (01:33→13:54)
[2023-08-02] MEDS: levETIRAcetam 500 mg/100ml 100 ML IV SCH ×3 (05:40→21:32)
[2023-08-02] MEDS: carBAMazepine 200 MG TAB PO SCH ×3 (05:40→21:31)
[2023-08-02] MEDS: CARBIDOPA W LEVODOPA 25/100mg TABLET PO SCH ×3 (05:41→21:31)
[2023-08-02] MEDS: PANTOPRAZOLE 40 MG/10 ML VIAL INJ IV SCH ×2 (10:00→21:31)
[2023-08-02] MEDS: cefTRIAXone 1GM/50ML D5W 50 ML IV SCH (10:00)
[2023-08-02] MEDS: CLOPIDOGREL BISULFATE 75 MG TAB PO SCH ×2 (10:00→14:00)
[2023-08-02] MEDS: FOLIC ACID 1 MG in D5W 5% 50 ML INJ SCH (10:01)
[2023-08-02] MEDS: THIAMINE 100mg/ml INJ (200mg/2ml VIAL) IV SCH (10:02)
[2023-08-02] MEDS: ATORVASTATIN 20 MG TAB PO SCH (21:31)
[2023-08-03] VITALS (7 sets, daily range): BP systolic 102–141; BP diastolic 60–68; PULSE 75–94; RESP 16–22; TEMP 97.3–98.3; O2SAT 94–100
[2023-08-03 05:13] LABS: Basophils # (auto) 0 10 ^3/uL (0-0.2); Basophils % (auto) 0.7 % (0.0-2.0); Eosinophils # (auto) 0.2 10 ^3/uL (0-0.8); Eosinophils % (auto) 2.7 % (0.0-7.0); Hematocrit 22.2 % (41.0-53.0); Hemoglobin 7.3 g/dL (13.5-17.5); Lymphocytes # (auto) 1.2 10 ^3/uL (0.4-5.4); Lymphocytes % (auto) 18.8 % (10.0-50.0); Mean Corpuscular Hemoglobin 30.6 pg (28.0-32.0); Mean Corpuscular Hgb Conc. 32.9 g/dL (32.0-36.0); Mean Corpuscular Volume 93.1 fL (80.0-100.0); Monocytes # (auto) 0.7 10 ^3/uL (0-1.3); Monocytes % (auto) 11.2 % (0.0-12.0); Neutrophils # (auto) 4.4 10 ^3/uL (1.6-8.6); Neutrophils % (auto) 66.6 % (37.0-80.0); Red Blood Cells 2.38 10^6/uL (4.5-5.90); Red Cell Distribution Width 16.9 % (11.8-14.3); White Blood Cell 6.7 10^3/uL (4.4-10.8)
[2023-08-03 05:21] LABS: INR 1.02 (0.9-1.15); Prothrombin Time 10.7 sec (9.3-11.8)
[2023-08-03 05:34] LABS: Alkaline Phosphatase 56 U/L (46-116); Anion Gap 8 (5-15); Aspartate Aminotransferase 16 U/L (13-40); Calcium 8.4 mg/dL (8.5-10.1); Carbon Dioxide 25 mmol/L (20-30); Chloride 109 mmol/L (98-107); Glucose 88 mg/dL (74-106); Potassium 3.8 mmol/L (3.5-5.1); Sodium 142 mmol/L (136-145)
[2023-08-03 05:35] LABS: Bilirubin, Total 0.2 mg/dL (0.2-1.0); Total Protein 5.5 g/dL (5.7-8.2)
[2023-08-03 05:36] LABS: Alanine Aminotransferase < 9 U/L (7-40); BUN/Creatinine Ratio 5.6 (10.0-20.0); Blood Urea Nitrogen < 5 mg/dL (9-23)
[2023-08-03] MEDS: PANTOPRAZOLE 40 MG/10 ML VIAL INJ IV SCH ×2 (08:42→21:50)
[2023-08-03] MEDS: THIAMINE 100mg/ml INJ (200mg/2ml VIAL) IV SCH (08:42)
[2023-08-03] MEDS: levETIRAcetam 500 mg/100ml 100 ML IV SCH ×3 (08:43→21:50)
[2023-08-03] MEDS: carBAMazepine 200 MG TAB PO SCH ×3 (08:43→21:51)
[2023-08-03] MEDS: cefTRIAXone 1GM/50ML D5W 50 ML IV SCH (08:43)
[2023-08-03] MEDS: CARBIDOPA W LEVODOPA 25/100mg TABLET PO SCH ×3 (08:43→21:51)
[2023-08-03] MEDS: FOLIC ACID 1 MG in D5W 5% 50 ML INJ SCH (12:55)
[2023-08-03] MEDS: D5W 5% 1,000 ML IV SCH ×2 (13:30→23:30)
[2023-08-03] MEDS ORDERED: GOLYTELY 4L KIT PO ONE (16:00)
[2023-08-03] MEDS ORDERED: MAGNESIUM CITRATE SOLUTION 300 ML BTL PO ONE (18:00)
[2023-08-03] MEDS ORDERED: NEOMYCIN SULFATE 500 MG TAB PO ONE (19:00)
[2023-08-03] MEDS: ATORVASTATIN 20 MG TAB PO SCH (21:51)
[2023-08-04] VITALS (12 sets, daily range): BP systolic 109–138; BP diastolic 55–70; PULSE 84–114; RESP 13–22; TEMP 97.8–99; O2SAT 97–100
[2023-08-04] MEDS ORDERED: MAGNESIUM CITRATE SOLUTION 300 ML BTL PO ONE (00:01)
[2023-08-04] MEDS ORDERED: GOLYTELY 4L KIT PO ONE (06:00)
[2023-08-04] MEDS: carBAMazepine 200 MG TAB PO SCH ×3 (06:00→22:00)
[2023-08-04] MEDS: CARBIDOPA W LEVODOPA 25/100mg TABLET PO SCH ×3 (06:00→22:00)
[2023-08-04] MEDS: levETIRAcetam 500 mg/100ml 100 ML IV SCH ×3 (06:08→21:55)
[2023-08-04] MEDS ORDERED: fentaNYL CITRATE 100 MCG/2 ML VL ONE ×2 (08:12→09:47)
[2023-08-04] MEDS ORDERED: SUCCINYLCHOLINE CHLORIDE 20 MG/ML 10ML VIAL IV ONE (08:23)
[2023-08-04] MEDS: cefTRIAXone 1GM/50ML D5W 50 ML IV SCH (09:00)
[2023-08-04] MEDS ORDERED: LIDOCAINE 1% HCL (LOCAL ANESTH.) INJ 20ML MDV ONE (09:07)
[2023-08-04] MEDS ORDERED: ceFAZolin 2 GM/D5W100ml 100 ML IV ONE (09:07)
[2023-08-04] MEDS ORDERED: BUPIVACAINE HCL 0.25% P/F 10 ML VIAL ONE (09:07)
[2023-08-04] MEDS ORDERED: ROCURONIUM 10MG/ML 10ML VIAL IV ONE (09:25)
[2023-08-04] MEDS ORDERED: ePHEDrine SULFATE 50 MG/ML AMP ONE (09:27)
[2023-08-04] MEDS ORDERED: PHENYLEPHRINE HCL 10 MG/ML VL ONE (09:31)
[2023-08-04] MEDS: THIAMINE 100mg/ml INJ (200mg/2ml VIAL) IV SCH (10:00)
[2023-08-04] MEDS ORDERED: SUGAMMADEX 200mg/2ml Vial (100MG/ML) IV ONE (11:03)
[2023-08-04] MEDS ORDERED: MEPERIDINE HCL (25 MG/ML) 1ML VIAL ONE ×2 (11:12→11:17)
[2023-08-04] MEDS ORDERED: MEPERIDINE HCL (25 MG/ML) 1ML VIAL IV PRN (11:45)
[2023-08-04] MEDS ORDERED: ONDANSETRON HCL 4 MG/2 ML VIAL IV PRN (11:45)
[2023-08-04] MEDS ORDERED: HYDROmorphone HCL 2 MG/ML VL/or syr ONE (12:08)
[2023-08-04] MEDS: HYDROmorphone HCL 2 MG/ML VL/or syr IV PRN ×6 (12:13→21:54)
[2023-08-04] MEDS: FOLIC ACID 1 MG in D5W 5% 50 ML INJ SCH (14:54)
[2023-08-04] MEDS: PANTOPRAZOLE 40 MG/10 ML VIAL INJ IV SCH ×2 (16:07→21:54)
[2023-08-04] MEDS: D5W 5% 1,000 ML IV SCH (16:09)
[2023-08-04] MEDS: ATORVASTATIN 20 MG TAB PO SCH (22:00)
[2023-08-05] VITALS (22 sets, daily range): BP systolic 95–140; BP diastolic 41–69; PULSE 79–137; RESP 11–20; TEMP 98.1–101.3; O2SAT 95–100
[2023-08-05] MEDS ORDERED: ACETAMINOPHEN 650 MG RECT SUPP PR ONE (01:30)
[2023-08-05] MEDS: HYDROmorphone HCL 2 MG/ML VL/or syr IV PRN ×4 (01:44→16:53)
[2023-08-05] MEDS: D5W 5% 1,000 ML IV SCH ×3 (02:03→14:18)
[2023-08-05 04:02] LABS: Basophils # (auto) 0 10 ^3/uL (0-0.2); Eosinophils # (auto) 0 10 ^3/uL (0-0.8); Eosinophils % (auto) 0.1 % (0.0-7.0); Lymphocytes # (auto) 0.9 10 ^3/uL (0.4-5.4)
[2023-08-05 04:06] LABS: Basophils % (auto) 0.4 % (0.0-2.0); Hematocrit 25.7 % (41.0-53.0); Hemoglobin 8.3 g/dL (13.5-17.5); Lymphocytes % (auto) 9.3 % (10.0-50.0); Mean Corpuscular Hemoglobin 30.3 pg (28.0-32.0); Mean Corpuscular Hgb Conc. 32.2 g/dL (32.0-36.0); Mean Corpuscular Volume 94.1 fL (80.0-100.0); Monocytes % (auto) 9.5 % (0.0-12.0); Neutrophils % (auto) 80.7 % (37.0-80.0); Red Blood Cells 2.73 10^6/uL (4.5-5.90); Red Cell Distribution Width 16.9 % (11.8-14.3)
[2023-08-05 04:32] LABS: Alanine Aminotransferase 14 U/L (7-40); Albumin 3.2 g/dL (3.2-4.8); Alkaline Phosphatase 59 U/L (46-116); Anion Gap 9 (5-15); Aspartate Aminotransferase 15 U/L (13-40); Bilirubin, Total < 0.2 mg/dL (0.2-1.0); Blood Urea Nitrogen 5 mg/dL (9-23); Calcium 8.5 mg/dL (8.7-10.4); Carbon Dioxide 24 mmol/L (20-30); Chloride 116 mmol/L (98-107); Glucose 143 mg/dL (74-106); Potassium 3.6 mmol/L (3.5-5.1); Total Protein 6.1 g/dL (5.7-8.2)
[2023-08-05 04:36] LABS: Sodium 149 mmol/L (136-145)
[2023-08-05] MEDS: CARBIDOPA W LEVODOPA 25/100mg TABLET PO SCH ×4 (06:00→23:37)
[2023-08-05] MEDS: carBAMazepine 200 MG TAB PO SCH ×3 (06:00→23:51)
[2023-08-05] MEDS: levETIRAcetam 500 mg/100ml 100 ML IV SCH ×3 (06:21→23:37)
[2023-08-05] MEDS: cefTRIAXone 1GM/50ML D5W 50 ML IV SCH (09:58)
[2023-08-05] MEDS: PANTOPRAZOLE 40 MG/10 ML VIAL INJ IV SCH ×2 (09:58→23:43)
[2023-08-05] MEDS: THIAMINE 100mg/ml INJ (200mg/2ml VIAL) IV SCH (09:58)
[2023-08-05] MEDS: FOLIC ACID 1 MG in D5W 5% 50 ML INJ SCH (10:05)
[2023-08-05] MEDS: ACETAMINOPHEN 325 MG TAB PO PRN (22:09)
[2023-08-05] MEDS: ATORVASTATIN 20 MG TAB PO SCH (23:36)
[2023-08-06] VITALS (9 sets, daily range): BP systolic 110–124; BP diastolic 48–72; PULSE 77–104; RESP 16–19; TEMP 97.8–99.6; O2SAT 90–99
[2023-08-06] MEDS: D5W 5% 1,000 ML IV SCH ×3 (01:30→21:30)
[2023-08-06] MEDS: carBAMazepine 200 MG TAB PO SCH ×3 (06:12→20:46)
[2023-08-06] MEDS: levETIRAcetam 500 mg/100ml 100 ML IV SCH ×3 (06:21→21:19)
[2023-08-06 06:44] LABS: Basophils # (auto) 0 10 ^3/uL (0-0.2); Basophils % (auto) 0.4 % (0.0-2.0); Eosinophils # (auto) 0.2 10 ^3/uL (0-0.8); Eosinophils % (auto) 1.7 % (0.0-7.0); Hematocrit 23.6 % (41.0-53.0); Hemoglobin 7.3 g/dL (13.5-17.5); Lymphocytes # (auto) 0.9 10 ^3/uL (0.4-5.4); Mean Corpuscular Hemoglobin 29.9 pg (28.0-32.0); Mean Corpuscular Hgb Conc. 31.1 g/dL (32.0-36.0); Mean Corpuscular Volume 95.9 fL (80.0-100.0); Monocytes % (auto) 9.6 % (0.0-12.0); Neutrophils % (auto) 79.3 % (37.0-80.0); Red Blood Cells 2.46 10^6/uL (4.5-5.90); Red Cell Distribution Width 16.8 % (11.8-14.3); White Blood Cell 10.1 10^3/uL (4.4-10.8)
[2023-08-06 06:59] LABS: Anion Gap 6 (5-15); Carbon Dioxide 24 mmol/L (20-30); Chloride 112 mmol/L (98-107); Potassium 3.6 mmol/L (3.5-5.1); Sodium 142 mmol/L (136-145)
[2023-08-06 07:01] LABS: Calcium 8.1 mg/dL (8.7-10.4)
[2023-08-06 07:05] LABS: Glucose 104 mg/dL (74-106)
[2023-08-06 07:11] LABS: BUN/Creatinine Ratio 5.7 (10.0-20.0); Blood Urea Nitrogen < 5 mg/dL (9-23)
[2023-08-06] MEDS: cefTRIAXone 1GM/50ML D5W 50 ML IV SCH (08:44)
[2023-08-06] MEDS: THIAMINE 100mg/ml INJ (200mg/2ml VIAL) IV SCH (10:07)
[2023-08-06] MEDS: PANTOPRAZOLE 40 MG/10 ML VIAL INJ IV SCH ×2 (10:07→20:46)
[2023-08-06] MEDS: FOLIC ACID 1 MG in D5W 5% 50 ML INJ SCH (10:20)
[2023-08-06] MEDS: HYDROmorphone HCL 2 MG/ML VL/or syr IV PRN (11:43)
[2023-08-06] MEDS: CARBIDOPA W LEVODOPA 25/100mg TABLET PO SCH ×2 (14:39→20:46)
[2023-08-06] MEDS: ATORVASTATIN 20 MG TAB PO SCH (20:46)
[2023-08-07] VITALS (8 sets, daily range): BP systolic 115–137; BP diastolic 42–81; PULSE 76–100; RESP 16–18; TEMP 98.1–98.6; O2SAT 96–100
[2023-08-07] MEDS: CARBIDOPA W LEVODOPA 25/100mg TABLET PO SCH ×4 (06:00→21:42)
[2023-08-07] MEDS: carBAMazepine 200 MG TAB PO SCH ×4 (06:00→21:42)
[2023-08-07] MEDS: levETIRAcetam 500 mg/100ml 100 ML IV SCH ×4 (06:00→21:41)
[2023-08-07] MEDS: D5W 5% 1,000 ML IV SCH ×2 (07:30→17:30)
[2023-08-07] MEDS: cefTRIAXone 1GM/50ML D5W 50 ML IV SCH (08:30)
[2023-08-07] MEDS: HYDROmorphone HCL 2 MG/ML VL/or syr IV PRN ×2 (08:46→18:05)
[2023-08-07] MEDS: PANTOPRAZOLE 40 MG/10 ML VIAL INJ IV SCH ×2 (10:37→21:41)
[2023-08-07] MEDS: THIAMINE 100mg/ml INJ (200mg/2ml VIAL) IV SCH (10:37)
[2023-08-07] MEDS: FOLIC ACID 1 MG in D5W 5% 50 ML INJ SCH (10:49)
[2023-08-07] MEDS: ACETAMINOPHEN 325 MG TAB PO PRN (21:42)
[2023-08-07] MEDS: ATORVASTATIN 20 MG TAB PO SCH (21:42)
[2023-08-08] VITALS (7 sets, daily range): BP systolic 109–145; BP diastolic 55–70; PULSE 70–105; RESP 16–18; TEMP 97.3–100.7; O2SAT 94–100
[2023-08-08] MEDS: D5W 5% 1,000 ML IV SCH ×3 (01:27→23:43)
[2023-08-08] MEDS: HYDROmorphone HCL 2 MG/ML VL/or syr IV PRN ×2 (05:30→15:54)
[2023-08-08] MEDS: levETIRAcetam 500 mg/100ml 100 ML IV SCH ×3 (05:31→22:28)
[2023-08-08] MEDS: CARBIDOPA W LEVODOPA 25/100mg TABLET PO SCH ×3 (05:31→20:51)
[2023-08-08] MEDS: carBAMazepine 200 MG TAB PO SCH ×3 (05:31→22:29)
[2023-08-08] MEDS: cefTRIAXone 1GM/50ML D5W 50 ML IV SCH (10:41)
[2023-08-08] MEDS: PANTOPRAZOLE 40 MG/10 ML VIAL INJ IV SCH ×2 (10:42→22:28)
[2023-08-08] MEDS: THIAMINE 100mg/ml INJ (200mg/2ml VIAL) IV SCH (10:49)
[2023-08-08] MEDS: FOLIC ACID 1 MG in D5W 5% 50 ML INJ SCH (11:59)
[2023-08-08 12:28] LABS: Basophils # (auto) 0 10 ^3/uL (0-0.2); Eosinophils # (auto) 0.3 10 ^3/uL (0-0.8); Hemoglobin 7.2 g/dL (13.5-17.5); Lymphocytes # (auto) 0.9 10 ^3/uL (0.4-5.4); Monocytes # (auto) 0.5 10 ^3/uL (0-1.3); Neutrophils # (auto) 4.5 10 ^3/uL (1.6-8.6)
[2023-08-08 12:30] LABS: Basophils % (auto) 0.5 % (0.0-2.0); Hematocrit 22.8 % (41.0-53.0); Lymphocytes % (auto) 14.7 % (10.0-50.0); Mean Corpuscular Hemoglobin 29.3 pg (28.0-32.0); Mean Corpuscular Hgb Conc. 31.5 g/dL (32.0-36.0); Mean Corpuscular Volume 92.9 fL (80.0-100.0); Monocytes % (auto) 8.6 % (0.0-12.0); Neutrophils % (auto) 71.2 % (37.0-80.0); Nucleated Red Blood Cells % 0.1 %; Red Blood Cells 2.45 10^6/uL (4.5-5.90); Red Cell Distribution Width 16.6 % (11.8-14.3); White Blood Cell 6.4 10^3/uL (4.4-10.8)
[2023-08-08 12:49] LABS: Albumin 2.8 g/dL (3.2-4.8); Alkaline Phosphatase 52 U/L (46-116); Anion Gap 6 (5-15); Aspartate Aminotransferase 18 U/L (13-40); Bilirubin, Total < 0.2 mg/dL (0.2-1.0); Calcium 8.2 mg/dL (8.5-10.1); Carbon Dioxide 23 mmol/L (20-30); Chloride 116 mmol/L (98-107); Glucose 104 mg/dL (74-106); Potassium 3.2 mmol/L (3.5-5.1); Sodium 145 mmol/L (136-145); Total Protein 5.4 g/dL (5.7-8.2)
[2023-08-08 12:54] LABS: Alanine Aminotransferase < 9 U/L (7-40); Blood Urea Nitrogen < 5 mg/dL (9-23)
[2023-08-08] MEDS ORDERED: POTASSIUM EFFERVESENT TAB 25 MEQ PO ONE (18:45)
[2023-08-08] MEDS ORDERED: CARBIDOPA W LEVODOPA 25/100mg TABLET PO SCH (20:30)
[2023-08-08] MEDS: ATORVASTATIN 20 MG TAB PO SCH (22:29)
[2023-08-08] MEDS: ACETAMINOPHEN 325 MG TAB PO PRN (22:29)
[2023-08-09] MEDS: CARBIDOPA W LEVODOPA 25/100mg TABLET PO SCH ×4 (02:34→22:35)
[2023-08-09] MEDS ORDERED: levETIRAcetam 500 MG/5ML INJ IV ONE (04:36)
[2023-08-09 05:00] VITALS: BP 111/66; PULSE 104; RESP 20; TEMP 102.3; O2SAT 96
[2023-08-09] MEDS: ACETAMINOPHEN 325 MG TAB PO PRN (05:40)
[2023-08-09] MEDS: levETIRAcetam 500 mg/100ml 100 ML IV SCH ×3 (05:40→22:30)
[2023-08-09] MEDS: carBAMazepine 200 MG TAB PO SCH ×3 (05:40→22:34)
[2023-08-09 05:48] LABS: Basophils # (auto) 0 10 ^3/uL (0-0.2); Eosinophils # (auto) 0.1 10 ^3/uL (0-0.8); Hemoglobin 7.4 g/dL (13.5-17.5); Lymphocytes # (auto) 0.9 10 ^3/uL (0.4-5.4); Monocytes # (auto) 0.6 10 ^3/uL (0-1.3)
[2023-08-09 05:51] LABS: Basophils % (auto) 0.5 % (0.0-2.0); Eosinophils % (auto) 0.8 % (0.0-7.0); Hematocrit 23.6 % (41.0-53.0); Lymphocytes % (auto) 11.1 % (10.0-50.0); Mean Corpuscular Hemoglobin 29.1 pg (28.0-32.0); Mean Corpuscular Hgb Conc. 31.2 g/dL (32.0-36.0); Monocytes % (auto) 6.9 % (0.0-12.0); Neutrophils # (auto) 6.7 10 ^3/uL (1.6-8.6); Neutrophils % (auto) 80.7 % (37.0-80.0); Red Blood Cells 2.53 10^6/uL (4.5-5.90); White Blood Cell 8.3 10^3/uL (4.4-10.8)
[2023-08-09 05:56] LABS: Albumin 2.8 g/dL (3.2-4.8); Alkaline Phosphatase 54 U/L (46-116); Anion Gap 8 (5-15); Aspartate Aminotransferase 20 U/L (13-40); Calcium 8.4 mg/dL (8.5-10.1); Carbon Dioxide 22 mmol/L (20-30); Chloride 119 mmol/L (98-107); Glucose 97 mg/dL (74-106); Potassium 3.6 mmol/L (3.5-5.1); Sodium 149 mmol/L (136-145)
[2023-08-09 05:57] LABS: Bilirubin, Total 0.2 mg/dL (0.2-1.0); Total Protein 5.5 g/dL (5.7-8.2)
[2023-08-09 05:59] LABS: Alanine Aminotransferase < 9 U/L (7-40); BUN/Creatinine Ratio 5.2 (10.0-20.0); Blood Urea Nitrogen < 5 mg/dL (9-23)
[2023-08-09 08:00] VITALS: PULSE 70; PULSE 93; RESP 16; O2SAT 95
[2023-08-09 09:00] VITALS: BP 114/54; PULSE 92; RESP 18; TEMP 98.5; O2SAT 92
[2023-08-09] MEDS: D5W 5% 1,000 ML IV SCH ×2 (09:30→19:30)
[2023-08-09] MEDS: THIAMINE 100mg/ml INJ (200mg/2ml VIAL) IV SCH (10:05)
[2023-08-09] MEDS: PANTOPRAZOLE 40 MG/10 ML VIAL INJ IV SCH ×2 (10:05→22:33)
[2023-08-09] MEDS: cefTRIAXone 1GM/50ML D5W 50 ML IV SCH (10:06)
[2023-08-09] MEDS: HYDROmorphone HCL 2 MG/ML VL/or syr IV PRN (10:16)
[2023-08-09] MEDS: FOLIC ACID 1 MG in D5W 5% 50 ML INJ SCH (11:09)
[2023-08-09 13:00] VITALS: BP 119/56; PULSE 86; RESP 18; TEMP 98.6; O2SAT 97
[2023-08-09] MEDS ORDERED: CEFEPIME 1GM/ 50ML 50 ML IV SCH (14:00)
[2023-08-09] MEDS: metroNIDAZOLE 500MG/100ML 100 ML IV SCH ×2 (15:58→22:38)
[2023-08-09 17:00] VITALS: BP 97/57; PULSE 92; RESP 18; TEMP 98.8; O2SAT 97
[2023-08-09] MEDS: CEFEPIME 1GM/ 50ML 50 ML IV SCH (17:10)
[2023-08-09 17:20] LABS: COVID19 ANTIGEN SOFIA FIA NEGATIVE (NEGATIVE); Rapid Influenza A Negative (Negative); Rapid Influenza B Negative (Negative)
[2023-08-09] MEDS: ATORVASTATIN 20 MG TAB PO SCH (22:34)
[2023-08-10] VITALS (9 sets, daily range): BP systolic 103–119; BP diastolic 45–67; PULSE 70–91; RESP 16–20; TEMP 97.3–98.7; O2SAT 95–99
[2023-08-10] MEDS: CARBIDOPA W LEVODOPA 25/100mg TABLET PO SCH ×4 (01:57→22:48)
[2023-08-10] MEDS: CEFEPIME 1GM/ 50ML 50 ML IV SCH ×3 (01:57→19:25)
[2023-08-10] MEDS: D5W 5% 1,000 ML IV SCH ×2 (05:30→16:30)
[2023-08-10] MEDS: levETIRAcetam 500 mg/100ml 100 ML IV SCH ×2 (05:56→16:31)
[2023-08-10] MEDS: carBAMazepine 200 MG TAB PO SCH ×3 (05:58→22:47)
[2023-08-10] MEDS: metroNIDAZOLE 500MG/100ML 100 ML IV SCH ×2 (06:01→17:17)
[2023-08-10 06:20] LABS: Anion Gap 8 (5-15); Carbon Dioxide 22 mmol/L (20-30); Chloride 118 mmol/L (98-107); Potassium 3.1 mmol/L (3.5-5.1); Sodium 148 mmol/L (136-145)
[2023-08-10 06:21] LABS: Calcium 7.7 mg/dL (8.7-10.4)
[2023-08-10 06:22] LABS: Basophils # (auto) 0 10 ^3/uL (0-0.2); Eosinophils # (auto) 0.3 10 ^3/uL (0-0.8); Eosinophils % (auto) 3.4 % (0.0-7.0); Lymphocytes # (auto) 1.2 10 ^3/uL (0.4-5.4); Monocytes # (auto) 0.6 10 ^3/uL (0-1.3); Red Cell Distribution Width 17.2 % (11.8-14.3)
[2023-08-10 06:25] LABS: Basophils % (auto) 0.4 % (0.0-2.0); Hematocrit 21.6 % (41.0-53.0); Lymphocytes % (auto) 15.8 % (10.0-50.0); Mean Corpuscular Hemoglobin 29.4 pg (28.0-32.0); Mean Corpuscular Hgb Conc. 31.7 g/dL (32.0-36.0); Mean Corpuscular Volume 92.6 fL (80.0-100.0); Monocytes % (auto) 8.4 % (0.0-12.0); Neutrophils # (auto) 5.3 10 ^3/uL (1.6-8.6); Nucleated Red Blood Cells % 0.1 %; Red Blood Cells 2.33 10^6/uL (4.5-5.90); White Blood Cell 7.3 10^3/uL (4.4-10.8)
[2023-08-10 06:26] LABS: BUN/Creatinine Ratio 5.6 (10.0-20.0); Blood Urea Nitrogen 5 mg/dL (9-23); Glucose 97 mg/dL (74-106); Magnesium 1.7 mg/dL (1.6-2.6)
[2023-08-10 06:41] LABS: Hemoglobin 6.8 g/dL (13.5-17.5)
[2023-08-10] MEDS ORDERED: POTASSIUM CHLORIDE 60 MEQ, LIDOCAINE 1% (LOCAL ANESTH.) 6 ML in SODIUM CHL 0.9% 500 ML IV ONE (08:15)
[2023-08-10] MEDS: FOLIC ACID 1 MG in D5W 5% 50 ML INJ SCH (10:44)
[2023-08-10] MEDS: MAGNESIUM SULFATE 1GM/100ML 100 ML IV SCH ×3 (10:46→14:27)
[2023-08-10] MEDS: PANTOPRAZOLE 40 MG/10 ML VIAL INJ IV SCH (10:48)
[2023-08-10] MEDS: THIAMINE 100mg/ml INJ (200mg/2ml VIAL) IV SCH (10:48)
[2023-08-10] MEDS ORDERED: FREE WATER GT SCH (12:00)
[2023-08-10] MEDS: FREE WATER GT SCH ×3 (14:00→22:00)
[2023-08-10] MEDS: ATORVASTATIN 20 MG TAB PO SCH (22:47)
[2023-08-11] MEDS: levETIRAcetam 500 mg/100ml 100 ML IV SCH ×2 (00:24→06:39)
[2023-08-11] MEDS: PANTOPRAZOLE 40 MG/10 ML VIAL INJ IV SCH ×2 (00:24→09:31)
[2023-08-11] MEDS: D5W 5% 1,000 ML IV SCH ×2 (01:30→09:39)
[2023-08-11] MEDS: FREE WATER GT SCH ×3 (01:41→09:46)
[2023-08-11] MEDS: CARBIDOPA W LEVODOPA 25/100mg TABLET PO SCH ×3 (01:41→12:53)
[2023-08-11] MEDS: CEFEPIME 1GM/ 50ML 50 ML IV SCH ×2 (01:41→09:37)
[2023-08-11] MEDS: metroNIDAZOLE 500MG/100ML 100 ML IV SCH ×2 (01:41→05:59)
[2023-08-11 05:00] VITALS: BP 97/51; PULSE 78; RESP 22; TEMP 99.7; O2SAT 95
[2023-08-11] MEDS: carBAMazepine 200 MG TAB PO SCH ×2 (05:59→12:56)
[2023-08-11 06:14] LABS: Anion Gap 8 (5-15); Carbon Dioxide 20 mmol/L (20-30); Chloride 115 mmol/L (98-107); Potassium 3.6 mmol/L (3.5-5.1); Sodium 143 mmol/L (136-145)
[2023-08-11 06:15] LABS: Calcium 7.6 mg/dL (8.7-10.4)
[2023-08-11 06:20] LABS: Glucose 100 mg/dL (74-106); Magnesium 2.2 mg/dL (1.6-2.6)
[2023-08-11 06:27] LABS: BUN/Creatinine Ratio 6.2 (10.0-20.0); Blood Urea Nitrogen < 5 mg/dL (9-23)
[2023-08-11 06:28] LABS: Basophils # (auto) 0 10 ^3/uL (0-0.2); Basophils % (auto) 0.5 % (0.0-2.0); Eosinophils # (auto) 0.5 10 ^3/uL (0-0.8); Eosinophils % (auto) 5.5 % (0.0-7.0); Hematocrit 26.1 % (41.0-53.0); Hemoglobin 8.1 g/dL (13.5-17.5); Lymphocytes # (auto) 1.2 10 ^3/uL (0.4-5.4); Mean Corpuscular Hemoglobin 29.7 pg (28.0-32.0); Mean Corpuscular Volume 95.8 fL (80.0-100.0); Monocytes # (auto) 0.7 10 ^3/uL (0-1.3); Monocytes % (auto) 8.8 % (0.0-12.0); Neutrophils % (auto) 71.2 % (37.0-80.0); Red Blood Cells 2.73 10^6/uL (4.5-5.90); Red Cell Distribution Width 16.9 % (11.8-14.3); White Blood Cell 8.4 10^3/uL (4.4-10.8)
[2023-08-11 08:43] VITALS: BP 126/62; PULSE 77; RESP 16; TEMP 98.8; O2SAT 98
[2023-08-11] MEDS: THIAMINE 100mg/ml INJ (200mg/2ml VIAL) IV SCH (09:31)
[2023-08-11] MEDS: FOLIC ACID 1 MG in D5W 5% 50 ML INJ SCH (09:37)
[2023-08-11 12:59] VITALS: BP 131/66; PULSE 78; RESP 17; TEMP 98.5; O2SAT 97
== END 2023-08-11 15:40 | disposition hospice, home (50) | DRG 853 ==
LOC: ER 02:23 → TELE 05:05 → TELE-WESTW 05:10 → ICU WEST 08-04 16:18 → TELE-CENTR 08-05 16:14 → CENTRAL 08-09 12:53
PROVIDERS: ADMIT Hospitalist; ATTEND Internal Medicine
PROC: 0DP60UZ Removal of Feeding Device from Stomach, Open Approach (ICD-10-PCS; 2023-08-04)
PROC: 0DH60UZ Insertion of Feeding Device into Stomach, Open Approach (ICD-10-PCS; 2023-08-04)
PROC: 0WQF0ZZ Repair Abdominal Wall, Open Approach (ICD-10-PCS; principal; 2023-08-04 09:13)
PROC: 30233N1 Transfusion of Nonautologous Red Blood Cells into Peripheral Vein, Percutaneous Approach (ICD-10-PCS; 2023-08-10)
DX: A41.9 Sepsis, unspecified organism (principal); G93.41 Metabolic encephalopathy; J96.01 Acute respiratory failure with hypoxia; N17.0 Acute kidney failure with tubular necrosis; J15.0 Pneumonia due to Klebsiella pneumoniae; E87.0 Hyperosmolality and hypernatremia; J44.0 Chronic obstructive pulmonary disease with (acute) lower respiratory infection; K94.23 Gastrostomy malfunction; K31.6 Fistula of stomach and duodenum; E46 Unspecified protein-calorie malnutrition; Q43.8 Other specified congenital malformations of intestine; D64.9 Anemia, unspecified; E03.9 Hypothyroidism, unspecified; E78.5 Hyperlipidemia, unspecified; E86.0 Dehydration; F20.9 Schizophrenia, unspecified; G20.A1 Parkinson's disease without dyskinesia, without mention of fluctuations; G40.909 Epilepsy, unspecified, not intractable, without status epilepticus; R65.20 Severe sepsis without septic shock; B95.2 Enterococcus as the cause of diseases classified elsewhere; N30.90 Cystitis, unspecified without hematuria; F31.9 Bipolar disorder, unspecified; R13.10 Dysphagia, unspecified; G24.01 Drug induced subacute dyskinesia; E87.6 Hypokalemia; I50.9 Heart failure, unspecified; I25.10 Atherosclerotic heart disease of native coronary artery without angina pectoris; I11.0 Hypertensive heart disease with heart failure; Z68.32 Body mass index [BMI] 32.0-32.9, adult; K63.5 Polyp of colon; K66.0 Peritoneal adhesions (postprocedural) (postinfection); R26.9 Unspecified abnormalities of gait and mobility; Z79.02 Long term (current) use of antithrombotics/antiplatelets; Z79.899 Other long term (current) drug therapy; Z80.0 Family history of malignant neoplasm of digestive organs; Z82.0 Family history of epilepsy and other diseases of the nervous system; Z82.49 Family history of ischemic heart disease and other diseases of the circulatory system; Z86.73 Personal history of transient ischemic attack (TIA), and cerebral infarction without residual deficits; Z87.19 Personal history of other diseases of the digestive system; Z91.199 Patient's noncompliance with other medical treatment and regimen due to unspecified reason; Z98.61 Coronary angioplasty status; Z99.3 Dependence on wheelchair; Z88.8 Allergy status to other drugs, medicaments and biological substances
CPT/HCPCS: 36415; 36600; 70450; 71045; 80048; 80053; 80178; 80202; 80320; 81001; 82140; 82270; 82570; 82728; 82805; 82962; 83540; 83550; 83605; 83735; 83880; 83935; 84156; 84300; 84484; 85025; 85610; 85730; 86850; 86900; 86901; 86920; 87040; 87081; 87086; 87088; 87426; 87804; 92610; 93005; 97110; 97116; 97163; 97530; 99291; C9113; G0378; J0330; J2001; J2543; J3490; J7042; J7060

== ENCOUNTER 2024-01-15 01:35 | Inpatient (IN) | payer MEDICARE, MEDICAID ==
[~2024-01-15] VITALS: Ht 177.8 cm; Wt 58.5 kg
[~2024-01-15 01:35] MED LIST changes: -LUBI24CA6 PO; +LUBI24CA7 PO
[2024-01-15 02:12] LABS: Urine Bacteria None Seen /hpf (None Seen)
[2024-01-15 02:15] VITALS: RESP 10; O2SAT 100
[2024-01-15 02:24] LABS: Basophils # (auto) 0.1 10 ^3/uL (0-0.2); Basophils % (auto) 0.7 % (0.0-2.0); Eosinophils # (auto) 0.4 10 ^3/uL (0-0.8); Hematocrit 39.5 % (41.0-53.0); Lymphocytes # (auto) 2.9 10 ^3/uL (0.4-5.4); Lymphocytes % (auto) 38.2 % (10.0-50.0); Mean Corpuscular Hemoglobin 30.6 pg (28.0-32.0); Mean Corpuscular Hgb Conc. 32.9 g/dL (32.0-36.0); Mean Corpuscular Volume 93.1 fL (80.0-100.0); Monocytes # (auto) 0.6 10 ^3/uL (0-1.3); Neutrophils # (auto) 3.6 10 ^3/uL (1.6-8.6); Neutrophils % (auto) 48.1 % (37.0-80.0); Red Blood Cells 4.24 10^6/uL (4.5-5.90); Red Cell Distribution Width 15.4 % (11.8-14.3); White Blood Cell 7.6 10^3/uL (4.4-10.8)
[2024-01-15 02:36] LABS: Urine Blood Negative /uL (Negative); Urine Clarity Clear (Clear); Urine Color Light-Yellow (Yellow); Urine Protein, UAD Negative (Negative); Urine Specific Gravity 1.014 (1.001-1.035); Urine Urobilinogen Normal (Negative); Urine WBC 10 /hpf (0 - 3)
[2024-01-15 02:49] LABS: Albumin 4.3 g/dL (3.2-4.8); Alkaline Phosphatase 67 U/L (46-116); Anion Gap 6 (5-15); Aspartate Aminotransferase 20 U/L (13-40); BUN/Creatinine Ratio 16.7 (10.0-20.0); Blood Urea Nitrogen 20 mg/dL (9-23); Calcium 10.8 mg/dL (8.7-10.4); Carbon Dioxide 28 mmol/L (20-30); Chloride 104 mmol/L (98-107); Glucose 101 mg/dL (74-106); Potassium 4.2 mmol/L (3.5-5.1); Sodium 138 mmol/L (136-145)
[2024-01-15 02:50] LABS: Bilirubin, Total 0.2 mg/dL (0.2-1.0); Total Protein 7.1 g/dL (5.7-8.2)
[2024-01-15 02:54] LABS: Alanine Aminotransferase < 9 U/L (7-40)
[2024-01-15] MEDS: SODIUM CHLORIDE 0.9% 1,000 ML IV ONE (03:21)
[2024-01-15 08:00] VITALS: PULSE 74; RESP 11; O2SAT 95
[2024-01-15] MEDS ORDERED: ACETAMINOPHEN 325 MG TAB PO PRN (09:15)
[2024-01-15] MEDS ORDERED: MORPHINE SULFATE INJ 2 MG/ml SYRG IV PRN (09:15)
[2024-01-15] MEDS ORDERED: NITROGLYCERIN 0.4 MG SL TAB SL PRN (09:15)
[2024-01-15] MEDS ORDERED: DOCUSATE SOD 100 MG CAP PO PRN (09:15)
[2024-01-15] MEDS: SODIUM CHLORIDE 0.9% 1,000 ML IV SCH (10:45)
[2024-01-15] MEDS: ENOXAPARIN SOD 40 MG/0.4 ML SYRINGE SC SCH (10:45)
[2024-01-15] MEDS ORDERED: VALB80CA PO (11:08)
[2024-01-15] MEDS: carBAMazepine 200 MG TAB PO SCH (13:40)
[2024-01-15] MEDS: CARBIDOPA W LEVODOPA 25/100mg TABLET PO SCH (13:40)
[2024-01-15] MEDS: DULoxetine HCL 30 MG CAP PO SCH (13:40)
[2024-01-15] MEDS: levETIRAcetam 500 MG TAB PO SCH (17:26)
[2024-01-15] MEDS: FLEET ENEMA(ADULT) 135 ML PR ONE (17:27)
[2024-01-15] MEDS ORDERED: VALBENAZINE TOSYLATE 60 MG PO SCH (18:00)
[2024-01-15 19:30] VITALS: PULSE 74; RESP 10; O2SAT 100
[2024-01-15] MEDS: LURASIDONE 60 MG PO SCH (19:51)
[2024-01-15] MEDS: [UNRECOGNIZED DRUG - OTHER] PO SCH (19:51)
[2024-01-15] MEDS: ARTIFICIAL TEARS 15ml EACHEYE SCH (21:55)
[2024-01-15] MEDS: DOCUSATE SOD 100 MG CAP PO SCH (21:59)
[2024-01-15] MEDS: [UNRECOGNIZED DRUG - OTHER] PO SCH (22:00)
[2024-01-15] MEDS: LITHIUM CARBONATE 300 MG TAB PO SCH (22:00)
[2024-01-15] MEDS: FLUOCINONIDE 0.05% TOP SCH (22:00)
[2024-01-15] MEDS: LUBIPROSTONE 24 MCG PO SCH (22:00)
[2024-01-15] MEDS: KETOCONAZOLE 2 % TOPICAL CREAM 15GM TOP SCH (22:02)
[2024-01-15] MEDS: HYDROCORTISONE 2.5% TOPICAL CREAM 30GM TUBE TOP SCH (22:02)
[2024-01-16] MEDS: LEVOTHYROXINE SODIUM 88 MCG TAB PO SCH (06:28)
[2024-01-16 07:08] LABS: Basophils # (auto) 0.1 10 ^3/uL (0-0.2); Basophils % (auto) 0.7 % (0.0-2.0); Eosinophils # (auto) 0.3 10 ^3/uL (0-0.8); Eosinophils % (auto) 3.5 % (0.0-7.0); Hematocrit 32.9 % (41.0-53.0); Lymphocytes % (auto) 11.3 % (10.0-50.0); Mean Corpuscular Hemoglobin 30.8 pg (28.0-32.0); Mean Corpuscular Hgb Conc. 33.3 g/dL (32.0-36.0); Mean Corpuscular Volume 92.5 fL (80.0-100.0); Monocytes # (auto) 0.7 10 ^3/uL (0-1.3); Monocytes % (auto) 7.7 % (0.0-12.0); Neutrophils # (auto) 6.8 10 ^3/uL (1.6-8.6); Neutrophils % (auto) 76.8 % (37.0-80.0); Red Blood Cells 3.56 10^6/uL (4.5-5.90); Red Cell Distribution Width 15.6 % (11.8-14.3); White Blood Cell 8.8 10^3/uL (4.4-10.8)
[2024-01-16 07:09] LABS: Chloride 108 mmol/L (98-107); Potassium 3.8 mmol/L (3.5-5.1); Sodium 140 mmol/L (136-145)
[2024-01-16 07:10] LABS: Anion Gap 5 (5-15); Calcium 9.6 mg/dL (8.5-10.1); Carbon Dioxide 27 mmol/L (20-30)
[2024-01-16 07:15] LABS: Alkaline Phosphatase 63 U/L (46-116); Blood Urea Nitrogen 16 mg/dL (9-23); Glucose 96 mg/dL (74-106)
[2024-01-16 07:17] LABS: Albumin 3.7 g/dL (3.2-4.8); Aspartate Aminotransferase 16 U/L (13-40); Bilirubin, Total 0.2 mg/dL (0.2-1.0)
[2024-01-16 07:29] LABS: Alanine Aminotransferase < 9 U/L (7-40)
[2024-01-16 08:19] VITALS: RESP 16; O2SAT 96; O2SAT 99
[2024-01-16] MEDS: [UNRECOGNIZED DRUG - OTHER] PO SCH (10:00)
[2024-01-16] MEDS ORDERED: POLYETHYLENE GLYCOL PROPYLENE EACHEYE SCH (10:00)
[2024-01-16] MEDS: VALBENAZINE 80 MG PO SCH (10:00)
[2024-01-16] MEDS: LACTULOSE 20Gm/30ML SOLN PO SCH (10:59)
[2024-01-16] MEDS: POLYETHYLENE GLYCOL 17 GM PWDR PO SCH (11:01)
[2024-01-16] MEDS: ATORVASTATIN 20 MG TAB PO SCH (11:01)
[2024-01-16] MEDS: CLOPIDOGREL BISULFATE 75 MG TAB PO SCH (11:02)
[2024-01-16] MEDS: CHOLECALCIFEROL (VITD3) 1,000UNIT=25mCg TAB PO SCH (11:02)
[2024-01-16 19:22] VITALS: PULSE 69; RESP 13; O2SAT 100
[2024-01-16] MEDS: cefTRIAXone 1GM/50ML D5W 50 ML IV ONE (19:35)
[2024-01-16] MEDS: LACTULOSE 20Gm/30ML SOLN PO ONE (19:35)
[2024-01-17 06:09] LABS: Anion Gap 4 (5-15); Calcium 9.8 mg/dL (8.7-10.4); Carbon Dioxide 26 mmol/L (20-30); Chloride 109 mmol/L (98-107); Potassium 3.9 mmol/L (3.5-5.1); Sodium 139 mmol/L (136-145)
[2024-01-17 06:14] LABS: Glucose 98 mg/dL (74-106)
[2024-01-17 06:15] LABS: BUN/Creatinine Ratio 14.1 (10.0-20.0); Blood Urea Nitrogen 12 mg/dL (9-23)
[2024-01-17 08:16] VITALS: PULSE 82
[2024-01-17 09:34] VITALS: BP 119/65; PULSE 71; RESP 18; TEMP 98.6; O2SAT 99
[2024-01-17] MEDS: cefTRIAXone 1GM/50ML D5W 50 ML IV SCH (10:22)
[2024-01-17 13:00] VITALS: BP 143/80; PULSE 65; RESP 20; TEMP 98.4; O2SAT 100
[2024-01-17 17:00] VITALS: BP 125/73; PULSE 70; RESP 20; TEMP 99.9; O2SAT 97
[2024-01-17] MEDS: LURASIDONE 60 MG PO SCH (17:35)
[2024-01-17 19:33] LABS: Folate (Folic Acid) 10.37 ng/mL (>5.38)
[2024-01-17 20:00] VITALS: PULSE 93
[2024-01-17 21:00] VITALS: BP 131/71; PULSE 82; RESP 18; TEMP 99; O2SAT 96
[2024-01-18] VITALS (7 sets, daily range): BP systolic 100–115; BP diastolic 65–77; PULSE 75–80; RESP 16–20; TEMP 97.8–99.2; O2SAT 79–97
[2024-01-18] MEDS ORDERED: CEPH250C PO (10:37)
[2024-01-19 07:06] LABS: RPR Non Reactive (Non Reactive)
== END 2024-01-18 18:54 | disposition home health service (06) | DRG 698 ==
LOC: ER 01:35 → TELE 09:10 → TELE-EAST 01-17 08:08 → EAST 01-18 02:02
PROVIDERS: ADMIT Nurse Practitioner Family; ATTEND Internal Medicine
DX: T83.511A Infection and inflammatory reaction due to indwelling urethral catheter, initial encounter (principal); G93.41 Metabolic encephalopathy; N30.00 Acute cystitis without hematuria; G20.A1 Parkinson's disease without dyskinesia, without mention of fluctuations; I10 Essential (primary) hypertension; E78.5 Hyperlipidemia, unspecified; E11.9 Type 2 diabetes mellitus without complications; K59.00 Constipation, unspecified; F31.9 Bipolar disorder, unspecified; I25.10 Atherosclerotic heart disease of native coronary artery without angina pectoris; F20.9 Schizophrenia, unspecified; E03.9 Hypothyroidism, unspecified; I25.2 Old myocardial infarction; R26.9 Unspecified abnormalities of gait and mobility; Z74.01 Bed confinement status; Z93.1 Gastrostomy status; Z85.46 Personal history of malignant neoplasm of prostate; Z86.73 Personal history of transient ischemic attack (TIA), and cerebral infarction without residual deficits; Z80.0 Family history of malignant neoplasm of digestive organs; Z82.0 Family history of epilepsy and other diseases of the nervous system; Z79.899 Other long term (current) drug therapy; Z79.02 Long term (current) use of antithrombotics/antiplatelets; Z82.49 Family history of ischemic heart disease and other diseases of the circulatory system; Y84.8 Other medical procedures as the cause of abnormal reaction of the patient, or of later complication, without mention of misadventure at the time of the procedure; Y92.89 Other specified places as the place of occurrence of the external cause
CPT/HCPCS: 36415; 70450; 71045; 74018; 80048; 80053; 81001; 82607; 82746; 82962; 83605; 83735; 84443; 84484; 85025; 86592; 87040; 93005; 93886; 97163; G0378

== ENCOUNTER → 2024-10-02 | Outpatient (CLI) | payer MEDICARE, MEDICAID ==
[~2024-10-02] MED LIST changes: +CEPH250C PO; -CYA100I PO; +HYDR-4564 PO; -HYDR2TAB3 PO; +VALB80CA PO
[2024-10-02 12:53] LABS: Urine Bacteria FEW /hpf (None Seen); Urine Blood Negative /uL (Negative); Urine Clarity Turbid (Clear); Urine Color Colorless (Yellow); Urine Protein, UAD Negative (Negative); Urine Squamous Epithelial Cell None Seen /hpf (<5); Urine Urobilinogen Normal (Negative); Urine WBC 46 /HPF (0-3); Urine pH 6.5 (5.0-9.0)
== END | disposition home or self-care (01) ==
LOC: LAB 12:02
PROVIDERS: ATTEND Urology
DX: R32 Unspecified urinary incontinence (principal)
CPT/HCPCS: 81001; 84153; 87086

== ENCOUNTER → 2024-11-09 | Outpatient (CLI) | payer MEDICARE, MEDICAID ==
[2024-11-09 12:42] LABS: Urine Bacteria FEW /hpf (None Seen); Urine Blood Negative /uL (Negative); Urine Clarity Clear (Clear); Urine Color Light-Yellow (Yellow); Urine Protein, UAD Negative (Negative); Urine Squamous Epithelial Cell None Seen /hpf (<5); Urine Urobilinogen Normal (Negative); Urine WBC 25 /HPF (0-3)
== END | disposition home or self-care (01) ==
LOC: LAB 12:19
PROVIDERS: ATTEND Urology
DX: N39.0 Urinary tract infection, site not specified (principal); R32 Unspecified urinary incontinence; R33.9 Retention of urine, unspecified; Z97.8 Presence of other specified devices
CPT/HCPCS: 81001; 87086